=== PATIENT | male | born 1935 | race Caucasian/White ===

== ENCOUNTER 2016-10-31 08:34 | Inpatient (IN) ==
[2016-10-31 09:19] LABS: URINE CULTURE PL NEEDED? NO; URINE SOURCE CLEAN CATCH
[2016-10-31] MEDS ORDERED: SOLU-MEDROL IV ONE (09:29)
--- NOTE | 2016-10-31 09:36 | Diag Imaging Result Document ---
PROCEDURE NAME: CHEST-2 VIEWS - 10/31/2016 CHEST, 2 VIEWS: COMPARISON: 05/11/2013. FINDINGS: Heart size is normal. There are sternal wires from previous surgery. There is some tortuosity of the thoracic aorta which appears stable. The lungs appear essentially clear. There is no consolidation, pleural effusion, or pneumothorax identified. IMPRESSION: No evidence of acute disease.
[2016-10-31 09:38] LABS: AGAP 15; ALBUMIN 3.8 g/dL (3.5-5.0); ALKALINE PHOSPHATASE 74 U/L (32-122); BASO% 0.1 % (0.0-0.8); BUN 18 mg/dL (8-22); CHLORIDE 99 mmol/L (98-107); CK PROFILE 23 U/L (24-204); COSMO 276; GOT 16 U/L (10-34); GPT 9 U/L (10-44); HEMATOCRIT 39.9 % (42.0-52.0); IMM GRAN# 0.03 X1000 (0.0-0.04); IMM GRAN% 0.3 % (0.0-0.5); INR 0.92 (0.86-1.15); LYMPH# 0.53 X1000 (1.2-3.4); LYMPH% 5.3 % (20.5-51.1); MAGNESIUM 1.8 mg/dL (1.5-2.7); MANUAL DIFF NEEDED? NO; MCH 30.2 PG (27-31); MCHC 35.1 g/dL (33-37); MONO# 0.72 X1000 (0.11-0.59); MONO% 7.2 % (1.7-9.3); MPV 10.3 FL (7.4-10.4); NEUT% 87.1 % (42.2-75.2); PLT 201 X1000 (130-400); POTASSIUM 4.1 mmol/L (3.5-5.1); PROTIME 12.7 Seconds (12.1-15.5); RBC 4.64 XMIL (4.7-6.1); SODIUM 137 mmol/L (136-145); TCO2 23 mmol/L (25-35); TOTAL PROTEIN 6.5 g/dL (6.3-8.3)
[2016-10-31 09:40] LABS: BE 2.8 mmoll (-3.0-3.0); BLOOD TYPE ARTERIAL; DRAW SITE L RADIAL; METHB 1.6 % (0.0-1.5); O2(CT) 18.8 mL/dL (15.0-23.0); PCO2(98.6) 40 mmHg (35-45); PO2(98.6) 69 mmHg (60-100); SAMPLE BLOOD; SAO2 96.5 % (95.0-100.0); THB 14.4 g/dL (11.5-17.4); pH(98.6) 7.44 (7.35-7.45)
--- NOTE | 2016-10-31 09:41 | PROVIDER DOCUMENTATION ---
HPI-Respiratory General - General Chief Complaint: Shortness of Breath Stated Complaint: Cough/SOB Time Seen by Provider: 10/31/16 08:43 Source: patient, family, EMS Allergies/Adverse Reactions: Patient Allergies Allergy/AdvReac Type Severity Reaction Status Date / Time Sulfa (Sulfonamide Allergy HIVES Verified 10/31/16 08:42 Antibiotics) Home Medications: Home Medication List Medication Instructions Recorded Confirmed Last Taken Type ATORVAstatin [Lipitor] 10 mg PO DAILY 06/26/15 10/31/16 Unknown History Albuterol 2.5MG/Ipratrop 0.5MG 3 ml PO DAILY 06/26/15 10/31/16 Unknown History [Duoneb (A & A)] Clopidogrel Bisulfate [Plavix] 75 mg PO DAILY 06/26/15 10/31/16 Unknown History Ipratropium [place] 450 ml PO TID 06/26/15 10/31/16 Unknown History Metoprolol Succinate [Toprol Xl] 50 mg PO BID 06/26/15 10/31/16 Unknown History Omeprazole [Prilosec] 20 mg PO DAILY 06/26/15 10/31/16 Unknown History Tamsulosin [Flomax] 0.4 mg PO DAILY 06/26/15 10/31/16 Unknown History Telmisartan [Micardis] 80 mg PO DAILY 06/26/15 10/31/16 Unknown History Allopurinol 100 mg PO DAILY 10/31/16 10/31/16 Unknown History Azelastine 205.5 Mcg Nasal Spr 2 spray INH DAILY 10/31/16 10/31/16 Unknown History [Astepro Nasal [place]] Fluticasone/[place] 250/50 INH 1 puff INH BID 10/31/16 10/31/16 Unknown History [Advair 250/50 Diskus] Tiotropium [place] Inhaler 1 puff INH DAILY 10/31/16 10/31/16 Unknown History [Spiriva] - History of Present Illness-Resp Nature of Presenting Problem: Pt is a 81 yom that presents to er with cc cough,sob,generalized weakness and fever of 101.2 this am. Pt seen pcp on Friday was given Zpak and prednisone for possible pneumonia and family reports pt became febrile and too weak to walk today so they called EMS. Pt has a hx of tia,triple bypass,and abd aneurysm. Family reports pt had to use emergency inhaler this am. Also has Copd no home o2. Severity in ED: reports: moderate Onset/Duration: reports: 2 days ago Timing: reports: still present Cough Quality/Degree: reports: dry cough Current Respiratory Medication Therapy: Initiated see nurses note Review of Systems - Adult - REVIEW OF SYSTEMS - ADULT Constitutional: reports: fever, fatique. denies: chills, night sweats, weight gain, weight loss Eyes: reports: no symptoms reported Ears, Nose, Mouth & Throat: denies: ear pain, sinus problem, throat pain Cardiovascular: denies: chest pain (tightness), irregular heart rate, orthopnea , syncope Respiratory: reports: cough, shortness of breath. denies: pleurisy, wheezing Gastrointestinal: denies: abdominal pain, diarrhea, nausea, vomiting Genitourinary: reports: no symptoms reported Musculoskeletal: reports: muscle weakness. denies: bone pain, joint pain, joint swelling, neck pain Integumentary: reports: no symptoms reported Neurological: reports: no symptoms reported Psychiatric: reports: no symptoms reported Endocrine: reports: no symptoms reported Hematologic/Lymphatic: reports: no symptoms reported Allergic/Immunologic: reports: no symptoms reported All Other Systems: Reviewed and Negative Past History - Adult - PAST MEDICAL HISTORY-ADULT Review of Records: reports: Nursing Assessment Review Major Childhood Illnesses: reports: denies history Cardiovascular: reports: CHF, HTN, hyperlipidemia Respiratory: reports: COPD Neurological: reports: TIA - PRIOR SURGERIES/PROCEDURES Surgical/Procedure History: reports: reviewed, not pertinent, other (triple bypass;AAA) - IMMUNIZATION STATUS Childhood Immunizations: See Nurse Assessment Flu Vaccine: See Nurse Assessment - SOCIAL HISTORY Smoking: denies Substance Use: none/never Physical Exam-General - PHYSICAL EXAM-ADULT Initial Vital Signs Reviewed: Yes - CONSTITUTIONAL General Appearance: alert, mild distress. negative: appears well (ill appearing ) - EYES Eyes: PERRL/EOMI - HEAD, EARS, NOSE, MOUTH & THROAT HENMT: moist mucous membranes - NECK Neck: non-tender, full range of motion, supple, normal inspection - RESPIRATORY Respiratory: chest non-tender, decreased breath sounds, wheezing (bilaterally), increased rate - CARDIOVASCULAR Cardiovascular: regular rate, rhythm - GASTROINTESTINAL (ABDOMEN) Abdominal Exam: normal bowel sounds, non tender, soft - MUSCULOSKELETAL Extremity: normal range of motion, non-tender - SKIN Integumentary: normal color, normal turgor, diaphoresis - NEUROLOGIC Neurologic: grossly normal - PSYCHIATRIC Psych/Mental Status: normal mood/affect, normal thought content, normal thought process, oriented x 3 Progress - PLAN OF CARE/RESULTS Progress/Plan/Lab Results: Orders Category Date Time Status Cardiac Monitoring DIRECTED Care 10/31/16 08:46 Active Saline Loc NOW Care 10/31/16 08:46 Active CHEST-2 VIEWS [RAD] Stat Exams 10/31/16 08:46 Draft ABG [RESP] Routine Lab 10/31/16 09:29 Ordered BLOOD CULTURE [BLDCUL] Stat Lab 10/31/16 08:46 Ordered CBC WITH ELECTRONIC DIFF [HEME] Stat Lab 10/31/16 08:58 Completed CK PROFILE [SP CHEM] Stat Lab 10/31/16 08:58 Completed COMPREHENSIVE METABOLIC PANEL [CHEM] Stat Lab 10/31/16 08:58 Completed Flu [INFLUENZA SCREEN PL] Stat Lab 10/31/16 08:45 Completed LACTATE, PLASMA [CHEM] Stat Lab 10/31/16 09:29 Received MAGNESIUM [CHEM] Stat Lab 10/31/16 08:58 Completed PRO B-NATRIURETIC PEPTIDE Stat Lab 10/31/16 08:58 Completed [address]OTIME WITH INR PL [COAG] Stat Lab 10/31/16 08:[address] [COAG] Stat Lab 10/31/16 08:58 Completed TROPONIN T Stat Lab 10/31/16 08:58 Completed UA [URINALYSIS PL W/POSS RFLX CULT] [URINALYSIS] Stat Lab 10/31/16 09:06 Results Methylprednisolone Sod Succ [Solu-Medrol] Med 10/31/16 09:29 Discontinued 125 mg IV NOW ONE EKG [EKG] Stat Ther 10/31/16 08:46 Ordered Vital Signs - 24 hr 10/31/16 08:35 Temperature 101.2 F H Pulse Rate 96 H Respiratory 24 Rate O2 Sat by Pulse 94 L Oximetry Laboratory Tests 10/31/16 10/31/16 10/31/16 08:45 08:58 08:58 WBC 9.95 RBC 4.64 L Hgb 14.0 Hct 39.9 L MCV 86.0 MCH 30.2 MCHC 35.1 RDW Std Deviation 12.6 Plt Count 201 MPV 10.3 Immature Gran % (Auto) 0.3 Neut % (Auto) 87.1 H Lymph % (Auto) 5.3 L Wirt % (Auto) 7.2 Eos % (Auto) 0.0 Baso % (Auto) 0.1 Immature Gran # (Auto) 0.03 Neut # (Auto) 8.66 H Lymph # (Auto) 0.53 L Wirt # (Auto) 0.72 H Eos # (Auto) 0.00 Baso # (Auto) 0.01 PT INR APTT (Factor Assay) Sodium 137 Potassium 4.1 Chloride 99 Carbon Dioxide 23 L Anion Gap 15 BUN 18 Creatinine 1.4 H BUN/Creatinine Ratio 13 Glucose 108 H Calculated Osmolality 276 Calcium 9.0 Magnesium 1.8 Total Bilirubin 0.40 AST 16 ALT 9 L Alkaline Phosphatase 74 Creatine Kinase 23 L Troponin T Llt-A-Ndqltaxoweh Pept Total Protein 6.5 Albumin 3.8 Globulin 3.0 Albumin/Globulin Ratio 1.0 Urine Source Influenza A (Rapid) NEGATIVE Influenza B (Rapid) NEGATIVE 10/31/16 10/31/16 10/31/16 08:58 08:58 08:58 WBC RBC Hgb Hct MCV MCH MCHC RDW Std Deviation Plt Count MPV Immature Gran % (Auto) Neut % (Auto) Lymph % (Auto) Wirt % (Auto) Eos % (Auto) Baso % (Auto) Immature Gran # (Auto) Neut # (Auto) Lymph # (Auto) Wirt # (Auto) Eos # (Auto) Baso # (Auto) PT 12.7 INR 0.92 APTT (Factor Assay) 28.0 Sodium Potassium Chloride Carbon Dioxide Anion Gap BUN Creatinine BUN/Creatinine Ratio Glucose Calculated Osmolality Calcium Magnesium Total Bilirubin AST ALT Alkaline Phosphatase Creatine Kinase Troponin T < 0.010 Wck-J-Zsqyciczelg Pept 905 H Total Protein Albumin Globulin Albumin/Globulin Ratio Urine Source Influenza A (Rapid) Influenza B (Rapid) 10/31/16 09:06 WBC RBC Hgb Hct MCV MCH MCHC RDW Std Deviation Plt Count MPV Immature Gran % (Auto) Neut % (Auto) Lymph % (Auto) Wirt % (Auto) Eos % (Auto) Baso % (Auto) Immature Gran # (Auto) Neut # (Auto) Lymph # (Auto) Wirt # (Auto) Eos # (Auto) Baso # (Auto) PT INR APTT (Factor Assay) Sodium Potassium Chloride Carbon Dioxide Anion Gap BUN Creatinine BUN/Creatinine Ratio Glucose Calculated Osmolality Calcium Magnesium Total Bilirubin AST ALT Alkaline Phosphatase Creatine Kinase Troponin T Owa-Z-Mwpisumoywf Pept Total Protein Albumin Globulin Albumin/Globulin Ratio Urine Source CLEAN CATCH Influenza A (Rapid) Influenza B (Rapid) Laboratory Tests 10/31/16 10/31/16 10/31/16 08:45 08:58 08:58 WBC 9.95 RBC 4.64 L Hgb 14.0 Hct 39.9 L MCV 86.0 MCH 30.2 MCHC 35.1 RDW Std Deviation 12.6 Plt Count 201 MPV 10.3 Immature Gran % (Auto) 0.3 Neut % (Auto) 87.1 H Lymph % (Auto) 5.3 L Wirt % (Auto) 7.2 Eos % (Auto) 0.0 Baso % (Auto) 0.1 Immature Gran # (Auto) 0.03 Neut # (Auto) 8.66 H Lymph # (Auto) 0.53 L Wirt # (Auto) 0.72 H Eos # (Auto) 0.00 Baso # (Auto) 0.01 PT INR APTT (Factor Assay) D-Dimer Specimen Type Sample Site pH pCO2 pO2 HCO3 Base Excess Oxyhemoglobin ABG O2 Sat (Calculated) ABG O2 Saturation ABG Carboxyhemoglobin ABG Methemoglobin Raul Test A-a O2 Difference Total Hemoglobin Lactate Liter Flow Blood Gas Modality FiO2 % Sodium 137 Potassium 4.1 Chloride 99 Carbon Dioxide 23 L Anion Gap 15 BUN 18 Creatinine 1.4 H BUN/Creatinine Ratio 13 Glucose 108 H Calculated Osmolality 276 Calcium 9.0 Magnesium 1.8 Total Bilirubin 0.40 AST 16 ALT 9 L Alkaline Phosphatase 74 Creatine Kinase 23 L Troponin T Fkt-N-Krmpmkbqabn Pept Total Protein 6.5 Albumin 3.8 Globulin 3.0 Albumin/Globulin Ratio 1.0 Plasma Lactate Urine Source Urine Color Urine Clarity Urine pH Ur Specific [place] Urine Protein Urine Ketones Urine Blood Urine Nitrite Urine Bilirubin Urine Urobilinogen Urine Microscopic RBC Urine WBC Ur Epithelial Cells Urine Glucose Influenza A (Rapid) NEGATIVE Influenza B (Rapid) NEGATIVE 10/31/16 10/31/16 10/31/16 08:58 08:58 08:58 WBC RBC Hgb Hct MCV MCH MCHC RDW Std Deviation Plt Count MPV Immature Gran % (Auto) Neut % (Auto) Lymph % (Auto) Wirt % (Auto) Eos % (Auto) Baso % (Auto) Immature Gran # (Auto) Neut # (Auto) Lymph # (Auto) Wirt # (Auto) Eos # (Auto) Baso # (Auto) PT 12.7 INR 0.92 APTT (Factor Assay) 28.0 D-Dimer Specimen Type Sample Site pH pCO2 pO2 HCO3 Base Excess Oxyhemoglobin ABG O2 Sat (Calculated) ABG O2 Saturation ABG Carboxyhemoglobin ABG Methemoglobin Raul Test A-a O2 Difference Total Hemoglobin Lactate Liter Flow Blood Gas Modality FiO2 % Sodium Potassium Chloride Carbon Dioxide Anion Gap BUN Creatinine BUN/Creatinine Ratio Glucose Calculated Osmolality Calcium Magnesium Total Bilirubin AST ALT Alkaline Phosphatase Creatine Kinase Troponin T < 0.010 Upv-F-Zulpccgrecd Pept 905 H Total Protein Albumin Globulin Albumin/Globulin Ratio Plasma Lactate Urine Source Urine Color Urine Clarity Urine pH Ur Specific [place] Urine Protein Urine Ketones Urine Blood Urine Nitrite Urine Bilirubin Urine Urobilinogen Urine Microscopic RBC Urine WBC Ur Epithelial Cells Urine Glucose Influenza A (Rapid) Influenza B (Rapid) 10/31/16 10/31/16 10/31/16 08:58 09:06 09:15 WBC RBC Hgb Hct MCV MCH MCHC RDW Std Deviation Plt Count MPV Immature Gran % (Auto) Neut % (Auto) Lymph % (Auto) Wirt % (Auto) Eos % (Auto) Baso % (Auto) Immature Gran # (Auto) Neut # (Auto) Lymph # (Auto) Wirt # (Auto) Eos # (Auto) Baso # (Auto) PT INR APTT (Factor Assay) D-Dimer 2.12 H Specimen Type ARTERIAL Sample Site L RADIAL pH 7.44 pCO2 40 pO2 69 HCO3 27.0 H Base Excess 2.8 Oxyhemoglobin 93.0 L ABG O2 Sat (Calculated) 18.8 ABG O2 Saturation 96.5 ABG Carboxyhemoglobin 2.10 ABG Methemoglobin 1.6 H Raul Test NO A-a O2 Difference 81.0 Total Hemoglobin 14.4 Lactate 0.90 Liter Flow 2.0 Blood Gas Modality CANNULA FiO2 % 28.0 Sodium Potassium Chloride Carbon Dioxide Anion Gap BUN Creatinine BUN/Creatinine Ratio Glucose Calculated Osmolality Calcium Magnesium Total Bilirubin AST ALT Alkaline Phosphatase Creatine Kinase Troponin T Ukq-R-Prfdhlejrcd Pept Total Protein Albumin Globulin Albumin/Globulin Ratio Plasma Lactate Urine Source CLEAN CATCH Urine Color YELLOW Urine Clarity CLEAR Urine pH 6.5 Ur Specific [place] 1.010 Urine Protein TRACE A Urine Ketones NEGATIVE Urine Blood 4+ Urine Nitrite NEGATIVE Urine Bilirubin NEGATIVE Urine Urobilinogen NORMAL Urine Microscopic RBC 20-40 A Urine WBC NEGATIVE Ur Epithelial Cells <10 Urine Glucose NEGATIVE Influenza A (Rapid) Influenza B (Rapid) 10/31/16 09:29 WBC RBC Hgb Hct MCV MCH MCHC RDW Std Deviation Plt Count MPV Immature Gran % (Auto) Neut % (Auto) Lymph % (Auto) Wirt % (Auto) Eos % (Auto) Baso % (Auto) Immature Gran # (Auto) Neut # (Auto) Lymph # (Auto) Wirt # (Auto) Eos # (Auto) Baso # (Auto) PT INR APTT (Factor Assay) D-Dimer Specimen Type Sample Site pH pCO2 pO2 HCO3 Base Excess Oxyhemoglobin ABG O2 Sat (Calculated) ABG O2 Saturation ABG Carboxyhemoglobin ABG Methemoglobin Raul Test A-a O2 Difference Total Hemoglobin Lactate Liter Flow Blood Gas Modality FiO2 % Sodium Potassium Chloride Carbon Dioxide Anion Gap BUN Creatinine BUN/Creatinine Ratio Glucose Calculated Osmolality Calcium Magnesium Total Bilirubin AST ALT Alkaline Phosphatase Creatine Kinase Troponin T Rji-L-Nxjavrzooqv Pept Total Protein Albumin Globulin Albumin/Globulin Ratio Plasma Lactate 1.3 Urine Source Urine Color Urine Clarity Urine pH Ur Specific [place] Urine Protein Urine Ketones Urine Blood Urine Nitrite Urine Bilirubin Urine Urobilinogen Urine Microscopic RBC Urine WBC Ur Epithelial Cells Urine Glucose Influenza A (Rapid) Influenza B (Rapid) Laboratory Tests 10/31/16 10/31/16 10/31/16 08:45 08:58 08:58 WBC 9.95 RBC 4.64 L Hgb 14.0 Hct 39.9 L MCV 86.0 MCH 30.2 MCHC 35.1 RDW Std Deviation 12.6 Plt Count 201 MPV 10.3 Immature Gran % (Auto) 0.3 Neut % (Auto) 87.1 H Lymph % (Auto) 5.3 L Wirt % (Auto) 7.2 Eos % (Auto) 0.0 Baso % (Auto) 0.1 Immature Gran # (Auto) 0.03 Neut # (Auto) 8.66 H Lymph # (Auto) 0.53 L Wirt # (Auto) 0.72 H Eos # (Auto) 0.00 Baso # (Auto) 0.01 PT INR APTT (Factor Assay) D-Dimer Specimen Type Sample Site pH pCO2 pO2 HCO3 Base Excess Oxyhemoglobin ABG O2 Sat (Calculated) ABG O2 Saturation ABG Carboxyhemoglobin ABG Methemoglobin Raul Test A-a O2 Difference Total Hemoglobin Lactate Liter Flow Blood Gas Modality FiO2 % Sodium 137 Potassium 4.1 Chloride 99 Carbon Dioxide 23 L Anion Gap 15 BUN 18 Creatinine 1.4 H BUN/Creatinine Ratio 13 Glucose 108 H Calculated Osmolality 276 Calcium 9.0 Magnesium 1.8 Total Bilirubin 0.40 AST 16 ALT 9 L Alkaline Phosphatase 74 Creatine Kinase 23 L Troponin T Pkh-E-Yxzelbekrua Pept Total Protein 6.5 Albumin 3.8 Globulin 3.0 Albumin/Globulin Ratio 1.0 Plasma Lactate Urine Source Urine Color Urine Clarity Urine pH Ur Specific [place] Urine Protein Urine Ketones Urine Blood Urine Nitrite Urine Bilirubin Urine Urobilinogen Urine Microscopic RBC Urine WBC Ur Epithelial Cells Urine Glucose Influenza A (Rapid) NEGATIVE Influenza B (Rapid) NEGATIVE 10/31/16 10/31/16 10/31/16 08:58 08:58 08:58 WBC RBC Hgb Hct MCV MCH MCHC RDW Std Deviation Plt Count MPV Immature Gran % (Auto) Neut % (Auto) Lymph % (Auto) Wirt % (Auto) Eos % (Auto) Baso % (Auto) Immature Gran # (Auto) Neut # (Auto) Lymph # (Auto) Wirt # (Auto) Eos # (Auto) Baso # (Auto) PT 12.7 INR 0.92 APTT (Factor Assay) 28.0 D-Dimer Specimen Type Sample Site pH pCO2 pO2 HCO3 Base Excess Oxyhemoglobin ABG O2 Sat (Calculated) ABG O2 Saturation ABG Carboxyhemoglobin ABG Methemoglobin Raul Test A-a O2 Difference Total Hemoglobin Lactate Liter Flow Blood Gas Modality FiO2 % Sodium Potassium Chloride Carbon Dioxide Anion Gap BUN Creatinine BUN/Creatinine Ratio Glucose Calculated Osmolality Calcium Magnesium Total Bilirubin AST ALT Alkaline Phosphatase Creatine Kinase Troponin T < 0.010 Pei-P-Wsouqvrgand Pept 905 H Total Protein Albumin Globulin Albumin/Globulin Ratio Plasma Lactate Urine Source Urine Color Urine Clarity Urine pH Ur Specific [place] Urine Protein Urine Ketones Urine Blood Urine Nitrite Urine Bilirubin Urine Urobilinogen Urine Microscopic RBC Urine WBC Ur Epithelial Cells Urine Glucose Influenza A (Rapid) Influenza B (Rapid) 10/31/16 10/31/16 10/31/16 08:58 09:06 09:15 WBC RBC Hgb Hct MCV MCH MCHC RDW Std Deviation Plt Count MPV Immature Gran % (Auto) Neut % (Auto) Lymph % (Auto) Wirt % (Auto) Eos % (Auto) Baso % (Auto) Immature Gran # (Auto) Neut # (Auto) Lymph # (Auto) Wirt # (Auto) Eos # (Auto) Baso # (Auto) PT INR APTT (Factor Assay) D-Dimer 2.12 H Specimen Type ARTERIAL Sample Site L RADIAL pH 7.44 pCO2 40 pO2 69 HCO3 27.0 H Base Excess 2.8 Oxyhemoglobin 93.0 L ABG O2 Sat (Calculated) 18.8 ABG O2 Saturation 96.5 ABG Carboxyhemoglobin 2.10 ABG Methemoglobin 1.6 H Raul Test NO A-a O2 Difference 81.0 Total Hemoglobin 14.4 Lactate 0.90 Liter Flow 2.0 Blood Gas Modality CANNULA FiO2 % 28.0 Sodium Potassium Chloride Carbon Dioxide Anion Gap BUN Creatinine BUN/Creatinine Ratio Glucose Calculated Osmolality Calcium Magnesium Total Bilirubin AST ALT Alkaline Phosphatase Creatine Kinase Troponin T Vdq-R-Eaoynqapnvw Pept Total Protein Albumin Globulin Albumin/Globulin Ratio Plasma Lactate Urine Source CLEAN CATCH Urine Color YELLOW Urine Clarity CLEAR Urine pH 6.5 Ur Specific [place] 1.010 Urine Protein TRACE A Urine Ketones NEGATIVE Urine Blood 4+ Urine Nitrite NEGATIVE Urine Bilirubin NEGATIVE Urine Urobilinogen NORMAL Urine Microscopic RBC 20-40 A Urine WBC NEGATIVE Ur Epithelial Cells <10 Urine Glucose NEGATIVE Influenza A (Rapid) Influenza B (Rapid) 10/31/16 09:29 WBC RBC Hgb Hct MCV MCH MCHC RDW Std Deviation Plt Count MPV Immature Gran % (Auto) Neut % (Auto) Lymph % (Auto) Wirt % (Auto) Eos % (Auto) Baso % (Auto) Immature Gran # (Auto) Neut # (Auto) Lymph # (Auto) Wirt # (Auto) Eos # (Auto) Baso # (Auto) PT INR APTT (Factor Assay) D-Dimer Specimen Type Sample Site pH pCO2 pO2 HCO3 Base Excess Oxyhemoglobin ABG O2 Sat (Calculated) ABG O2 Saturation ABG Carboxyhemoglobin ABG Methemoglobin Raul Test A-a O2 Difference Total Hemoglobin Lactate Liter Flow Blood Gas Modality FiO2 % Sodium Potassium Chloride Carbon Dioxide Anion Gap BUN Creatinine BUN/Creatinine Ratio Glucose Calculated Osmolality Calcium Magnesium Total Bilirubin AST ALT Alkaline Phosphatase Creatine Kinase Troponin T Puh-L-Lomupedezlk Pept Total Protein Albumin Globulin Albumin/Globulin Ratio Plasma Lactate 1.3 Urine Source Urine Color Urine Clarity Urine pH Ur Specific [place] Urine Protein Urine Ketones Urine Blood Urine Nitrite Urine Bilirubin Urine Urobilinogen Urine Microscopic RBC Urine WBC Ur Epithelial Cells Urine Glucose Influenza A (Rapid) Influenza B (Rapid) 1459 Dr. Kathleen woods - REASSESSMENT Reassessment #1 Time Reassessed: 09:50 (Pt vomiting was given Zofran) - XRAY 1 XRAY: Bilateral XRAY Study: Chest Impression: Normal (Impression: No evidence of acute disease ([place])) - CT/MRI 1 CT Study: other (Lung VQ scan) Impression: Abnormal (intermediate probability for pulmonary embolism) Departure - Departure Time of Disposition Order: 14:59 DIAGNOSIS: COPD exacerbation, Respiratory distress, Elevated d-dimer Disposition: ADMITTED INPATIENT 09 Certified Medical Emergency: Emergent Condition: Stable Referrals: Pedrito Michelle MD [Primary Care Provider] - Attestation - Scribe Verification/Attestation Scribe:: Doug Barba Acting as Scribe for:: Syead Yañez Scribe documention review:: This chart was documented by a scribe and accurately reflects the service the provider performed and the decisions made by the provider.
[2016-10-31 09:42] LABS: MODALITY CANNULA
[2016-10-31] MEDS ORDERED: ZOFRAN ONE (09:47)
[2016-10-31] MEDS ORDERED: ALBUTEROL NEB INH ONE (09:52)
[2016-10-31] MEDS ORDERED: ATROVENT NEB INH ONE (09:52)
[2016-10-31 09:59] LABS: BILIRUBIN URINE NEGATIVE (NEGATIVE); CLARITY CLEAR (CLEAR); COLOR YELLOW; GLUCOSE URINE NEGATIVE (NEGATIVE); URINE EPITHELIAL CELLS <10 /HPF (<10); URINE RBC 20-40 /HPF (<10)
[2016-10-31] MEDS ORDERED: ZOFRAN IV ONE (10:00)
[2016-10-31 10:09] LABS: BLOOD URINE 4+ (NEGATIVE); LEUKOCYTES URINE NEGATIVE (NEGATIVE); NITRITE URINE NEGATIVE (NEGATIVE); PH URINE 6.5; PROTEIN URINE TRACE mg/dL (NEGATIVE); UROBILINOGEN URINE NORMAL
[2016-10-31] MEDS ORDERED: ALBUTEROL NEB ONE (10:12)
[2016-10-31] MEDS ORDERED: LEVAQUIN 750 MG/D5W 150 ML IV ONE (12:27)
--- NOTE | 2016-10-31 15:06 | Diag Imaging Result Document ---
PROCEDURE NAME: LUNG SCAN / VQ - 10/31/2016 PULMONARY VENTILATION/PERFUSION SCAN: COMPARISON: Chest x-ray earlier 10/31/2016. FINDINGS: 37.2 mCi of DTPA was used for inhalation. 6.1 mCi of MAA was used for perfusion. There is a significant matching ventilation and perfusion defects at both lung apices, right greater than left. No other perfusion defects. There is heterogeneous distribution of the inhaled radiotracer indicating severe COPD. IMPRESSION: Intermediate probability for pulmonary embolism.
[2016-10-31] MEDS ORDERED: ZOFRAN IV PRN (17:50)
[2016-10-31] MEDS ORDERED: DUONEB (A & A) INH PRN (18:14)
--- NOTE | 2016-10-31 18:42 | HISTORY AND PHYSICAL ---
CHIEF COMPLAINT: "I couldn't stand up, I was too weak." HISTORY OF PRESENT ILLNESS: This is an 81-year-old, male with a history of CAD status post bypass, CHF, COPD and hypertension. He presented to the emergency room after being unable to stand up from a sitting position. He states that he was in his normal state of health until last Friday. He developed an upper respiratory illness with a pretty significant cough and his temperature at that time maxed at 99.8. He started feeling better Friday and then Friday he got really ill, having fevers. He stated he would cough so hard that he would gag. He was seen by his primary care physician on Friday and given Zithromax, steroids and cough syrup. He has continued with increasing symptoms to the point of weakness and inability to stand this morning. In the emergency room he was found to have a D-dimer of 2.12. Because of his kidney function a V/Q scan was performed which revealed an intermediate probability for pulmonary embolism and severe COPD. Of note he did have a temperature of 101.2 degrees on arrival. Blood cultures were obtained. He was given Solu-Medrol, DuoNebs and Levaquin, and admitted for further evaluation and treatment. PAST MEDICAL HISTORY: CAD status post coronary artery bypass graft, CHF, COPD, hyperlipidemia, hypertension. PAST SURGICAL HISTORY: Coronary artery bypass graft, AAA repair, stents in both legs. SOCIAL HISTORY: He denies alcohol, tobacco, or illicit drug use. He does live with his daughter who is active in his care. ALLERGIES: Sulfa which causes hives. HOME MEDICATIONS: Micardis 80 mg daily, Flomax 0.4 daily, Prilosec 20 daily, Toprol-XL 50 b.i.d., Advair 250/50, 1 puff b.i.d., Plavix 75 daily, allopurinol 100 daily, DuoNebs p.o. daily, Lipitor 10 daily, Spiriva 1 puff daily. REVIEW OF SYSTEMS: A 14 point review of systems was discussed with patient with pertinent positives as stated in HPI. He denied chest pain, palpitations, dizziness, syncope, productive cough, PND, orthopnea, nausea, vomiting, diarrhea, constipation, black or bloody vomitus, black or bloody stools. PHYSICAL EXAMINATION: GENERAL: This is an 81-year-old, male, who is sitting up in the bed, in no distress. VITAL SIGNS: Blood pressure is 136/71 with a heart rate of 98, respirations are 18, temperature is 97.8 degrees oral with a T-max of 101.2 degrees on arrival, and oxygen saturation of 91-94% on 2 L nasal cannula. HEENT: Head is normocephalic, atraumatic. Pupils equal, round, reactive to light. EOMs are intact. Sclerae nonicteric. Mucous membranes are dry. NECK: Supple. Trachea midline. CARDIOVASCULAR: Regular rate and rhythm. S1, S2 appreciated. PULMONARY: He has scattered wheezing throughout with prolonged expiration. Chest does rise and fall symmetrically. GASTROINTESTINAL: Soft, nontender, nondistended with bowel sounds in all 4 quadrants. MUSCULOSKELETAL: Good range of motion of joints. NEUROLOGIC: He is alert and oriented x3. EXTREMITIES: No clubbing, cyanosis, or edema. Pulses are palpable x4. Calves are nontender. DIAGNOSTICS: WBC is 9.9 with hemoglobin 14, hematocrit 39.9 and platelets of 201,000. D-dimer is 2.12. Sodium is 137, potassium 4.1, BUN 18, creatinine 1.4 with a glucose of 108. Troponin is negative. Urinalysis revealed 4+ blood with 20-40 microscopic red blood cells. Flu A and B are negative. V/Q lung scan revealed indeterminate probability of PE with severe COPD. ASSESSMENT: 1. Chronic obstructive pulmonary disease exacerbation acute on chronic. 2. Fever. 3. Elevated D-dimer with indeterminate probability for pulmonary embolism. 4. Hematuria new onset. 5. Congestive heart failure. 6. Hypertension. 7. Coronary artery disease. 8. DVT prophylaxis and GI prophylaxis. PLAN: He will be admitted to the hospital. He will be placed on telemetry. We will continue with supplemental oxygen. We will give DuoNebs q.4 hours and q.2 hours p.r.n. Steroids to taper. We will continue his home medications as appropriate. He states he does have a history of BPH and he had a lot of difficulty emptying his bladder in the emergency room. The daughter states that he voided twice there and both times she saw red blood in with the urine. We will scan his bladder. We will increase his Flomax to b.i.d. If he is in retention, we will place a Ball. Blood cultures were obtained. We will send his urine for culture as well. We will start Levaquin for antibiotic coverage. We are unsure of heart failure, unsure of status. There is no echocardiogram in the computer. We will give him gentle hydration. Obtain echocardiogram in the morning. He does have an elevated D-dimer but in the setting of hematuria with his daughter stating she saw red blood in his urine twice in the emergency room. We will hold off on anticoagulation. We will evaluate his urine. Get a lower extremity Doppler. For GI prophylaxis we will give Prilosec. Further treatments pending hospital course. Dictated by SHANIA Woodard for Tutu Wang MD cc: SHANIA Woodard MD pt examined, agree with above, will pursue dvt/pe work-up [facility]
[2016-10-31] MEDS: SOLU-MEDROL IV SCH (18:47)
[2016-10-31] MEDS: LEVAQUIN 500 MG/D5W 100 ML IV SCH (18:47)
[2016-10-31] MEDS: ROBITUSSIN-AC PO PRN ×2 (18:47→23:47)
[2016-10-31] MEDS: ADVAIR 250/50 DISKUS INH SCH (19:33)
[2016-10-31] MEDS: DUONEB (A & A) INH SCH ×2 (19:33→23:23)
[2016-10-31] MEDS: FLOMAX PO SCH (20:17)
[2016-10-31] MEDS: TOPROL XL PO SCH (20:17)
[2016-10-31 23:53] LABS: URINE SOURCE CLEAN CATCH
[2016-11-01 00:17] LABS: BILIRUBIN URINE NEGATIVE (NEGATIVE); BLOOD URINE 4+ (NEGATIVE); CLARITY CLEAR (CLEAR); COLOR YELLOW; GLUCOSE URINE NEGATIVE (NEGATIVE); LEUKOCYTES URINE 1+ (NEGATIVE); NITRITE URINE NEGATIVE (NEGATIVE); PROTEIN URINE NEGATIVE (NEGATIVE); UROBILINOGEN URINE NORMAL
[2016-11-01 00:18] LABS: URINE CULTURE PL NEEDED? YES; URINE EPITHELIAL CELLS <10 /HPF (<10); URINE RBC 20-40 /HPF (<10)
[2016-11-01] MEDS: SOLU-MEDROL IV SCH ×3 (01:15→14:07)
[2016-11-01] MEDS: DUONEB (A & A) INH SCH ×6 (03:39→22:43)
[2016-11-01] MEDS: ROBITUSSIN-AC PO PRN ×3 (03:50→19:45)
[2016-11-01 07:03] LABS: HEMATOCRIT 38.7 % (42.0-52.0); HEMOGLOBIN 13.4 g/dL (14.0-18.0); MCH 29.5 PG (27-31); MCHC 34.6 g/dL (33-37); MCV 85.1 FL (81-99); MPV 10.4 FL (7.4-10.4); RBC 4.55 XMIL (4.7-6.1)
[2016-11-01 07:24] LABS: POTASSIUM 4.3 mmol/L (3.5-5.1)
[2016-11-01] MEDS ORDERED: SPIRIVA INH SCH (07:30)
[2016-11-01] MEDS: ADVAIR 250/50 DISKUS INH SCH (08:28)
[2016-11-01] MEDS: TOPROL XL PO SCH ×2 (09:00→20:39)
[2016-11-01] MEDS: FLOMAX PO SCH ×2 (09:00→20:39)
[2016-11-01] MEDS: PRILOSEC PO SCH ×2 (09:00→09:04)
[2016-11-01] MEDS: LIPITOR PO SCH ×2 (09:00→09:03)
[2016-11-01] MEDS ORDERED: FLOMAX PO SCH (09:00)
[2016-11-01] MEDS: PLAVIX PO SCH (09:00)
[2016-11-01] MEDS: ZYLOPRIM PO SCH ×2 (09:00→09:05)
[2016-11-01] MEDS: MICARDIS PO SCH (09:01)
[2016-11-01] MEDS: ASTEPRO NASAL SPRAY NAS SCH (09:01)
--- NOTE | 2016-11-01 09:31 | PROGRESS NOTE ---
DATE: 11/01/2016 SUBJECTIVE: The patient states he feels good today. He denies any weakness. He denies any shortness of breath. He states his cough is controlled with cough medication. OBJECTIVE: Vital Signs: Blood pressure is 182/75 with a heart rate of 81. Temperature is 98.1 oral with oxygen saturations of 94-100% on 2 L nasal cannula. Cardiovascular: Regular rate and rhythm. S1 and S2 appreciated. Pulmonary: Breath sounds are diminished but clear, with no increased work of breathing noted. Gastrointestinal: Abdomen is soft, nontender, nondistended with bowel sounds in all 4 quadrants. : Ball is patent with bedside bag with clear yellow urine draining. Extremities: No clubbing, cyanosis, or edema. Pulses are palpable x4. Calves are nontender. LABS: WBC is 13.5 with hemoglobin 13.4, hematocrit 38.7, and platelets of 210. Sodium is 136, potassium 4.3, BUN is 22, creatinine 1.5 with a glucose of 135. Urine culture revealed no growth. Echocardiogram and lower extremity Doppler pending. PROBLEM LIST: 1. Chronic obstructive pulmonary disease, acute on chronic exacerbation. 2. Fever-resolved. 3. Elevated D-dimer with indeterminate probability for pulmonary embolism with lower extremity Doppler pending. 4. Hematuria, new onset. 5. Congestive heart failure, history of. 6. Hypertension. 7. Coronary artery disease. We will continue with his current regimen. We will check room air saturations. Continue to taper steroids, as he did have gross hematuria per the family member and the patient's account report yesterday. We will continue to hold off on any anticoagulation. Once results of lower extremity Doppler and echo are in, then this can be re-evaluated by Dr. Garcia. We will continue Prilosec for GI prophylaxis. Dictated by SHANIA Woodard for Zoran Garcia MD
[2016-11-01] MEDS: NS 1,000 ML IV SCH (14:07)
--- NOTE | 2016-11-01 17:48 | ECHO REPORT ---
ORDER DATE: 11/01/2016 MEASUREMENTS: Left ventricular end-diastolic diameter 3.4, end-systolic diameter 2.7, septal thickness 1.5, posterior wall thickness 1.5, left atrium 3.9, aortic root 3.8 SUMMARY: 1. Technically difficult study due to limited acoustic window quality. 2. Aortic valve is without structural abnormality (question with mild aortic regurgitation). Mitral and tricuspid valves are without structural abnormality with mild mitral regurgitation and mild tricuspid regurgitation. Pulmonic valve is not well demonstrated. Estimated systolic PA pressure by Doppler is 45 mmHg. Aortic root is borderline enlarged. 3. Normal left ventricular chamber size with moderate concentric left hypertrophy is demonstrated. Estimated left ejection fraction is approximately 60%. No obvious regional wall motion abnormality is evident. Doppler suggests grade 1 left ventricular diastolic dysfunction. Left atrium is upper normal in size. Right atrium and right ventricle are of normal size with grossly preserved right ventricular systolic performance. 4. No pericardial effusion. 5. Appearance of inferior vena cava suggests normal central venous pressure. CONCLUSIONS: 1. Technically difficult study. 2. Mild aortic regurgitation. 3. Mild mitral regurgitation. 4. Mild tricuspid regurgitation with estimated systolic PA pressure by Doppler 45 mmHg. 5. Moderate concentric left hypertrophy with estimated left ejection fraction 60%. 6. Grade 1 left ventricular diastolic dysfunction. cc: MD Twyla Romeo CRNP
[2016-11-01] MEDS: LEVAQUIN 500 MG/D5W 100 ML IV SCH (17:54)
[2016-11-01 20:31] VITALS: BP 152/69
--- NOTE | 2016-11-01 22:34 | Extremity Venous Study ---
PROCEDURE NAME: Venous U/S Bilateral Legs - 11/01/2016 BILATERAL VENOUS FLOW EVALUATION: INDICATION: Elevated D-dimer. Evaluate for DVT. FINDINGS: The deep veins in the lower extremities demonstrate appropriate compressibility and augmentation. No intraluminal thrombus is visualized. There is no evidence for DVT. No superficial thrombus is identified. IMPRESSION: No evidence for deep venous thrombosis bilateral lower extremities.
[2016-11-02] MEDS: ROBITUSSIN-AC PO PRN (01:54)
[2016-11-02] MEDS: SOLU-MEDROL IV SCH ×2 (02:00→17:04)
[2016-11-02] MEDS: FLOMAX PO SCH (08:45)
[2016-11-02] MEDS: LIPITOR PO SCH (08:45)
[2016-11-02] MEDS: TOPROL XL PO SCH (08:45)
[2016-11-02] MEDS: ASTEPRO NASAL SPRAY NAS SCH (08:45)
[2016-11-02] MEDS: PLAVIX PO SCH (08:45)
[2016-11-02] MEDS: NS 1,000 ML IV SCH (17:04)
[2016-11-02] MEDS: PRILOSEC PO SCH (17:05)
[2016-11-02] MEDS: ZYLOPRIM PO SCH (17:06)
[2016-11-02] MEDS: MICARDIS PO SCH (17:08)
[2016-11-02] MEDS ORDERED: LEVAQUIN PO SCH (18:00)
--- NOTE | 2016-11-03 10:32 | DISCHARGE SUMMARY ---
ADMISSION DATE: 10/31/2016 DISCHARGE DATE: 11/02/2016 DISCHARGE DIAGNOSES: 1. Chronic obstructive pulmonary disease with exacerbation improved. 2. Fever resolved. 3. Sepsis resolved. 4. Elevated D-dimer with a negative V/Q scan. 5. Hematuria appears to be resolved. 6. Congestive heart failure. 7. Known coronary artery disease. CONSULTATIONS: None. PROCEDURES: None. BRIEF HOSPITAL COURSE: Patient is an 81-year-old male who presented to the emergency department and was subsequently diagnosed with COPD exacerbation. He was noted to have new onset hematuria that appears to be resolved. This will need to be followed up outpatient. He continues to improve. On discharge, he is awake, alert. He has no complaints other than the fact that steroids made him jittery and nervous and he was unable to sleep last night. Otherwise he feels back to his usual state of health. DISPOSITION: The patient will be discharged home DISCHARGE INSTRUCTIONS: He will need to follow up outpatient with Dr. Michelle regarding his hematuria. He likely will need to have further workup of this. No changes anticoagulation was started. Although his V/Q scan was intermittent probability, due to his hematuria we did not start him on any type of anticoagulation as his symptoms have completely resolved and he is feeling completely back to his normal status. He will be discharged home on Medrol Dosepak and Levaquin. He will follow up with Dr. Michelle in 1-2 weeks. TIME SPENT: Greater than 35 minutes was spent in discharge planning and instructions. cc: Zoran Garcia MD
[2016-11-04 08:00] LABS: ALLEN TEST YES
== END 2016-11-02 13:10 | disposition home or self-care (01) ==
LOC: P.ED 08:34 → P.MEDSURG 08:35
PROVIDERS: ATTEND Internal Medicine

== ENCOUNTER 2017-01-27 19:20 | Inpatient (IN) ==
--- NOTE | 2017-01-27 20:06 | Diag Imaging Result Doc PS360 ---
EXAM: XRAY PELVIS W/HIP 2-3VW LT INDICATION: fall TECHNIQUE: 3 views COMPARISON: None. FINDINGS: There is an acute subcapital fracture involving the left femoral neck with impaction and a small displaced fracture fragment at the inferior aspect of the femoral neck. No other definite acute fractures are appreciated. An aortoiliac stent graft is in place. Surrounding soft tissues are essentially unremarkable, otherwise. IMPRESSION: Fracture of the left femoral neck as described. Electronically signed by Pedrito Danielson 01/27/2017 8:03 PM
[2017-01-27 20:29] LABS: MANUAL DIFF NEEDED? NO
[2017-01-27 20:37] LABS: BASO% 0.5 % (0.0-0.8); EOS# 0.27 X1000 (0.0-0.7); EOS% 3.4 % (0.0-10.0); HEMATOCRIT 39.3 % (42.0-52.0); HEMOGLOBIN 13.4 g/dL (14.0-18.0); IMM GRAN# 0.03 X1000 (0.0-0.04); IMM GRAN% 0.4 % (0.0-0.5); LYMPH# 1.14 X1000 (1.2-3.4); LYMPH% 14.5 % (20.5-51.1); MCHC 34.1 g/dL (33-37); MCV 87.9 FL (81-99); MONO# 0.64 X1000 (0.11-0.59); MONO% 8.1 % (1.7-9.3); MPV 10.5 FL (7.4-10.4); NEUT% 73.1 % (42.2-75.2); PLT 215 X1000 (130-400); RBC 4.47 XMIL (4.7-6.1)
[2017-01-27 20:49] LABS: INR 0.93 (0.86-1.15); PROTIME 12.8 Seconds (12.1-15.5); PTT PL 31.5 Seconds (22.6-43.9)
[2017-01-27 20:53] LABS: ALBUMIN 3.8 g/dL (3.5-5.0); CALCIUM 8.9 mg/dL (8.8-10.2); POTASSIUM 3.8 mmol/L (3.5-5.1); TOTAL BILIRUBIN 0.4 mg/dL (0.20-1.00); TOTAL PROTEIN 6.3 g/dL (6.3-8.3)
[2017-01-27] MEDS ORDERED: SODIUM CHLORIDE 0.9% INJ ONE ×3 (20:53→21:15)
[2017-01-27] MEDS ORDERED: PHENERGAN IV ONE ×2 (20:53→21:04)
[2017-01-27] MEDS ORDERED: DEMEROL IV ONE ×2 (20:53→21:04)
--- NOTE | 2017-01-27 20:53 | EKG Report ---
Test Performed on : 01/27/2017 8:49:32 PM Test Reason : emboli Blood Pressure : / mmHG Vent. Rate : 075 BPM Atrial Rate : 075 BPM P-R Int : 198 ms QRS Dur : 112 ms QT Int : 412 ms P-R-T Axes : 084 -63 094 degrees QTc Int : 460 ms Normal sinus rhythm. Left axis deviation Pulmonary disease pattern Incomplete left bundle branch block Nonspecific ST and T wave abnormality Prolonged QT Abnormal ECG No previous ECGs available Unconfirmed Result
[2017-01-27] MEDS ORDERED: NS 1,000 ML IV ONE (20:56)
[2017-01-27] MEDS ORDERED: TYLENOL PO PRN (23:57)
[2017-01-27] MEDS ORDERED: ZOFRAN IV PRN (23:57)
[2017-01-27] MEDS ORDERED: NS 1,000 ML IV SCH (23:57)
[2017-01-28] MEDS ORDERED: MORPHINE IV ONE (00:04)
[2017-01-28] MEDS ORDERED: LOPRESSOR PO ONE (00:09)
[2017-01-28] MEDS ORDERED: ALBUTEROL NEB INH PRN (00:10)
--- NOTE | 2017-01-28 02:07 | HISTORY AND PHYSICAL ---
REASON FOR ADMISSION: Right hip pain. HISTORY OF PRESENT ILLNESS: Mr. Ching Salcido is an 82-year-old male with a past medical history of coronary artery disease status post CABG, peripheral arterial disease, status post AAA repair, COPD, diastolic heart failure, hypertension, hyperlipidemia. He also had a prior TIA in 1999. He comes in today after getting his sandal caught on some steps in his house, and falling and landing on his right hip. He tried to get up but noticed he was in excruciating pain. Called his , who got EMS to bring him in. X-rays have confirmed an impacted subcapital fracture involving the left femoral neck, and small displaced fracture fragments in the inferior aspect of the femoral neck. Case was discussed with Dr. Leon, who is going to see the patient tomorrow and decide on when to do surgery. Currently, the patient denies any contact of his head on falling, no antecedent cardiorespiratory complaints, or since the fall. His only complaint is that referable to only his left hip pain, which is nonradiating and aching and sharp in quality. REVIEW OF SYSTEMS: Notable for poor urinary stream and hesitancy. Other than that, he has no other acute complaints at this time. He does occasionally have occasional breathing difficulty on exertion related to COPD. ALLERGIES: Sulfa. SOCIAL HISTORY: Used to smoke several years ago, one pack a day. No illicit drug use or alcohol. Lives with his . PAST SURGICAL HISTORY: He has had a triple coronary bypass, AAA repair. He has stents in both legs for peripheral arterial disease. FAMILY HISTORY: Son had liver cancer. First-degree relatives with prostate cancer, MIs, leukemia, dementia, Parkinson's, and essential tremor. PAST MEDICAL HISTORY: See above, including hypertension and essential tremor. LABORATORY WORK: X-ray of the left hip per HPI. White count 7000, hemoglobin and hematocrit 13 and 39, platelets 215,000. Normal differential. BUN 17, creatinine 1.6. PT/PTT is normal. Chest film is essentially normal too, no acute process. This was reviewed by me. Other than having his chest film, also has findings consistent with COPD. PHYSICAL EXAMINATION: GENERAL: Elderly man who is in mild to moderate distress from his pain. VITAL SIGNS: Blood pressure is 168/81, heart rate 77, respirations 16, temperature 97.9. He is alert and oriented to person and time. Normal mood and affect. HEENT: Head is normocephalic, atraumatic. Eyes BRIDGET, EOMI. He is anicteric and not pale. ENT exam is grossly normal. NECK: Supple. No JVD or carotid bruit or thyromegaly. CHEST: Clear to auscultation. Good air entry in both lung whitney. CARDIOVASCULAR: First and second sounds heard. No gallops, murmurs, rubs. Rhythm is regular. ABDOMEN: Protuberant, soft, nontender. No mass or organomegaly. Bowel sounds hyperactive. RECTAL: Deferred at this time. EXTREMITIES: Patient's distal pulses in his lower extremities are barely palpable, but they are symmetrical. His feet are cool to touch bilaterally. Left lower extremity is slightly shorter than the right, and with external rotation. He has grade 1 clubbing in his fingers. No peripheral cyanosis noted. No edema. NEUROLOGICAL: Grossly normal. No focal deficits. The patient is able to wiggle both sets of toes. I was unable to do a thorough exam of his left lower extremity for obvious reasons. SKIN: Intact. No breakdown, lesions, or erythema. MUSCULOSKELETAL: Grossly normal, other than the findings noted above. ASSESSMENT: 1. Fall, with left hip fracture. 2. Peripheral arterial disease. 3. Coronary artery disease. 4. Hypertension. 5. Chronic obstructive pulmonary disease. 6. Congestive heart failure, query type. 7. Benign prostatic hypertrophy. PLAN: Patient will be seen by Dr. Leon in the morning. Patient's RCRI index is 6.6, moderate risk. We will consult Cardiology to see patient for preoperative management. Another issue is the patient is taking dual antiplatelet therapy, and this may increase the patient's perioperative risk for bleeding. We will wait at least 24 hours to let the effects of Plavix dwindle. However, we need to continue the aspirin throughout because of this patient's cardiovascular risk. We will treat patient symptomatically with opioids and antiemetics as needed. Caution needs to be employed in this patient to ensure he does not develop acute urinary retention, and stay away as much as possible from anticholinergics due to his underlying benign prostatic hypertrophy. Continue with statins. The patient's creatinine is 1.6. It is difficult to ascertain if this is acute or chronic. Will follow this closely. Hydrate patient cautiously. The patient does not strike me as having any evidence of congestive heart failure. He is not on any diuretics to begin with, which makes this diagnosis somewhat suspect. We will give him p.r.n. breathing treatments, preferably without any ipratropium, due to the fact he has underlying benign prostatic hypertrophy, and this may potentially worsening things. We are going to use albuterol for now. If the patient's surgery is going to be held for a day or 2, may consider giving the patient deep venous thrombosis coverage, but I will defer to Dr. Leon regarding this. cc: Quita Winter MD
[2017-01-28] MEDS: MORPHINE IV PRN ×2 (03:08→08:07)
[2017-01-28] MEDS: FLOMAX PO SCH ×2 (04:32→20:10)
[2017-01-28 06:11] LABS: MANUAL DIFF NEEDED? NO
[2017-01-28 06:15] LABS: BASO% 0.2 % (0.0-0.8); EOS# 0.09 X1000 (0.0-0.7); EOS% 0.8 % (0.0-10.0); HEMATOCRIT 37.1 % (42.0-52.0); IMM GRAN# 0.03 X1000 (0.0-0.04); IMM GRAN% 0.3 % (0.0-0.5); LYMPH# 0.91 X1000 (1.2-3.4); LYMPH% 8.6 % (20.5-51.1); MCV 88.5 FL (81-99); MONO# 0.94 X1000 (0.11-0.59); MONO% 8.8 % (1.7-9.3); MPV 10.5 FL (7.4-10.4); NEUT% 81.3 % (42.2-75.2); PLT 213 X1000 (130-400); RBC 4.19 XMIL (4.7-6.1)
[2017-01-28 06:35] LABS: CALCIUM 8.7 mg/dL (8.8-10.2); POTASSIUM 4.3 mmol/L (3.5-5.1)
--- NOTE | 2017-01-28 07:34 | Diag Imaging Result Doc PS360 ---
CHEST-PORTABLE - 01/27/2017 INDICATION: fx hip TECHNIQUE: COMPARISON: 10/31/2016 FINDINGS: Lungs are hyperexpanded compatible with COPD. Stable CABG changes. Heart size and pulmonary vascularity is grossly normal. No focal infiltrates, pneumothorax, or pleural effusion. IMPRESSION: COPD. No acute disease. Electronically signed by Keyshawn Lozoya 01/28/2017 7:31 AM
[2017-01-28] MEDS: TOPROL XL PO SCH (08:06)
[2017-01-28] MEDS: ASPIRIN PO SCH (08:31)
[2017-01-28] MEDS: MIRALAX PO SCH (08:32)
[2017-01-28] MEDS ORDERED: ASPIRIN PO SCH (09:00)
[2017-01-28] MEDS: SPIRIVA INH SCH (10:22)
[2017-01-28] MEDS: SYMBICORT 160/4.5 MICROGM INHALER INH SCH ×2 (10:37→19:15)
[2017-01-28] MEDS ORDERED: ROBINUL ONE (11:10)
[2017-01-28] MEDS ORDERED: NEO-SYNEPHRINE ONE (11:10)
[2017-01-28] MEDS ORDERED: SODIUM CHLORIDE 0.9% 20 ML ONE (11:10)
[2017-01-28] MEDS ORDERED: DIPRIVAN 1% ONE (11:39)
[2017-01-28] MEDS ORDERED: XYLOCAINE-MPF 2% ONE (11:42)
[2017-01-28] MEDS ORDERED: KEFZOL 2 GM/D5W 2 GM/50 ML IVPB ONE (11:52)
--- NOTE | 2017-01-28 12:53 | CONSULTATION ---
DATE OF CONSULTATION: 01/28/2017 ADMITTING PHYSICIAN: Quita Winter MD CONSULTING PHYSICIAN: Pedrito Leon MD CHIEF COMPLAINT: Left hip pain. HISTORY OF PRESENT ILLNESS: Mr. Salcido is an 82-year-old white male who has experienced left hip pain and inability to bear weight status post a mechanical fall at his home yesterday. He was brought to the emergency room via ambulance where radiographic evaluation of the left hip revealed findings consistent with a nondisplaced subcapital femur fracture. He denies any associated injuries, including head injury, loss of consciousness or changes in mental status. PRIMARY CARE PROVIDER: Pedrito Michelle MD ALLERGIES: Sulfa. PAST MEDICAL HISTORY: 1. Coronary artery disease. 2. Peripheral arterial disease. 3. Chronic obstructive pulmonary disorder. 4. Hypertension. 5. Hyperlipidemia. 6. Benign essential tremor. 7. History of transient ischemic attack. 8. Benign prostatic hypertrophy. PAST SURGICAL HISTORY: 1. Coronary artery bypass grafting. 2. Aortic abdominal aneurysm repair. 3. Bilateral stent placement in the lower extremities for peripheral arterial disease. SOCIAL HISTORY: The patient is a remote smoker. He is . He maintains a home with his . CURRENT MEDICATIONS: 1. Colace 200 mg by mouth daily. 2. Symbicort 160-4.5 mcg inhaler twice daily. 3. Aspirin 81 mg daily. 4. Famotidine 40 mg twice daily. 5. Plavix 75 mg daily. 6. Norvasc 2.5 mg by mouth twice daily. 7. Astepro nasal spray, 2 sprays inhaled daily. 8. Ipratropium bromide 450 mL by mouth 3 times a day. 9. DuoNeb 3 mL inhaler, take as directed. 10. Spiriva 1 puff daily. 11. Flomax 0.4 mg daily. 12. Lipitor 10 mg at bedtime. 13. Micardis 80 mg daily. 14. Metoprolol 50 mg by mouth twice daily. REVIEW OF SYSTEMS: General: Mr. Salcido has a history of a remote transient ischemic attack. He suffers no residual deficits from that event. Denies any recent dizzy spells or syncopal events. Cardiac: The patient has a history of longstanding coronary artery disease, having previously underwent a coronary artery bypass graft. He also has a history of hypertension. Pulmonary: The patient is a longstanding remote smoker and has a history of chronic obstructive pulmonary disease. Gastrointestinal: No recent nausea, vomiting, diarrhea, or constipation. Denies recent weight loss or weight gain. Genitourinary: He is treated for benign prostatic hypertrophy. Neurological: Denies any extremity radicular pain, weakness or paresthesia. Musculoskeletal: He is here today for a left hip fracture status post mechanical fall. Other: He is treated for peripheral arterial disease, hypertension and tremors. PHYSICAL EXAMINATION: General: The patient is resting comfortably in bed. He has family at bedside. He is articulate and able answer all questions fully. HEENT: Head is normocephalic, atraumatic. Pupils are equal, round, react to light. Nares are patent. Neck: Supple. Heart: Regular rate and rhythm. He has distant heart sounds, presumably secondary to his previous bypass surgery. Pulmonary: The patient's lungs are clear. Gastrointestinal: Abdominal sounds are present. His abdomen is round. His belly is nontender. Genitourinary: Not examined. Neurological: Gross motor function is intact. Musculoskeletal: Left hip: No gross deformity, edema or ecchymosis is noted. I was unable to palpate a distal pulse, but his feet are warm and dry and his capillary refill is 2 seconds bilaterally. Other: He has recently been treated for a right great toe infection. His right great toe is somewhat erythematous but has good capillary refill. IMPRESSION: Left subcapital femur fracture. PLAN: Left hip closed reduction, percutaneous pinning. The risks and benefits of surgery were explained to the patient, including the risk of anesthesia, , bleeding, infection, damage to tendons, ligaments, blood vessels, the possibility of blood clots and other imponderables were discussed, and he wishes to proceed with operative management at this time. Dictated by ILANA Segovia for Pedrito Leon MD cc: ILANA Segovia MD [facility]
--- NOTE | 2017-01-28 14:26 | OPERATIVE NOTE ---
PROCEDURE DATE: PREOP DIAGNOSIS: Impacted left femoral neck fracture. POSTOP DIAGNOSIS: Impacted left femoral neck fracture. PROCEDURE: Closed reduction, percutaneous pinning left femoral neck fracture. SURGEON: Catalino Leon MD. PRISON PSYCHIATRIST: Arden Mckinney. ANESTHESIA: General. COMPLICATION: None. PROCEDURE IN DETAIL: This 82-year-old male presents for right surgical fixation left hip. Risks, benefits and no guarantees were discussed and he is willing to proceed. He was taken to the operating room and satisfactory anesthesia obtained. He was placed on the fracture table and left hip prepped and draped in usual sterile fashion. A time-out was taken to confirm operative site, procedure, and patient. The C-arm was used to verify the left femoral neck fracture. This was impacted and noted to have relatively good alignment however mild internal rotation of the hip near anatomically reduced the fracture. With the hip prepped and draped the C-arm was used to ary the lateral aspect of the thigh and incision made at the level of lesser trochanter. A 1- inch incision was made. Dissection carried down the lateral cortex of the proximal femur. Under multiplanar image guidance, three 7.3 cannulated screws guidewires were placed across the lateral aspect of the femur up the central aspect of the femoral neck and then the femoral head. Care was taken to avoid anterior-superior placement as well as articular penetration. Three 105 length cannulated screws were then placed with secure fixation in the femoral head. The guidewire was removed. Hip fracture was then taken through live fluoro range of motion without any instability. No prominence of the hardware was noted. The wound was irrigated and closed in layers with 2-0 Vicryl and skin sarthak. Sterile dressings completed the closure and the patient was recovered from anesthesia and transferred to the recovery room in stable condition. No intraoperative complications were noted. Instrument count and sponge count was correct at the time of closure. cc: Pedrito Leon MD
[2017-01-28] MEDS ORDERED: NS 1,000 ML IV SCH (14:58)
[2017-01-28] MEDS ORDERED: ZOFRAN IV PRN (14:58)
[2017-01-28] MEDS ORDERED: MORPHINE IV PRN (14:58)
[2017-01-28] MEDS ORDERED: HALDOL IV PRN (14:58)
[2017-01-28] MEDS ORDERED: MILK OF MAGNESIA PO PRN (14:58)
--- NOTE | 2017-01-28 15:41 | PROGRESS NOTE ---
DATE: 01/28/2017 SUBJECTIVE: This patient just came back from left hip surgery. He is answering all my questions. As per the , this patient is a little bit confused. He is alert and oriented x3 for me. He moves all 4 extremities OBJECTIVE: Vital Signs: Temperature 97.8 degrees, pulse 79, respiratory rate 19, blood pressure 153/79, oxygen saturation 96 on room air. HEENT: Head normocephalic. No trauma. PERRLA. Neck: Supple. No JVD. No masses. Central trachea. Chest: Clear to auscultation. No wheezing. No rales. Abdomen: Soft, nontender, nondistended. No hepatosplenomegaly. Extremities: The left hip with a new dressing, no signs of bleed or infection. Left extremity without any signs of ischemia. He is moving his toes and the rest of the lower extremity. Neurological: The patient is alert and oriented x3. Mild, somnolent. He moves all 4 extremities. No focal neurological deficits. LABORATORY: WBC 10.6, hemoglobin 13, hematocrit 37.1, platelets 213. Sodium 141, potassium 4.3, chloride 103, bicarbonate 27, BUN 14, creatinine 1.5, glucose 116, calcium 8.7. ASSESSMENT AND PLAN: 1. Left femoral neck fracture, status post closed reduction, percutaneous pinning, left femoral neck fracture. Orthopedic surgery on board. We will continue following their recommendations. 2. Peripheral artery disease. Aware. He has been chronically on aspirin and also he has been on Plavix. I will continue those medications. 3. History of coronary artery disease. I restarted already his Plavix. He is on aspirin as well. He is not complaining at this moment. No chest pain or shortness of breath. 4. Hypertension. I restarted also his home medication. Will monitor. 5. Chronic obstructive pulmonary disease. He has been on nebulizers at home. I restarted this treatment already. 6. History of congestive heart failure. He has no complaint of shortness of breath. Lungs are clear. Will continue to monitor. 7. Benign prostatic hyperplasia, aware. cc: Phani Zimmerman MD
[2017-01-28] MEDS: TYLENOL PO SCH ×2 (16:24→20:10)
[2017-01-28] MEDS: OXY IR PO PRN ×2 (18:40→22:12)
[2017-01-28] MEDS ORDERED: KEFZOL 1 GM/D5W 1 GM/50 ML IVPB IV SCH (20:00)
[2017-01-28] MEDS: KEFZOL 2 GM/D5W 2 GM/50 ML IVPB IV SCH (20:08)
[2017-01-28] MEDS: PERIDEX MT SCH (20:09)
[2017-01-28] MEDS: LIPITOR PO SCH (20:09)
[2017-01-28] MEDS: COLACE PO SCH (20:09)
[2017-01-28] MEDS: HEPARIN SUBQ SCH (20:09)
[2017-01-28] MEDS: NORVASC PO SCH (20:10)
[2017-01-28] MEDS ORDERED: TOPROL XL PO SCH (21:00)
[2017-01-29] MEDS: TYLENOL PO SCH ×3 (03:53→18:39)
[2017-01-29] MEDS: OXY IR PO PRN ×5 (03:53→21:18)
[2017-01-29] MEDS: KEFZOL 2 GM/D5W 2 GM/50 ML IVPB IV SCH (03:53)
[2017-01-29 05:45] LABS: MANUAL DIFF NEEDED? NO
[2017-01-29 06:19] LABS: BASO% 0.4 % (0.0-0.8); EOS# 0.33 X1000 (0.0-0.7); HEMATOCRIT 33.7 % (42.0-52.0); HEMOGLOBIN 11.3 g/dL (14.0-18.0); LYMPH# 1.16 X1000 (1.2-3.4); MCHC 33.5 g/dL (33-37); MCV 92.3 FL (81-99); MONO# 0.92 X1000 (0.11-0.59); MONO% 11.1 % (1.7-9.3); MPV 10.8 FL (7.4-10.4); NEUT% 70.5 % (42.2-75.2); PLT 176 X1000 (130-400); RBC 3.65 XMIL (4.7-6.1)
[2017-01-29 06:50] LABS: CALCIUM 7.9 mg/dL (8.8-10.2); POTASSIUM 4.4 mmol/L (3.5-5.1)
[2017-01-29] MEDS: FERROUS SULFATE PO SCH (07:45)
[2017-01-29] MEDS: NORVASC PO SCH ×2 (07:45→21:18)
[2017-01-29] MEDS: ASPIRIN PO SCH ×2 (07:46→12:41)
[2017-01-29] MEDS: PERIDEX MT SCH ×3 (07:46→21:18)
[2017-01-29] MEDS: MICARDIS PO SCH ×2 (07:46→12:40)
[2017-01-29] MEDS: PLAVIX PO SCH ×2 (07:46→12:40)
[2017-01-29] MEDS: MIRALAX PO SCH ×2 (07:46→12:40)
[2017-01-29] MEDS: TOPROL XL PO SCH ×2 (07:46→12:39)
[2017-01-29] MEDS: HEPARIN SUBQ SCH ×3 (07:47→21:17)
[2017-01-29] MEDS: SYMBICORT 160/4.5 MICROGM INHALER INH SCH ×2 (07:54→23:52)
[2017-01-29] MEDS: SPIRIVA INH SCH (07:54)
--- NOTE | 2017-01-29 08:46 | PROGRESS NOTE ---
DATE: 01/29/2017 SUBJECTIVE DATA: Mr. Salcido is laying in the bed in no acute distress. He complains of some pain to his left hip when he attempts to move it, otherwise he is doing well. He has no other complaints at the present. OBJECTIVE DATA: Left lower extremity is warm with good color. The incision has no erythema or drainage surrounding it. It is well approximated. He has a good pedal and tibial pulse. He has good sensation to his lower extremities. He has good cap refill. He is slightly externally rotated. He can raise his leg up without resistance. ASSESSMENT: Status post impacted left femoral neck fracture, status post closed reduction percutaneous pinning of the left femoral neck. PLAN: I think Mr. Salcido is doing really well. He is in good spirits and his incision looks great. PLAN: Will be for him to start physical therapy. We will let the hospitalist address his anticoagulation and we will see him tomorrow. Dictated by SHANIA Sam for Pedrito Leon MD cc: SHANIA Sam MD
[2017-01-29] MEDS ORDERED: FLOMAX PO SCH (09:00)
[2017-01-29] MEDS ORDERED: COLACE PO SCH (09:00)
--- NOTE | 2017-01-29 11:15 | PROGRESS NOTE ---
DATE: 01/29/2017 SUBJECTIVE: This patient looks much better today. He is completely alert and oriented x3. He is not confused. Family members are at the bedside, his . He is able to move all 4 extremities. Mild pain at the level of the left hip. OBJECTIVE: Vital Signs: Temperature 97.7 degrees, pulse 72, respiratory rate 18, blood pressure 151/57, oxygen saturation 98 on 2L nasal cannula. HEENT: Head normocephalic. No trauma. PERRLA. Neck: Supple. No JVD. No masses. Central trachea. Chest: Clear to auscultation. No wheezing. No rales. Abdomen: Soft, nontender, nondistended. No hepatosplenomegaly. Extremities: Left hip with a new dressing. No sign of bleed or infection. Left lower extremity without any sign of ischemia. He is moving his toes and the rest of the lower extremity. Neurologic: The patient is alert and oriented x3. He moves all 4 extremities. No focal neurological deficits. LABORATORY: WBC 8.3, hemoglobin 11.3, hematocrit 33.7, platelets 176,000. Sodium 140, potassium 4.4, chloride 104, bicarbonate 25, BUN 13, creatinine 1.5, glucose 97, calcium 7.9. ASSESSMENT AND PLAN: 1. Left femoral neck fracture, status post closed reduction, percutaneous pinning, left femoral neck fracture. Orthopedic Surgery is on board. For now, we will go ahead and start physical therapy on this patient. 2. Peripheral artery disease. Aware. He has been chronically on aspirin and also he has been on Plavix. I already continued those medications. 3. History of coronary artery disease. Continue with aspirin and Plavix. No chest pain or shortness of breath at this moment. 4. Hypertension. Yesterday, I restarted all his home medication. I will increase the amlodipine from 2.5 mg twice a day to 5 mg twice a day. 5. Chronic obstructive pulmonary disease. He has been on nebulizers at home and I restarted this treatment already. 6. History of congestive heart failure. He is not complaining of shortness of breath. Lungs are clear. Continue to monitor. 7. Benign prostatic hypertrophy. Aware. cc: Phani Zimmerman MD
[2017-01-29] MEDS: COLACE PO SCH (21:18)
[2017-01-29] MEDS: LIPITOR PO SCH (21:18)
[2017-01-29] MEDS: FLOMAX PO SCH (21:19)
[2017-01-30] MEDS: TYLENOL PO SCH ×2 (03:18→11:37)
[2017-01-30 07:39] VITALS: BP 178/66
[2017-01-30] MEDS: SYMBICORT 160/4.5 MICROGM INHALER INH SCH ×2 (08:25→08:28)
[2017-01-30] MEDS: SPIRIVA INH SCH ×2 (08:25→08:27)
[2017-01-30] MEDS ORDERED: APRESOLINE PO SCH (09:00)
[2017-01-30] MEDS: FERROUS SULFATE PO SCH (10:35)
[2017-01-30] MEDS: OXY IR PO PRN (10:35)
[2017-01-30] MEDS: PERIDEX MT SCH (10:36)
[2017-01-30] MEDS: NORVASC PO SCH (10:36)
[2017-01-30] MEDS: MICARDIS PO SCH (10:36)
[2017-01-30] MEDS: MIRALAX PO SCH (10:36)
[2017-01-30] MEDS: PLAVIX PO SCH (10:36)
[2017-01-30] MEDS: TOPROL XL PO SCH (10:36)
[2017-01-30] MEDS: ASPIRIN PO SCH (10:38)
[2017-01-30] MEDS ORDERED: ELIQUIS PO SCH ×2 (10:49→21:00)
--- NOTE | 2017-01-30 17:56 | DISCHARGE SUMMARY ---
ADMISSION DATE: 01/27/2017 DISCHARGE DATE: 01/30/2017 ADMISSION DIAGNOSES: 1. Fall with left hip fracture. 2. Peripheral artery disease. 3. Coronary artery disease. 4. Hypertension. 5. Chronic obstructive pulmonary disease no exacerbation. 6. Chronic Diastolic Congestive heart failure. 7. Benign prostatic hypertrophy. DISCHARGE DIAGNOSES: 1. Left femoral neck fracture status post closed reduction with percutaneous pinning. 2. Peripheral artery disease. 3. Coronary artery disease. 4. Chronic obstructive pulmonary disease. 5. Chronic Diastolic Dysfunction. 6. Benign prostatic hypertrophy. PROCEDURES: On 01/28/2017, Dr. Leon performed a closed reduction with percutaneous pinning to the left femoral neck fracture. CONSULTATIONS: 1. Dr. Leon for surgery. 2. Dr. Downing for preoperative evaluation. HOSPITAL COURSE: Mr. Salcido is an 82-year-old male with a past medical history of CAD post CABG, PAD, status post AAA repair, COPD, diastolic heart failure, hypertension, hyperlipidemia, TIA. He presented to the ED on 01/23/2017 with complaints of left hip pain post fall. He said he caught his sandal on some steps and tripped and fell. X-rays confirmed an impacted subcapital fracture involving the left femoral neck and small displaced fracture fragments in the inferior aspect of the femoral neck. He went for surgery on and had a closed reduction with percutaneous pinning of his left femoral neck fracture which was performed by Dr. Leon. He tolerated the procedure well with no complications. No major events during hospital stay. Vital signs and labs remained stable. DISCHARGE VITAL SIGNS: Vital signs on 01/30 were 98.5 temperature, 92 heart rate, respiratory rate is 18, blood pressure 178/66, O2 saturation 97% on room air. DISCHARGE LABS: wbc 8,000; hgb 11; hct 33; plt 176; sodium 140; potassium 4.4; bun 13; creatinine 1.5; glucose 97; calcium 7.9 IMAGING STUDIES: On 01/27/2017, he had x-ray of hip and pelvis which revealed acute subcapital fracture involving the left femoral neck with impaction and small displaced fracture fragments at the inferior aspect of the femoral neck. Also on 01/27/2017, he had a chest x- ray which revealed high-expanded lungs compatible with COPD. Heart size and pulmonary valve vascularity is normal, no acute disease. DISCHARGE MEDICATIONS: Albuterol 3 mL p.o. daily inhaled, Lipitor 10 p.o. at night. Flomax 0.4 mg p.o., Micardis 80 mg p.o. Metoprolol 50 mg p.o. b.i.d. and ipratropium bromide inhaler 3 times a day. Astepro nasal spray 2 inhalations daily, Spiriva 1 puff inhaler daily. Norvasc 2.5 mg p.o. b.i.d., Pepcid 40 mg p.o. b.i.d., aspirin 81 mg p.o. daily. Symbicort inhaler b.i.d. Plavix 75 mg p.o. daily. Colace 200 mg p.o. daily. Ferrous sulfate 325 mg p.o. daily, hydralazine 25 p.o. t.i.d., oxycodone 5 mg p.o. q.3 hours p.r.n., Eliquis 2.5 mg p.o. b.i.d. DISCHARGE DIET: Heart healthy. DISCHARGE WOUND CARE: The patient is allowed to shower on FridayFebruary 01 and use antibacterial soap of his choice, suggested Dial soap. DISCHARGE ACTIVITY: Physical therapy as tolerated. No driving until directed by MD. DISPOSITION: Discharge home with [facility]. DISCHARGE INSTRUCTIONS: Wound care as directed and follow up with Dr. Leon in 2-3 weeks. Dictated by SHANIA Harmon for Phani Zimmerman MD cc: SHANIA Harmon MD [facility]
--- NOTE | 2017-02-17 19:57 | PROVIDER DOCUMENTATION ---
This chart was entered by Olivia Marie Scribe, acting as scribe for Jimmy Moses MD. HPI-Musculoskeletal Pain/Inj - GENERAL Chief Complaint: Hip Pain Stated Complaint: hip Time Seen by Provider: 01/27/17 19:26 Source: patient - HX OF PRESENT ILLNESS-MUSKULOSKELTAL Nature of Presenting Problem: 82 Y/O M presents to ED with Extremity Pain. Pt states that he was walking up the stairs stumbled and fell on his left side. States fell sideways and landed on his left hip. Pt states that he doesn't have pain when laying still, but when you push on his left side pelvis he has pain. Quality of Pain: reports: aching Severity in ED: moderate Onset/Duration: this evening Timing: still present Any recent injury?: No Locality of Occurance: Home Similar Symptoms Previously?: No Recently seen or treated by another doctor?: No - FALL INJURY Location of Pain/Injury: reports: pelvis (hip) Pain Radiation: reports: no radiation Reason for Fall: reports: other (stumbled) Symptoms prior to fall:: reports: none Loss of Consciousness: no loss of consciousness Injury Associated Symptoms: reports: joint pain, trouble walking. denies: dizziness, headaches, puncture wound, shortness of breath - HIP/PELVIS PAIN/INJURY Hip Pain Location: reports: hip (L), pelvis Pain Radiation: reports: no radiation Context / Method of Injury: reports: fall Associated Symptoms: reports: denies symptoms - LOWER EXTREMITY PAIN/INJURY Lower Extremities Pain: hip: left Context / Method of Injury: reports: fell Associated Symptoms: reports: denies symptoms Review of Systems - Adult - REVIEW OF SYSTEMS - ADULT Constitutional: denies: chills, fever Eyes: reports: no symptoms reported Ears, Nose, Mouth & Throat: reports: no symptoms reported Cardiovascular: reports: no symptoms reported Respiratory: reports: no symptoms reported Gastrointestinal: reports: no symptoms reported Genitourinary: reports: no symptoms reported Musculoskeletal: reports: joint pain. denies: bone pain Integumentary: reports: no symptoms reported Neurological: reports: no symptoms reported Psychiatric: reports: no symptoms reported Endocrine: reports: no symptoms reported Hematologic/Lymphatic: reports: no symptoms reported Allergic/Immunologic: reports: no symptoms reported All Other Systems: Reviewed and Negative Past History - Adult - PAST MEDICAL HISTORY-ADULT Review of Records: reports: Old Records Reviewed, Nursing Assessment Review, Medications Reviewed, Social history reviewed & non-contributory. Major Childhood Illnesses: reports: denies history Cardiovascular: reports: CHF, HTN, hyperlipidemia Respiratory: reports: COPD Neurological: reports: TIA - PRIOR SURGERIES/PROCEDURES Surgical/Procedure History: reports: reviewed, not pertinent, other (triple bypass;AAA) - IMMUNIZATION STATUS Childhood Immunizations: See Nurse Assessment Flu Vaccine: See Nurse Assessment Physical Exam-Injury Related - Physical Exam-Injury Related General Appearance: alert, no apparent distress Eyes: PERRL/EOMI, pink conjunctivae Head, Ears, Nose, Mouth & Throat: normocephalic/atraumatic, moist mucous membranes, normal ENT inspection, TMs normal, pharynx normal Neck: full range of motion, supple, normal inspection Respiratory: lungs clear, normal breath sounds Cardiovascular: regular rate, rhythm Abdominal Exam: non tender, soft Extremity: tenderness, other (shortened left leg noted). negative: normal gait Integumentary: normal color, warm/dry Psych/Mental Status: normal mood/affect, normal thought content, normal thought process, oriented x 3 - Glascow Coma Score Best Eye Response (Osvaldo): (4) open spontaneously Best Verbal Response (Osvaldo): (5) oriented Best Motor Response (Osvaldo): (6) obeys commands Osvaldo Total: 15 Progress - PLAN OF CARE/RESULTS Progress/Plan/Lab Results: Orders Category Date Time Status Activity - Strict Bedrest ORDERED Care 01/27/17 21:02 Inactive Vital Signs Order Q 4-HR ASSESS Care 01/27/17 20:56 Inactive Z-Document. for Tele Applied ORDERED Care 01/27/17 21:01 Inactive CHEST-PORTABLE [RAD] Stat Exams 01/27/17 20:30 Completed XRAY PELVIS W/HIP 2-3VW LT [RAD] Stat Exams 01/27/17 19:27 Completed CBC WITH DIFF [HEME] Stat Lab 01/27/17 20:15 Completed COMPREHENSIVE METABOLIC PANEL [CHEM] Stat Lab 01/27/17 20:15 Completed PT [PROTIME WITH INR PL] [COAG] Stat Lab 01/27/17 20:[address] [COAG] Stat Lab 01/27/17 20:15 Completed 0.9% Sodium Chloride Inj [Ns] 1,000 ml Med 01/27/17 20:56 Discontinued IV 100 mls/hr Meperidine [Demerol] Med 01/27/17 20:53 Discontinued 25 mg IV NOW ONE Meperidine [Demerol] Med 01/27/17 21:04 Discontinued 25 mg IV NOW ONE Promethazine [Phenergan] Med 01/27/17 20:53 Discontinued 12.5 mg IV NOW ONE Promethazine [Phenergan] Med 01/27/17 21:04 Discontinued 12.5 mg IV NOW ONE Sodium Chloride 0.9% Med 01/27/17 20:53 Discontinued 10 ml INJ NOW ONE Sodium Chloride 0.9% Med 01/27/17 21:04 Discontinued 10 ml INJ NOW ONE Sodium Chloride 0.9% Med 01/27/17 21:15 Discontinued 10 ml INJ ONCE ONE EKG [EKG] Routine Ther 01/27/17 20:30 Draft Result Diagrams: 01/29/17 05:25 01/29/17 05:25 - XRAY 1 XRAY Study: Pelvis, Hip Impression: Abnormal XRAY Interpretation: fx of the left femoral neck - CONSULTS/PCP/HOSPITALIST Notification #1 *Consult/PCP/Hospitalist*: Time Discussed: 20:45 Reason/Comments: Plan of Care Consult Disposition: Will see in ED ([facility]) #2 Consult: Dr.Penot Saul Discussed: 21:17 Reason/Comments: Admit Consult Disposition: Admit (Admit Accepted, Transfer in the morning) Departure - Departure Date of Disposition Decision: 01/27/17 Time of Disposition Decision: 19:45 DIAGNOSIS: Broken hip Qualifiers: Encounter type: initial encounter Fracture type: closed Laterality: left Qualified Code(s): S72.002A - Fracture of unspecified part of neck of left femur , initial encounter for closed fracture Disposition: ADMITTED INPATIENT 09 Certified Medical Emergency: Emergent Condition: Stable - Critical Care Note This patient required my direct & personal management of CC.: No This chart was documented by the indicated scribe, (Olivia Marie Scribe) and accurately reflects the services I performed and decisions made by me, Jimmy Moses MD, as attested by the provider's signature.
== END 2017-01-30 12:46 | disposition home health service (06) ==
LOC: P.ED 19:20 → 4N 21:46 → SUATTDRO 21:46 → 4N 22:18
PROVIDERS: ATTEND Internal Medicine

== ENCOUNTER 2017-02-05 11:03 | Inpatient (IN) ==
[2017-02-05 12:04] LABS: BASO% 0.5 % (0.0-0.8); EOS# 0.17 X1000 (0.0-0.7); EOS% 0.8 % (0.0-10.0); HEMATOCRIT 18.7 % (42.0-52.0); IMM GRAN# 0.31 X1000 (0.0-0.04); IMM GRAN% 1.5 % (0.0-0.5); LYMPH# 3.07 X1000 (1.2-3.4); LYMPH% 15.1 % (20.5-51.1); MANUAL DIFF NEEDED? NO; MCH 30.2 PG (27-31); MCHC 32.1 g/dL (33-37); MONO# 1.94 X1000 (0.11-0.59); MONO% 9.5 % (1.7-9.3); MPV 10.5 FL (7.4-10.4); NEUT% 72.6 % (42.2-75.2); PLT 563 X1000 (130-400); RBC 1.99 XMIL (4.7-6.1)
[2017-02-05 12:08] LABS: INR 1.04; PROTIME 10.9 Seconds (9.2-11.7); PTT 21.7 Seconds (22.0-36.0)
[2017-02-05 12:18] LABS: ALBUMIN 3.3 g/dL (3.5-5.0); CALCIUM 10.1 mg/dL (8.8-10.2); MAGNESIUM 2.1 mg/dL (1.5-2.7); POTASSIUM 4.8 mmol/L (3.5-5.1); TOTAL BILIRUBIN 0.61 mg/dL (0.20-1.00); TOTAL PROTEIN 5.6 g/dL (6.3-8.3)
--- NOTE | 2017-02-05 12:28 | Diag Imaging Result Doc PS360 ---
EXAM: CHEST-2 VIEWS INDICATION: CP TECHNIQUE: 2 views COMPARISON: 01/27/2017 FINDINGS: The lungs are hyperinflated, stable. The lungs are grossly clear. There is no discrete pleural fluid collection or pneumothorax. There are stable CABG changes. Cardiomediastinal silhouette and central vasculature are grossly unremarkable, otherwise. IMPRESSION: Stable COPD changes. No definite acute pathology. Electronically signed by Pedrito Danielson 02/05/2017 12:26 PM
--- NOTE | 2017-02-05 15:30 | Diag Imaging Result Doc PS360 ---
LUNG SCAN / VQ - 02/05/2017 INDICATION: short of breath TECHNIQUE: 39 mCi of DTPA was used for inhalation. 6.1 mCi of MAA was used for injection. COMPARISON: Chest x-rays including 02/05/2017 FINDINGS: There is severely heterogeneous pattern of the inhaled radiotracer indicating severe COPD. This is also the case on the chest x-ray. On the perfusion portion, there are large triple matching defects at the lung apices bilaterally right greater than left. These are compatible with large emphysematous bullae. There is no mismatched perfusion defect. IMPRESSION: Advanced bullous COPD. Low probability for pulmonary embolism. Electronically signed by Keyshawn Lozoya 02/05/2017 3:27 PM
[2017-02-05 16:27] LABS: URINE CULTURE NEEDED? NO; URINE MICRO REVIEW NEEDED? NO; URINE SOURCE CLEAN CATCH
[2017-02-05 16:31] LABS: BILIRUBIN URINE NEGATIVE (NEGATIVE); BLOOD URINE NEGATIVE (NEGATIVE); COLOR YELLOW; GLUCOSE URINE NEGATIVE (NEGATIVE); LEUKOCYTES URINE NEGATIVE (NEGATIVE); NITRITE URINE NEGATIVE (NEGATIVE); PROTEIN URINE NEGATIVE (NEGATIVE); SP GRAVITY URINE 1.019; TURBIDITY URINE CLEAR (CLEAR); UROBILINOGEN URINE NORMAL (NORMAL)
[2017-02-05 16:32] LABS: UR EPITHELIAL CELLS <10 /HPF (<10); URINE BACTERIA NEGATIVE /HPF; URINE RBC <10 /HPF (<10); URINE WBC <10 /HPF (<10)
--- NOTE | 2017-02-05 16:39 | PROVIDER DOCUMENTATION ---
This chart was entered by Jared Devries Scribe, acting as scribe for Tahir Davalos MD. HPI-Respiratory General - General Chief Complaint: Shortness of Breath Stated Complaint: SOB Time Seen by Provider: 02/05/17 12:46 Source: patient Allergies/Adverse Reactions: Patient Allergies Allergy/AdvReac Type Severity Reaction Status Date / Time Sulfa (Sulfonamide Allergy HIVES Verified 02/05/17 15:23 Antibiotics) Home Medications: Home Medication List Medication Instructions Recorded Confirmed Last Taken Type ATORVAstatin [Lipitor] 10 mg PO HS 06/26/15 02/05/17 02/04/17 History Albuterol 2.5MG/Ipratrop 0.5MG 3 ml PO DAILY 06/26/15 02/05/17 02/04/17 History [Duoneb (A & A)] Ipratropium [place] 450 ml PO TID 06/26/15 02/05/17 02/04/17 History Metoprolol Succinate [Toprol Xl] 50 mg PO BID 06/26/15 02/05/17 02/04/17 History Tamsulosin [Flomax] 0.4 mg PO DAILY 06/26/15 02/05/17 02/04/17 History Telmisartan [Micardis] 80 mg PO DAILY 06/26/15 02/05/17 02/04/17 History Azelastine 205.5 Mcg Nasal Spr 2 spray INH DAILY 10/31/16 02/05/17 02/04/17 History [Astepro Nasal [place]] Tiotropium [place] Inhaler 1 puff INH DAILY 10/31/16 02/05/17 02/04/17 History [Spiriva] Amlodipine [Norvasc] 2.5 mg PO BID 01/28/17 02/05/17 02/04/17 History Aspirin [Aspir-Low] 81 mg PO DAILY 01/28/17 02/05/17 02/04/17 History Budesonide/Formoterol Fumarate 10.2 inhaler IH BID 01/28/17 02/05/17 02/04/17 History [Symbicort 160-4.5 Mcg Inhaler] Clopidogrel Bisulfate [Plavix] 75 mg PO DAILY 01/28/17 02/05/17 02/04/17 History Docusate Sodium [Colace] 200 mg PO DAILY 01/28/17 02/05/17 02/04/17 History Famotidine 40 mg PO BID 01/28/17 02/05/17 02/04/17 History Apixaban [Eliquis] 2.5 mg PO BID #14 tablet 01/30/17 02/05/17 02/04/17 Rx Aspirin 81 mg PO DAILY chewtab 01/30/17 02/05/17 02/04/17 Rx Docusate Sodium [Colace] 200 mg PO QHS capsule 01/30/17 02/05/17 02/04/17 Rx Ferrous Sulfate 325 mg PO WBREAKFAST #60 tablet 01/30/17 02/05/17 02/04/17 Rx Hydralazine [Apresoline] 25 mg PO TID #90 tablet 01/30/17 02/05/17 02/04/17 Rx Oxycodone I.r. [Oxy Ir] 5 mg PO Q3H PRN PRN #20 capsule 01/30/17 02/05/17 Rx Tamsulosin [Flomax] 0.4 mg PO QHS capsule 01/30/17 02/05/17 02/04/17 Rx - History of Present Illness-Resp Nature of Presenting Problem: Patient is a 82 y/o M that presents to the ER with 24 hours of shortness of breath and weakness. Reports attempting to try breathing treatments at home with no relief of symptoms. History of COPD, had recent hip surgery. Denies fever/chills, n/v/d, chest pain, or rectal bleeding Quality of Pain: reports: tightness Severity in ED: reports: moderate, severe Onset/Duration: reports: gradual, 24 hours ago Timing: reports: still present, getting worse Context: reports: other ([employer] surgery). denies: out of meds, sports/exercise Episode Frequency: frequent episodes Current Respiratory Medication Therapy: Initiated see nurses note Modifying Factors: worse with: exertion, coughing Associated Symptoms: reports: cough, shortness of breath, short of breath, other (weakness). denies: fever/chills, flu-like symptoms, headache, nasal congestion, nasal drainage, wheezing Similar Symptoms Previously?: No Recently seen or treated by another doctor?: Yes Review of Systems - Adult - REVIEW OF SYSTEMS - ADULT Constitutional: denies: chills, fever Eyes: reports: no symptoms reported Ears, Nose, Mouth & Throat: reports: no symptoms reported Cardiovascular: denies: chest pain, palpitations, syncope Respiratory: reports: shortness of breath. denies: cough Gastrointestinal: denies: abdominal pain, nausea, vomiting Genitourinary: reports: no symptoms reported Musculoskeletal: reports: muscle weakness. denies: joint pain, joint swelling Integumentary: reports: no symptoms reported Neurological: denies: dizziness/vertigo, headache/migraines, seizure Psychiatric: reports: no symptoms reported Endocrine: reports: no symptoms reported Hematologic/Lymphatic: reports: no symptoms reported Allergic/Immunologic: reports: no symptoms reported All Other Systems: Reviewed and Negative Past History - Adult - PAST MEDICAL HISTORY-ADULT Review of Records: reports: Old Records Reviewed, Nursing Assessment Review, Medications Reviewed Cardiovascular: reports: CAD, CHF, HTN, hyperlipidemia Respiratory: reports: COPD Neurological: reports: TIA - PRIOR SURGERIES/PROCEDURES Surgical/Procedure History: reports: recent surgery (hip surgery), cardiac stent , other (triple bypass;AAA) - IMMUNIZATION STATUS Childhood Immunizations: See Nurse Assessment Flu Vaccine: See Nurse Assessment - FAMILY HISTORY Family History: reviewed, not pertinent - SOCIAL HISTORY Smoking: quit greater than 1 year, cigarettes Living Situation: family Physical Exam-General - PHYSICAL EXAM-ADULT Initial Vital Signs Reviewed: Yes - CONSTITUTIONAL General Appearance: alert, moderate distress, other (ill appearing) - EYES Eyes: PERRL/EOMI, pink conjunctivae - HEAD, EARS, NOSE, MOUTH & THROAT HENMT: normocephalic/atraumatic, moist mucous membranes, normal ENT inspection - NECK Neck: full range of motion, normal inspection - RESPIRATORY Respiratory: lungs clear, normal breath sounds, no respiratory distress, no accessory muscle use - CARDIOVASCULAR Cardiovascular: no gallop, no murmur, tachycardia - GASTROINTESTINAL (ABDOMEN) Abdominal Exam: normal bowel sounds, non tender, soft - MUSCULOSKELETAL Extremity: no pedal edema, normal capillary refill - SKIN Integumentary: pallor. negative: cyanosis - NEUROLOGIC Neurologic: wrapping machine tender II-XII nml as tested, no motor/sensory deficits - PSYCHIATRIC Psych/Mental Status: normal mood/affect, normal thought content, normal thought process, oriented x 3 Progress - PLAN OF CARE/RESULTS Progress/Plan/Lab Results: Vital Signs - 8 hr 02/05/17 11:21 02/05/17 12:16 02/05/17 14:04 Temperature 97.6 F Pulse Rate 111 H 112 H 120 H Respiratory Rate 22 16 19 Blood Pressure 112/60 146/67 125/71 O2 Sat by Pulse Oximetry 98 98 97 Laboratory Results - last 24 hr 02/05/17 02/05/17 02/05/17 11:11 11:11 11:11 WBC 20.34 H RBC 1.99 L Hgb 6.0 L Hct 18.7 L MCV 94.0 MCH 30.2 MCHC 32.1 L RDW Std Deviation 14.2 Plt Count 563 H MPV 10.5 H Immature Gran % (Auto) 1.5 H Neut % (Auto) 72.6 Lymph % (Auto) 15.1 L Brooke % (Auto) 9.5 H Eos % (Auto) 0.8 Baso % (Auto) 0.5 Immature Gran # (Auto) 0.31 H Neut # (Auto) 14.74 H Lymph # (Auto) 3.07 Brooke # (Auto) 1.94 H Eos # (Auto) 0.17 Baso # (Auto) 0.11 PT INR PTT (Actin FS) D-Dimer 1.24 H Sodium 133 L Potassium 4.8 Chloride 96 L Carbon Dioxide 18 L Anion Gap 19 BUN 33 H Creatinine 1.8 H Estimated GFR/1.73 m2 36 BUN/Creatinine Ratio 18 Glucose 188 H Calculated Osmolality 279 Calcium 10.1 Magnesium 2.1 Total Bilirubin 0.61 AST 47 H ALT 44 Alkaline Phosphatase 59 Creatine Kinase 165 Troponin T Xwa-D-Rzyffwlycvj Pept Total Protein 5.6 L Albumin 3.3 L Globulin 2.3 Albumin/Globulin Ratio 1.4 Plasma Lactate Blood Type Antibody Screen Crossmatch 02/05/17 02/05/17 02/05/17 11:11 11:11 11:11 WBC RBC Hgb Hct MCV MCH MCHC RDW Std Deviation Plt Count MPV Immature Gran % (Auto) Neut % (Auto) Lymph % (Auto) Brooke % (Auto) Eos % (Auto) Baso % (Auto) Immature Gran # (Auto) Neut # (Auto) Lymph # (Auto) Brooke # (Auto) Eos # (Auto) Baso # (Auto) PT 10.9 INR 1.04 PTT (Actin FS) 21.7 L D-Dimer Sodium Potassium Chloride Carbon Dioxide Anion Gap BUN Creatinine Estimated GFR/1.73 m2 BUN/Creatinine Ratio Glucose Calculated Osmolality Calcium Magnesium Total Bilirubin AST ALT Alkaline Phosphatase Creatine Kinase Troponin T 0.182 H Duo-Y-Yfxoopdyemo Pept 6445 H Total Protein Albumin Globulin Albumin/Globulin Ratio Plasma Lactate Blood Type Antibody Screen Crossmatch 02/05/17 02/05/17 02/05/17 14:20 14:37 14:37 WBC RBC Hgb Hct MCV MCH MCHC RDW Std Deviation Plt Count MPV Immature Gran % (Auto) Neut % (Auto) Lymph % (Auto) Brooke % (Auto) Eos % (Auto) Baso % (Auto) Immature Gran # (Auto) Neut # (Auto) Lymph # (Auto) Brooke # (Auto) Eos # (Auto) Baso # (Auto) PT INR PTT (Actin FS) D-Dimer Sodium Potassium Chloride Carbon Dioxide Anion Gap BUN Creatinine Estimated GFR/1.73 m2 BUN/Creatinine Ratio Glucose Calculated Osmolality Calcium Magnesium Total Bilirubin AST ALT Alkaline Phosphatase Creatine Kinase 198 Troponin T 0.237 H Jlf-S-Sgbeqoxjhmj Pept Total Protein Albumin Globulin Albumin/Globulin Ratio Plasma Lactate Blood Type B POSITIVE Antibody Screen NEGATIVE Crossmatch See Detail 02/05/17 14:37 WBC RBC Hgb Hct MCV MCH MCHC RDW Std Deviation Plt Count MPV Immature Gran % (Auto) Neut % (Auto) Lymph % (Auto) Brooke % (Auto) Eos % (Auto) Baso % (Auto) Immature Gran # (Auto) Neut # (Auto) Lymph # (Auto) Brooke # (Auto) Eos # (Auto) Baso # (Auto) PT INR PTT (Actin FS) D-Dimer Sodium Potassium Chloride Carbon Dioxide Anion Gap BUN Creatinine Estimated GFR/1.73 m2 BUN/Creatinine Ratio Glucose Calculated Osmolality Calcium Magnesium Total Bilirubin AST ALT Alkaline Phosphatase Creatine Kinase Troponin T Wtj-N-Lbyrdjgblgw Pept Total Protein Albumin Globulin Albumin/Globulin Ratio Plasma Lactate 2.1 Blood Type Antibody Screen Crossmatch Orders Category Date Time Status Cardiac Monitoring DIRECTED Care 02/05/17 11:43 Active Oxygen Therapy- ED Nursing DIRECTED Care 02/05/17 11:43 Active Saline Loc NOW Care 02/05/17 11:43 Active CHEST-2 VIEWS [RAD] Stat Exams 02/05/17 11:43 Completed LUNG SCAN / VQ [NM] Stat Exams 02/05/17 12:59 Completed BLOOD CULTURE [BLDCUL] Stat Lab 02/05/17 14:37 Results CBC WITH ELECTRONIC DIFF [HEME] Stat Lab 02/05/17 11:11 Completed CK PROFILE [SP CHEM] Stat Lab 02/05/17 11:11 Completed COMPREHENSIVE METABOLIC PANEL [CHEM] Stat Lab 02/05/17 11:11 Completed Cardiac Profile [CK PROFILE] [SP CHEM] Stat Lab 02/05/17 14:37 Completed D-DIMER [CHEM] Stat Lab 02/05/17 11:11 Completed LACTATE, PLASMA [CHEM] Stat Lab 02/05/17 14:37 Completed MAGNESIUM [CHEM] Stat Lab 02/05/17 11:11 Completed OCCULT BLOOD SCREENING [STOOL] Stat Lab 02/05/17 16:22 Uncollected PRBC [LRPC (RED CELLS)] [BBK] Stat Lab 02/05/17 14:20 Results PRO B-NATRIURETIC PEPTIDE Stat Lab 02/05/17 11:11 Completed PROTIME WITH INR [COAG] Stat Lab 02/05/17 11:11 Completed PTT [COAG] Stat Lab 02/05/17 11:11 Completed TROPONIN T Stat Lab 02/05/17 11:11 Completed TROPONIN T Stat Lab 02/05/17 14:37 Completed TYPE & SCREEN [BBK] Stat Lab 02/05/17 14:20 Results UA Reflex [URINALYSIS W/POSS RFLX CULT] [URINALYSIS] Lab 02/05/17 16:22 Ordered Stat Piperacil/Tazobact 3.375 gm/Ns [Zosyn 3.375 gm/Ns] Med 02/05/17 15:30 Active 3.375 gm in 50 ml IV Q6H EKG [EKG] Stat Ther 02/05/17 11:43 Ordered EKG, Stress Test [EKG] Stat Ther 02/05/17 15:35 Ordered VQ scan report as follows: severe bullous COPD, low probability for PE Vital Signs Temp Pulse Resp BP Pulse Ox 02/05/17 14:04 120 H 19 125/71 97 02/05/17 12:16 112 H 16 146/67 98 02/05/17 11:21 97.6 F 111 H 22 112/60 98 Sulfa (Sulfonamide Antibiotics) Allergy (Verified 02/05/17 15:23) HIVES ATORVAstatin [Lipitor] 10 mg PO HS 06/26/15 Albuterol 2.5MG/Ipratrop 0.5MG [Duoneb (A & A)] 3 ml PO DAILY 06/26/15 Ipratropium [place] 450 ml PO TID 06/26/15 Metoprolol Succinate [Toprol Xl] 50 mg PO BID 06/26/15 Tamsulosin [Flomax] 0.4 mg PO DAILY 06/26/15 Telmisartan [Micardis] 80 mg PO DAILY 06/26/15 Azelastine 205.5 Mcg Nasal Spr [Astepro Nasal [place]] 2 spray INH DAILY 10/31/16 Tiotropium [place] Inhaler [Spiriva] 1 puff INH DAILY 10/31/16 Amlodipine [Norvasc] 2.5 mg PO BID 01/28/17 Aspirin [Aspir-Low] 81 mg PO DAILY 01/28/17 Budesonide/Formoterol Fumarate [Symbicort 160-4.5 Mcg Inhaler] 10.2 inhaler IH BID 01/28/17 Clopidogrel Bisulfate [Plavix] 75 mg PO DAILY 01/28/17 Docusate Sodium [Colace] 200 mg PO DAILY 01/28/17 Famotidine 40 mg PO BID 01/28/17 Apixaban [Eliquis] 2.5 mg PO BID #14 tablet 01/30/17 Aspirin 81 mg PO DAILY chewtab 01/30/17 Docusate Sodium [Colace] 200 mg PO QHS capsule 01/30/17 Ferrous Sulfate 325 mg PO WBREAKFAST #60 tablet 01/30/17 Hydralazine [Apresoline] 25 mg PO TID #90 tablet 01/30/17 Oxycodone I.r. [Oxy Ir] 5 mg PO Q3H PRN PRN #20 capsule 01/30/17 Tamsulosin [Flomax] 0.4 mg PO QHS capsule 01/30/17 Laboratory 02/05/17 02/05/17 02/05/17 14:37 14:37 14:37 WBC RBC Hgb Hct MCV MCH MCHC RDW Std Deviation Plt Count MPV Immature Gran % (Auto) Neut % (Auto) Lymph % (Auto) [place] % (Auto) Eos % (Auto) Baso % (Auto) Immature Gran # (Auto) Neut # (Auto) Lymph # (Auto) [place] # (Auto) Eos # (Auto) Baso # (Auto) PT INR PTT (Actin FS) D-Dimer Sodium Potassium Chloride Carbon Dioxide Anion Gap BUN Creatinine Estimated GFR/1.73 m2 BUN/Creatinine Ratio Glucose Calculated Osmolality Calcium Magnesium Total Bilirubin AST ALT Alkaline Phosphatase Creatine Kinase 198 Troponin T 0.237 H Yje-A-Uzwkmfaprav Pept Total Protein Albumin Globulin Albumin/Globulin Ratio Plasma Lactate 2.1 Blood Type Antibody Screen Crossmatch 02/05/17 02/05/17 02/05/17 14:20 11:11 11:11 WBC RBC Hgb Hct MCV MCH MCHC RDW Std Deviation Plt Count MPV Immature Gran % (Auto) Neut % (Auto) Lymph % (Auto) [place] % (Auto) Eos % (Auto) Baso % (Auto) Immature Gran # (Auto) Neut # (Auto) Lymph # (Auto) [place] # (Auto) Eos # (Auto) Baso # (Auto) PT 10.9 INR 1.04 PTT (Actin FS) 21.7 L D-Dimer Sodium Potassium Chloride Carbon Dioxide Anion Gap BUN Creatinine Estimated GFR/1.73 m2 BUN/Creatinine Ratio Glucose Calculated Osmolality Calcium Magnesium Total Bilirubin AST ALT Alkaline Phosphatase Creatine Kinase Troponin T 0.182 H Fbs-T-Tphlcuacfac Pept Total Protein Albumin Globulin Albumin/Globulin Ratio Plasma Lactate Blood Type B POSITIVE Antibody Screen NEGATIVE Crossmatch See Detail 02/05/17 02/05/17 02/05/17 11:11 11:11 11:11 WBC RBC Hgb Hct MCV MCH MCHC RDW Std Deviation Plt Count MPV Immature Gran % (Auto) Neut % (Auto) Lymph % (Auto) [place] % (Auto) Eos % (Auto) Baso % (Auto) Immature Gran # (Auto) Neut # (Auto) Lymph # (Auto) [place] # (Auto) Eos # (Auto) Baso # (Auto) PT INR PTT (Actin FS) D-Dimer 1.24 H Sodium 133 L Potassium 4.8 Chloride 96 L Carbon Dioxide 18 L Anion Gap 19 BUN 33 H Creatinine 1.8 H Estimated GFR/1.73 m2 36 BUN/Creatinine Ratio 18 Glucose 188 H Calculated Osmolality 279 Calcium 10.1 Magnesium 2.1 Total Bilirubin 0.61 AST 47 H ALT 44 Alkaline Phosphatase 59 Creatine Kinase 165 Troponin T Lbb-G-Pqfrgullhbi Pept 6445 H Total Protein 5.6 L Albumin 3.3 L Globulin 2.3 Albumin/Globulin Ratio 1.4 Plasma Lactate Blood Type Antibody Screen Crossmatch 02/05/17 11:11 WBC 20.34 H RBC 1.99 L Hgb 6.0 L Hct 18.7 L MCV 94.0 MCH 30.2 MCHC 32.1 L RDW Std Deviation 14.2 Plt Count 563 H MPV 10.5 H Immature Gran % (Auto) 1.5 H Neut % (Auto) 72.6 Lymph % (Auto) 15.1 L [place] % (Auto) 9.5 H Eos % (Auto) 0.8 Baso % (Auto) 0.5 Immature Gran # (Auto) 0.31 H Neut # (Auto) 14.74 H Lymph # (Auto) 3.07 [place] # (Auto) 1.94 H Eos # (Auto) 0.17 Baso # (Auto) 0.11 PT INR PTT (Actin FS) D-Dimer Sodium Potassium Chloride Carbon Dioxide Anion Gap BUN Creatinine Estimated GFR/1.73 m2 BUN/Creatinine Ratio Glucose Calculated Osmolality Calcium Magnesium Total Bilirubin AST ALT Alkaline Phosphatase Creatine Kinase Troponin T Wko-O-Ybetzfphrhf Pept Total Protein Albumin Globulin Albumin/Globulin Ratio Plasma Lactate Blood Type Antibody Screen Crossmatch Result Diagrams: 02/05/17 11:11 02/05/17 11:11 - EKG 1 Time of EKG reading by physician:: 11:25 EKG Read and Signed by:: Tahir Davalos EKG Interpretation (*Must complete 3 of following elements*): Abnormal Rate: 117 Rhythm: Sinsu Tach with PACS [place]: left QRS: other (PACS) ST Wave: non-specific ST changes - XRAY 1 XRAY Study: Chest Impression: Abnormal XRAY Interpretation: stable COPD changes - CONSULTS/PCP/HOSPITALIST Notification #1 *Consult/PCP/Hospitalist*: [facility] Time Discussed: 15:47 Reason/Comments: elevated troponin, order echo and serial cardiacs Consult Disposition: other (will consult, ok to admit to hospitalist service here) #2 Consult: Jazmín JAUREGUI Time Discussed: 16:20 Reason/Comments: elevated trop, anemia, Consult Disposition: Will see in ED, Admit Departure - Departure Date of Disposition Decision: 02/05/17 Time of Disposition Decision: 16:26 DIAGNOSIS: COPD exacerbation, Elevated troponin, Renal insufficiency Anemia Qualifiers: Anemia type: other cause Other causes of anemia: other cause, not classified Qualified Code(s): D64.89 - Other specified anemias Sepsis Qualifiers: Sepsis type: sepsis due to unspecified organism Qualified Code(s): A41.9 - Sepsis, unspecified organism Disposition: ADMITTED INPATIENT 09 Certified Medical Emergency: Emergent Condition: Stable Referrals and Follow-Ups: None,PCP [Primary Care Provider] - - Critical Care Note This patient required my direct & personal management of CC.: Yes Total Time (mins): 65 Critical Care Statement: This patient required my direct personal management to treat or rule out processes, the absence of which, could potentiallly result in sudden, clinically significant life or limb threatening deterioration. This chart was documented by the indicated scribe, (Jared Devries, Scribe) and accurately reflects the services I performed and decisions made by me, Tahir Davalos MD, as attested by the provider's signature.
[2017-02-05] MEDS: ZOSYN 3.375 GM/NS 3.375 GM/50 ML IVPB IV SCH (17:05)
[2017-02-05 17:08] LABS: IRON SATURATION 11 %; TIBC 372 ug/dL; TOTAL IRON 40 ug/dL (53-167); UNBOUND IRON 332 ug/dL (112-346)
[2017-02-05 17:33] LABS: FERRITIN 65 ng/mL (30-400)
[2017-02-05] MEDS ORDERED: ZOFRAN IV PRN (17:40)
--- NOTE | 2017-02-05 18:14 | Diag Imaging Result Doc PS360 ---
THORAX/ABDOMEN/PELVIS W/O CONT - 02/05/2017 INDICATION: sob; anemia; gib; recent left hip surgery; leukocy TECHNIQUE: A CT dose reduction protocol was used. COMPARISON: None FINDINGS: CHEST: There is severe pulmonary emphysema. There is some linear atelectasis or scarring in the lung bases. At the posterior surface of the left lower lobe, in the superior segment, there is an irregular nodular density measuring 1.6 cm. There is some widespread chronic bronchitis. No adenopathy. There are CABG changes. Heart size is grossly normal. There are moderate degenerative changes of the spine. No acute or suspicious bony lesion. . Abdomen pelvis: There is an aorto-biiliac stent in good position. Aorta measures less than 2.9 cm. No radiodense renal stones. No hydronephrosis or hydroureter. No bowel obstruction or inflammation. Urinary bladder, prostate, and rectum are normal. There are numerous diverticula of the sigmoid and descending colon. IMPRESSION: 1. Diverticulosis coli. 2. Severe COPD. Chronic bronchitis. 3. Left lower lobe pulmonary nodule. Follow-up recommended. Electronically signed by Keyshawn Lozoya 02/05/2017 6:12 PM
[2017-02-05 18:23] LABS: ALLEN TEST YES; BE -0.4 mmoll (-3.0-3.0); BLOOD TYPE ARTERIAL; DRAW SITE R RADIAL; METHB 0.9 % (0.0-1.5); O2(CT) 7.4 mL/dL (15.0-23.0); PCO2(98.6) 32 mmHg (35-45); PO2(98.6) 99 mmHg (60-100); SAMPLE BLOOD; SAO2 98.7 % (95.0-100.0); THB 5.3 g/dL (11.5-17.4); pH(98.6) 7.47 (7.35-7.45)
[2017-02-05 18:24] LABS: MODALITY CANNULA
--- NOTE | 2017-02-05 18:47 | HISTORY AND PHYSICAL ---
PRIMARY CARE PROVIDER: Pedrito Michelle MD ORTHOPEDIC SURGEON: Pedrito Leon MD CHIEF COMPLAINT: Shortness of breath with chest discomfort. HISTORY OF PRESENT ILLNESS: Mr. Ching Salcido is an 82-year-old, ill- appearing, male, with a medical history of recent left femoral neck closed reduction with pinning 01/28/[address] Leon. He also has a medical history of peripheral arterial disease, coronary artery disease, status post CABG, COPD without home oxygen. Brief history, on his recent admit, he was admitted from 01/27-01/30 secondary to a fall with a left femoral neck fracture. He had a closed reduction and percutaneous pinning to the left femoral neck on 01/28/[address] Leon. Upon discharge, he had stable vital signs, white blood cell count of 8000, hemoglobin of 11 and a creatinine of 1.5. He now returns with complaints of shortness of breath and chest discomfort. Upon further evaluation, it was found that he has an elevated white count of 20,000, a hemoglobin of 6, hematocrit of 18, creatinine of 1.8 and elevated cardiac enzymes, troponin being 0.182 on admit with a repeat of 0.237. The patient's case has been discussed with Cardiology by the ER physician that was caring for this patient. Other lab work that is pertinent, he had an elevated D-dimer 1.24 but was ruled out for any PE via V/Q scan showing low probability. Chest x-ray and V/Q scan both showed COPD. No obvious signs of pneumonia. Temperature was normal on admit. All vital signs were stable except for he is tachycardic. He did have a saturation according to his in the 80s prior to oxygen be on placed on admit. ABG has been ordered. Results have not been obtained yet. Patient states that he has been having black, tarry stools, 1-2 per day, but they assumed it was from his iron intake by medication. He feels like when he eats food it gets stuck mid chest. Apparently last night, he had worsening symptoms. He was short of breath. He felt a burning sensation in his epigastric chest area. It did not radiate. He did have 1 spell of vomiting and he had been having some diaphoresis. Upon evaluation of a hemoglobin of 6, two units of packed red blood cells were ordered in the ER. Anemia studies were ordered and he continues to have iron deficiency anemia. He also was on ASA, Plavix, and 7 days of Eliquis. Plans are to place patient on a Protonix drip, do serial hemoglobin, hematocrit, continue with 2 units packed red blood cells. As far as his elevated white blood cell count, he denies any fever or chills. He states that he has only had hot flashes with sweating. Urinalysis was negative. Chest x-ray does not show pneumonia. Blood cultures have been ordered. . Send him to the ICU for close observation and we will consult Cardiology, Gastroenterology and Orthopedic surgeon. PAST MEDICAL HISTORY: 1. Iron-deficiency anemia. 2. Chronic kidney disease stage 3. 3. Coronary artery disease status post CABG. 4. Peripheral arterial disease. 5. COPD, no home oxygen. 6. Grade 1 diastolic dysfunction. 7. Hypertension. 8. Hyperlipidemia. 9. TIA in 1999. 10. GERD. 11. BPH. SURGICAL HISTORY: 1. Abdominal aortic aneurysm repair. 2. CABG. 3. Recent left hip replacement with pins. 4. Closed reduction with percutaneous pinning to the left femoral neck. 5. Stents to bilateral legs due to peripheral arterial disease. SOCIAL HISTORY: Remote smoker, quit in September 2007. Prior to that, smoked 1 pack per day. Denies alcohol or illicit drug use. Lives at home with his . He currently has been using a walker and physical therapy through [facility]. FAMILY HISTORY: Two sons, both with cancer, liver cancer and prostate cancer. Mother with coronary artery disease and leukemia. Also had some 1st degree relatives with myocardial infarction, Parkinson's essential tremor and dementia. REVIEW OF SYSTEMS: Fourteen point review of systems were complete and all were negative except for those mentioned above HPI. ALLERGIES: Sulfa. HOME MEDICATIONS: 1. Albuterol/Atrovent nebulizers. 2. Norvasc 2.5 mg p.o. twice daily. 3. Eliquis 2.5 mg p.o. twice daily for 7 days. 4. Aspirin 81 mg p.o. daily. 5. Lipitor 10 mg p.o. nightly. 6. Astepro nasal spray, 2 sprays inhaled daily. 7. Symbicort 160-4.5 mcg inhaled twice daily. 8. Plavix 75 mg p.o. daily. 9. Colace 200 mg p.o. nightly. 10. Pepcid 40 mg p.o. twice daily. 11. Ferrous sulfate 325 mg p.o. with breakfast. 12. Apresoline 25 mg p.o. 3 times daily. 13. Ipratropium bromide 450 mL p.o. t.i.d. 14. Toprol-XL 50 mg p.o. twice daily. 15. Oxycodone 5 mg p.o. every 3 hours p.r.n. 16. Flomax 0.4 mg p.o. daily. 17. Micardis 80 mg p.o. daily. 18. Spiriva 1 puff inhaled daily. PHYSICAL EXAMINATION: VITAL SIGNS: Temperature 97.6 degrees, heart rate 109, respiratory 21, blood pressure 125/71, O2 saturation 100% on 4 L nasal cannula. He is 6 feet 2 inches tall, 193 pounds. BMI 24.8. GENERAL: Mr. Ching Salcido is an 82-year-old, ill-appearing, male. He is in no acute distress. Very pale in color. He is able answer questions appropriately. HEENT: Pale sclera. Extraocular movements are intact. Mucous membranes are very dry and pale. Normocephalic, atraumatic. NECK: No JVD or carotid bruits noted. CARDIOVASCULAR: S1, S2. Tachycardic rate and rhythm. No rubs, gallops, murmurs. PULMONARY: Very decreased breath sounds throughout with extremely prolonged expiration. Currently on 4 L nasal cannula. No accessory muscle use noted. GI: Soft, nontender, nondistended. Hypoactive bowel sounds x4. EXTREMITIES: No edema noted. Some bruising on the inner thigh of the left leg noted, no swelling. He has got +2 dorsalis and radial pulses. SKIN: Warm, dry, intact. Pale. NEUROLOGIC: Alert and oriented x4. Moves all extremities equally with 4/5 strength and decreased range of motion in the left leg. LABORATORY DATA: White blood cells 20,000, hemoglobin 6, hematocrit 18.7, platelet count 563,000. INR 1.04, PTT is 21.7, D-dimer 1.24, sodium 133, potassium 4.8, BUN 33, creatinine is 1.8, glucose 188. Magnesium 2.1. Iron 40, total iron binding capacity is 372. Iron saturation is 11, unsaturated iron is 322, ferritin 65, bilirubin 0.61. AST 47, ALT 44, CK 198. Troponin 0.237. ProBNP is 6445. Albumin 3.3, lactate 2.1. Vitamin B12 346, folate 12.1. Urinalysis negative. IMAGING: Chest x-ray: Stable COPD changes. No acute findings. Lung scan V/Q scan: Advanced bullous COPD. Low probability for pulmonary embolism. ASSESSMENT AND PLAN: 1. Acute blood loss anemia likely secondary to upper gastrointestinal bleed. Has been on Eliquis for 7 days only, Plavix and aspirin. Discharge hemoglobin on 01/29/2017 was 11.3, today is down to 6. We will do serial hemoglobin and hematocrit every 6 hours. We will transfuse with 2 units of packed red blood cells. 2. Upper gastrointestinal bleed. Black, tarry stools. Positive stool for blood. Gastroenterology has been consulted. Started Carafate q.6 hours, Protonix drip. We will have an abdominal and pelvic computed tomography. Goal hemoglobin will be 8. 3. Leukocytosis. He is afebrile. Did have some shortness of breath. The chest x-ray shows no pneumonia, we will follow up with a chest computed tomography. Urinalysis is negative for urinary tract infection. Blood cultures are pending. We will start Gram positive and Gram negative coverage with Zosyn and vancomycin. 4. Iron deficiency anemia. We will start iron supplementation once giving p.o. Iron level is 40 and that is while receiving iron supplementation orally. 5. Elevated D-dimer. Ventilation/perfusion scan was negative for pulmonary emboli or the probability was very low. He has had a recent surgery. We will do a bilateral lower extremity ultrasound to rule out any source of deep venous thrombosis. 6. Type 2 myocardial ischemia versus infarction with elevated troponin. CKs are normal. This is likely secondary to anemia and hypoxemia. With a history of coronary artery disease and coronary artery bypass graft, Cardiology has been consulted. We will do serial CKs and troponins. Repeat electrocardiogram in the morning. Patient did have complaints of shortness of breath and sweating last night with what he states was epigastric to chest discomfort. 7. Recent closed reduction with percutaneous pinning to the left femoral neck fracture performed by Dr. Leon on 01/28/2017. Incision appears clean and dry with a clean, dry dressing. The sarthak are intact, so we will reconsult Orthopedics and Physical Therapy. 8. Chronic obstructive pulmonary disease, likely with exacerbation as he had low O2 saturations on admit prior to oxygen being applied. We will obtain an arterial blood gas. Chest x-ray and ventilation/perfusion scan both show chronic obstructive pulmonary disease. We will do low-dose IV steroids, inhaled nebulizers and follow up on chest computed tomography. 9. Mild acute kidney insufficiency on chronic kidney disease stage 3. Likely secondary to dehydration as there is hyponatremia and hypochloremia. We will do normal saline at 75 an hour for at least 2 L. Normally his blood urea nitrogen is in normal range. It is slightly elevated at 33 and creatinine is 1.8. We will recheck in the morning. 10. Thrombocytosis, likely secondary to inflammatory response. We will trend daily. 11. Hyperglycemia. No history of diabetes. We will check a hemoglobin A1c in the morning. 12. History of peripheral arterial disease. Was on Plavix for this as he has had bilateral leg stents in the past. Currently, we will be holding all anticoagulants secondary to the upper gastrointestinal bleed. 13. Grade 1 diastolic dysfunction. Again, Cardiology will be following and proBNP is 6445. Back in October it was 905. 14. Hyperlipidemia. Holding on medications for right now until oral medications can be tolerated. 15. Benign prostatic hypertrophy. We will continue home medications soon. 16. Deep venous thrombosis prophylaxis will be Sequential Compression Devices. Dictated by SHANIA Harmon for Chiquita Green MD cc: SHANIA Harmon MD John V. Irle, MD John R. Riehl, MD The patient was seen and examined by me. I agree with the assessment and plan as dictated. [facility]
[2017-02-05] MEDS: PROTONIX 80 MG in NS 80 ML IV SCH (19:00)
[2017-02-05] MEDS: ATROVENT NEB INH SCH ×2 (19:41→22:42)
[2017-02-05] MEDS: XOPENEX NEB INH SCH ×2 (19:41→22:42)
[2017-02-05] MEDS: PULMICORT INH SCH (19:42)
[2017-02-05] MEDS ORDERED: VANCOMYCIN IV PER PHARMACY MISC SCH (19:51)
[2017-02-05] MEDS ORDERED: MORPHINE IV PRN (20:03)
[2017-02-05] MEDS ORDERED: NS 500 ML ONE (20:09)
[2017-02-05] MEDS ORDERED: LASIX IV ONE (20:35)
[2017-02-05] MEDS ORDERED: LASIX IV SCH (20:45)
[2017-02-05 21:10] LABS: URINE CULTURE NEEDED? NO; URINE MICRO REVIEW NEEDED? NO; URINE SOURCE CATH
[2017-02-05 21:14] LABS: BILIRUBIN URINE NEGATIVE (NEGATIVE); BLOOD URINE NEGATIVE (NEGATIVE); COLOR YELLOW; GLUCOSE URINE NEGATIVE (NEGATIVE); LEUKOCYTES URINE NEGATIVE (NEGATIVE); NITRITE URINE NEGATIVE (NEGATIVE); PROTEIN URINE NEGATIVE (NEGATIVE); SP GRAVITY URINE 1.017; TURBIDITY URINE CLEAR (CLEAR); UROBILINOGEN URINE NORMAL (NORMAL)
[2017-02-05 21:15] LABS: UR EPITHELIAL CELLS <10 /HPF (<10); URINE BACTERIA NEGATIVE /HPF; URINE RBC <10 /HPF (<10); URINE WBC <10 /HPF (<10)
[2017-02-05] MEDS: VANCOMYCIN 1,700 MG in NS 250 ML IV ONE ×2 (21:15→21:38)
[2017-02-05] MEDS: CARAFATE LIQUID PO SCH (21:38)
[2017-02-05] MEDS: SOLU-MEDROL IV SCH (21:39)
[2017-02-05] MEDS: NS 1,000 ML IV SCH (21:51)
[2017-02-06] MEDS: HUMULIN R SUBQ SCH ×5 (01:41→20:12)
[2017-02-06] MEDS: CARAFATE LIQUID PO SCH ×4 (02:00→20:12)
[2017-02-06] MEDS: ZOSYN 3.375 GM/NS 3.375 GM/50 ML IVPB IV SCH ×4 (02:01→21:30)
[2017-02-06] MEDS: SOLU-MEDROL IV SCH ×3 (02:01→16:48)
[2017-02-06] MEDS: XOPENEX NEB INH SCH ×6 (02:39→22:42)
[2017-02-06] MEDS: ATROVENT NEB INH SCH ×6 (02:39→22:42)
[2017-02-06] MEDS: PROTONIX 80 MG in NS 80 ML IV SCH ×3 (04:07→23:19)
--- NOTE | 2017-02-06 05:41 | EKG Report ---
Test Performed on : 02/05/2017 11:25:28 AM Test Reason : CP/Re-Ordered Blood Pressure : / mmHG Vent. Rate : 117 BPM Atrial Rate : 117 BPM P-R Int : 168 ms QRS Dur : 104 ms QT Int : 346 ms P-R-T Axes : 007 -41 102 degrees QTc Int : 482 ms Sinus tachycardia. with premature atrial complexes. with aberrant conduction. Left axis deviation Low voltage QRS Septal infarct , age undetermined Abnormal ECG When compared with ECG of 27-JAN-2017 20:49, aberrant conduction. is now present Vent. rate has increased BY 42 BPM Incomplete left bundle branch block is no longer present Unconfirmed Result
[2017-02-06] MEDS: PULMICORT INH SCH ×2 (10:48→19:00)
[2017-02-06] MEDS: NS 1,000 ML IV SCH (11:17)
--- NOTE | 2017-02-06 11:37 | CONSULTATION ---
DATE OF CONSULTATION: 02/06/2017 REQUESTING PHYSICIAN: Hospitalist service. REASON FOR CONSULTATION: Chest pain, shortness of breath. HISTORY: Mr. Salcido is an 82-year-old male who presented to the hospital at about 11:30 in the morning with complaints of increasing exertional dyspnea to minimal effort and a burning sensation in the middle of the chest that was very uncomfortable. Upon presentation, they did an electrocardiogram that shows sinus tachycardia with nonspecific ST abnormality in the lateral leads and left axis deviation. The patient received a blood count at the time of initial presentation that shows a hemoglobin of 6.0 and a white count of 20,000. He reported having some dark stools. His iron levels were low with a saturation of 11%. His ferritin level was also low. They went ahead and gave him 2 units of blood. This morning he is feeling somewhat better. He is not having any more chest pain, and his breathing is more comfortable. The patient is bothered by multiple bruises on the arms, and he was refusing to have blood draws. PAST MEDICAL HISTORY: His past history is positive for a recent admission to the hospital for surgical management of a broken hip. He was operated by Dr. Leon for a fracture of the left femoral neck, and at the time of discharge, he was placed on anticoagulant Eliquis plus the antiplatelet agents that he normally takes that are Plavix and aspirin. He was sent home on January 30. The patient has coronary heart disease. He has had previous coronary bypass. He has chronic kidney disease. He has peripheral artery disease with claudication. He has COPD from being a smoker. He has hypertension, hyperlipidemia, previous TIA, gastric reflux, and benign prostatic hypertrophy. He has also had paroxysmal atrial fibrillation at some point. SURGICAL HISTORY: He has had the triple coronary bypass. He has had abdominal aortic aneurysm repair percutaneously. He has had just the left hip surgery that we are talking about. He has had lower extremity arterial stents. SOCIAL HISTORY: He lives at home with his . He has been a smoker and a drinker. He does not use illicit drugs. FAMILY HISTORY: Positive for coronary heart disease in mother. REVIEW OF SYSTEMS: Positive for increasing dyspnea and weakness as well as pain in the left hip. HOME MEDICATIONS: At the time of this admission included Spiriva one puff daily, Micardis 30 mg daily, Flomax 0.4 mg at bedtime, oxycodone 5 mg q.3 h., metoprolol 50 twice a day, ipratropium 450 three times a day, hydralazine 25 mg three times a day, ferrous sulfate 325 with breakfast, famotidine 40 twice a day, Colace 200 mg at bedtime, Symbicort inhaler twice a day, Astepro nasal spray, aspirin 81 mg daily, apixaban 2.5 twice a day, amlodipine 2.5 twice a day , atorvastatin 10 mg daily. PHYSICAL EXAMINATION: Vital signs: Blood pressure is 140/74, pulse 117, temperature 97.3, respirations 20. General: He is elderly, covered in bruises. He is a awake. He seems to be cooperative. HEENT: Unremarkable. Chest: Diminished breath sounds diffusely , no wheezes. Cardiac: Heart sounds are tachycardic, regular. No gallop or murmur is noted. He has a midsternal scar of previous surgery. Abdomen: Not distended. Some bruises on the abdomen noted. Extremities: Showed multiple bruises on the left arm and also on the right arm. His pulses in the feet are palpable but they are diminished. Neurological: He appears to be awake, alert, cooperative, in no distress, and cranial nerves are normal. He follows commands. Moves four extremities. ADDITIONAL BLOOD WORK: His additional blood work from yesterday: Sodium 133, potassium 4.8, BUN 33, creatinine 1.8. His CPK is 229, troponin 0.325, proBNP 6445. Albumin is 3.3. Folate 12.1. IMPRESSION: 1. Patient presented to the hospital with increasing dyspnea and chest pain with elevation of troponin levels, abnormal EKG. Knowing that this patient has had previous coronary bypass surgery, this makes it suspicious for an acute coronary syndrome happening late in the postoperative stage of a left broken hip. Probable non ST elevation RI. 2. Severe coronary heart disease, previous bypass. 3. Severe peripheral vascular disease, previous abdominal aortic aneurysm repair and intervention to the legs. 4. History of chronic kidney disease. 5. Hypertension. 6. Hyperlipidemia. RECOMMENDATION: At this point in time, I would suggest to pursue conservative management. Let's try to optimize his hemoglobin. Put on hold the anticoagulants. We may have to cut down on the antiplatelet agents. His situation is complicated because of coronary ischemia and supposedly active GI bleeding. Gastroenterology needs to be summoned in the case. Further advice will be forthcoming. cc: Wayne Barfield MD MTDD
[2017-02-06 12:09] LABS: BASO% 0.1 % (0.0-0.8); HEMATOCRIT 26.1 % (42.0-52.0); HEMOGLOBIN 8.8 g/dL (14.0-18.0); IMM GRAN# 0.21 X1000 (0.0-0.04); IMM GRAN% 1.3 % (0.0-0.5); LYMPH% 6.1 % (20.5-51.1); MANUAL DIFF NEEDED? YES; MCH 29.9 PG (27-31); MCHC 33.7 g/dL (33-37); MCV 88.8 FL (81-99); MONO% 5.5 % (1.7-9.3); MPV 9.6 FL (7.4-10.4); PLT 432 X1000 (130-400); RBC 2.94 XMIL (4.7-6.1)
[2017-02-06 12:26] LABS: BANDS 1 % (0-1); LYMPHS 3 % (21-51); MONO 2 % (1-9); NRBC 1 % (0-0)
[2017-02-06 13:01] LABS: ALBUMIN 3.6 g/dL (3.5-5.0); CALCIUM 8.9 mg/dL (8.8-10.2); POTASSIUM 4.5 mmol/L (3.5-5.1); TOTAL BILIRUBIN 1.05 mg/dL (0.20-1.00); TOTAL PROTEIN 5.2 g/dL (6.3-8.3)
--- NOTE | 2017-02-06 13:32 | CONSULTATION ---
DATE OF CONSULTATION: 02/06/2017 CHIEF COMPLAINT: Left hip pain. HISTORY OF PRESENT ILLNESS: Mr. Salcido is an 82-year-old, male who is 9 days postoperative of a closed reduction percutaneous pinning of a left femoral neck fracture. He is complaining of left hip pain and we were asked for further evaluation. PRIMARY CARE PROVIDER: None. ALLERGIES: Sulfa. PAST MEDICAL HISTORY: 1. Iron deficiency anemia. 2. Chronic kidney disease stage 3. 3. Coronary artery disease status post CABG. 4. Peripheral artery disease. 5. COPD. 6. Grade 1 diastolic dysfunction. 7. Hypertension. 8. Hyperlipidemia. 9. TIA in 2009. 10. GERD. 11. BPH. PAST SURGICAL HISTORY: 1. Abdominal aortic aneurysm repair. 2. CABG 3. Closed reduction and percutaneous pinning of left femoral neck fracture. 4. Bilateral leg stents due to peripheral artery disease SOCIAL HISTORY: He is a prior smoker. Lives at home with his . HOME MEDICATION: See medication list in chart. REVIEW OF SYSTEMS: Ten point review with the patient. Otherwise negative other than mentioned in the HPI above. PHYSICAL EXAMINATION: HEENT: Head is normocephalic, atraumatic. Neck: Supple. Heart: Tachycardic rate and rhythm. No murmurs, rubs, or gallops. Lungs: Breathing is nonlabored. Abdomen: Nondistended. Neurological: He discerns soft touch to the affected extremity. Gross motor function is intact. Musculoskeletal: Left hip. The left hip reveals incision that is healing nicely with no sign of infection or drainage. He has good early range of motion of his hip. His left leg is neurovascularly intact. IMPRESSION: Postop day 9 of a closed reduction percutaneous pinning of a left femoral neck fracture. PLAN: We will remove his sarthak today and change his dressing. We will have him to continue working with physical therapy. We reviewed the CT of his pelvis and the fracture appears to be in acceptable position but we will obtain an x-ray of his pelvis to further determine the position of his fracture and the hardware. Dictated by ILANA Spears for Berny Kasper MD cc: ILANA Spears MD [facility]
--- NOTE | 2017-02-06 13:37 | Diag Imaging Result Doc PS360 ---
XRAY PELVIS W/HIP 2-3VW LT - 02/06/2017 INDICATION: post op left hip fracture TECHNIQUE: Two views COMPARISON: 01/27/2017 FINDINGS: There are three new internal fixation screws at the left femoral neck. There is otherwise little change in the mildly impacted subcapital left femoral neck fracture. No dislocation. No new fractures. IMPRESSION: New orthopedic hardware at the left hip fracture with no evidence of complication. Electronically signed by Keyshawn Lozoya 02/06/2017 1:35 PM
--- NOTE | 2017-02-06 18:43 | PROGRESS NOTE ---
DATE: 02/06/2017 SUBJECTIVE: Mr. Salcido was admitted on 02/05/2017. He is an 82-year-old admitted with shortness of breath and chest discomfort. His orthopedic surgeon is Dr. Leon. His primary care doctor is Dr. Pedrito Michelle. He is an 82-year-old with medical history of a recent femoral neck closed reduction and pinning 01/28/[address] Leon. His has a medical history of peripheral arterial disease, coronary artery disease status post CAB graft, COPD on home oxygen. Recently admitted on 01/27/2017 to 01/30/2017 secondary to a fall with left femoral neck fracture. He had a closed reduction and percutaneous pinning of left femoral neck on 01/28/[address] Leon. Upon discharge he had stable vital signs. Hemoglobin was 11. He returned with complaints shortness of breath, chest discomfort. On further evaluation it was found that he had an elevated white count of 20,000, hemoglobin was 6, hematocrit is 18. Creatinine 1.8. Elevated cardiac enzymes and troponin being 0.182 with a repeat 0.237. He was admitted and had a D-dimer of 1.24. Ruled out for PE via V/Q scan. Chest x-ray and V/Q scan showed COPD. No obvious sign of pneumonia. Temperature was normal. Vital signs unremarkable. The patient states that he has been having black tarry stools 1-2 a day but assumed this was from iron intake. Anyway, he was admitted with anemia, chronic kidney disease stage 3, coronary artery disease, peripheral artery disease, acute blood loss anemia. He has been on Eliquis, Plavix, and aspirin. We transfused him 2 units of packed red blood cells and then transfused him another 2. ASSESSMENT AND PLAN: 1. He appears to have an upper gastrointestinal bleed, black tarry stools. GI consulted. Plan to do an EGD I think in the morning. 2. Leukocytosis. He remains afebrile. May be stress induced. 3. Iron-deficiency anemia, most likely from blood loss anemia. 4. Elevated D-dimer. Ventilation perfusion scan was negative, so no sign of PTE. 5. Type 2 myocardial ischemia versus infarction. Elevated troponin. CPKs are normal. Suspect it represents oxygen tissue see mismatch, so we did give him another 2 units and have given him IV fluids. 6. Recent close reduction percutaneous pinning of left femoral neck fracture, performed by Dr. Leon. 7. History of chronic obstructive pulmonary disease. He was complaining of shortness of breath so he was getting some bronchodilators, O2 supplement. 8. Mild kidney insufficiency. We will watch. Give him fluids. 9. Thrombocytosis. 10. Hyperglycemia. 11. History of peripheral arterial disease. 12. Grade 1 diastolic dysfunction. 13. Benign prostatic hypertrophy. cc: Raul Cook MD
--- NOTE | 2017-02-06 19:32 | CONSULTATION ---
DATE OF CONSULTATION: 02/06/2017 ATTENDING PHYSICIAN: Raul Cook MD PRIMARY CARE PHYSICIAN: None. REASON FOR CONSULTATION: Gastrointestinal bleed. HISTORY OF PRESENT ILLNESS: Mr. Salcido is an 82-year-old male who was admitted on 02/05/2017 for shortness of breath and chest discomfort. He had a recent history of left femoral neck closed reduction with pinning on 01/28/[address] Leon. He also has a known history of peripheral artery disease, coronary artery disease, status post bypass, COPD, so he had been on aspirin, Plavix, and Eliquis. On presentation to the hospital, he was noted to have anemia with a hemoglobin of 6, hematocrit of 18. This had dropped from a level of 11 grams on 01/30/2017. The patient has been having some off and on dark stools, and he complains of epigastric discomfort. He was also noted to have some mild troponin leak, and he is being evaluated by Dr. Barfield. PAST MEDICAL HISTORY: 1. Iron deficiency anemia. 2. Chronic kidney disease stage 3. 3. Coronary artery disease, status post CABG. 4. Peripheral artery disease. 5. COPD. 6. Grade 1 diastolic dysfunction. 7. Hypertension. 8. Hyperlipidemia. 9. TIA. 10. GERD. 11. BPH. PAST SURGICAL HISTORY: 1. Abdominal aortic aneurysm repair. 2. CABG. 3. Recent left hip replacement with pins. 4. Closed reduction with percutaneous pinning to the left femoral neck. 5. Stents to the bilateral legs due to peripheral vessel artery disease. SOCIAL HISTORY: He is a remote smoker, quit in September 2007. Prior to that, he smoked 1 pack a day. Denies any alcohol or illicit drug abuse. He lives at home with his . FAMILY HISTORY: Two sons both with cancer, liver cancer and prostate cancer. No history of colon cancer in the family. REVIEW OF SYSTEMS: Limited as the patient was undergoing x-rays by the time I was there to interview and examine. ALLERGIES: Sulfa. MEDICATIONS AT HOME: The medications at home were reviewed on the chart. MEDICATIONS IN THE HOSPITAL: His medications in the hospital were reviewed on the chart. PHYSICAL EXAMINATION: Vital Signs: Temperature of 98.6 degrees, pulse rate of respiratory rate 19, blood pressure 123/64, saturating 94% on room air. Body weight of 189 pounds 9.6 ounces, BMI 24.3 kg. General: Moderately nourished, lying in bed, in no acute distress. HEENT: Pale conjunctivae. No icterus. Pupils equal, react to light. Neck: Supple. Chest: Decreased breath sounds. Cardiac: Tachycardic. No murmur. Abdomen: Soft, mild discomfort in the epigastrium region. No rebound or guarding. Bowel sounds are present. Extremities: No cyanosis, clubbing. Bruises noted on both upper extremities. Neurologic: He is alert, awake, oriented and answers simple questions. LABORATORY DATA: Hemoglobin and hematocrit are 8.8 and 26.1, white count 16.38 , platelet count of 432,000, MCV of 88.8. His hemoglobin and hematocrit on admission were 6 and 18.7. INR 1.04, PT of 10.9, PTT of 21.7. Sodium 140, potassium 4.5, chloride 98, bicarbonate 23, anion gap of 19, BUN of 38, creatinine 2, glucose of 143, calcium is 8.9, phosphorus 4.6, magnesium 2, total bilirubin is 1.05, AST 59, ALT 37, alkaline phosphatase 58, total protein 5.2, albumin of 3.6. Troponin is 0.523. Urine analysis clear. He had a chest, abdomen, and pelvis CT scan on 02/05/2017, which showed: (1) Diverticulosis coli. (2) Severe COPD. (3) Chronic (4) Left lower lobe pulmonary nodule. (5) Aortoiliac stent in good position. Aorta measures less than 2.9 cm. (6) CABG changes noted. (7) Moderate degenerative changes are noted. (8) Numerous diverticula noted in the sigmoid and descending colon. IMPRESSION: 1. Melena. 2. Anemia in the setting of use of aspirin, Plavix, and Eliquis. 3. Chronic obstructive pulmonary disease. 4. Coronary artery disease, status post coronary artery bypass grafting on aspirin and plavix. 5. Recent orthopedic surgery as described above and was placed on Eliquis on discharge. 6. Severe anemia requiring blood transfusion. 7.Colonic diverticulosis. RECOMMENDATIONS: 1. We will continue him on Protonix drip. 2. We will schedule for EGD tomorrow. The risks, benefits, indications, and alternatives of the procedure were discussed with the family at bedside. 3. We will type and cross, transfuse to keep hematocrit more than 25%. 4. The patient will continue Carafate 1 gram every 6 hours. 5. They will hold the anticoagulation as per the primary care team. 6. The patient will need to be on a bowel regimen once able to start orally. 7. He will continue on treatment for COPD and coronary artery disease by the primary care team. cc: MD Raul Alfaro MD Richard S. Sharp, MD Luis N. Villanueva, MD MTDD
[2017-02-06] MEDS: PERICOLACE PO SCH (20:12)
[2017-02-06 22:29] LABS: HEMATOCRIT 30.5 % (42.0-52.0); HEMOGLOBIN 10.4 g/dL (14.0-18.0)
[2017-02-07] MEDS: SOLU-MEDROL IV SCH ×3 (00:47→17:09)
[2017-02-07] MEDS: ZOSYN 3.375 GM/NS 3.375 GM/50 ML IVPB IV SCH ×4 (00:49→17:09)
[2017-02-07] MEDS: XOPENEX NEB INH SCH ×6 (02:57→23:33)
[2017-02-07] MEDS: ATROVENT NEB INH SCH ×6 (02:57→23:33)
[2017-02-07] MEDS: PROTONIX 80 MG in NS 80 ML IV SCH ×3 (03:16→20:00)
[2017-02-07] MEDS: CARAFATE LIQUID PO SCH ×4 (03:17→20:00)
[2017-02-07] MEDS ORDERED: VASELINE TOP PRN (04:58)
[2017-02-07 05:30] LABS: BASO% 0.1 % (0.0-0.8); HEMATOCRIT 33.3 % (42.0-52.0); HEMOGLOBIN 11.3 g/dL (14.0-18.0); IMM GRAN# 0.16 X1000 (0.0-0.04); IMM GRAN% 0.9 % (0.0-0.5); LYMPH# 0.68 X1000 (1.2-3.4); LYMPH% 3.8 % (20.5-51.1); MANUAL DIFF NEEDED? YES; MCH 29.8 PG (27-31); MCHC 33.9 g/dL (33-37); MCV 87.9 FL (81-99); MONO# 1.03 X1000 (0.11-0.59); MONO% 5.8 % (1.7-9.3); MPV 9.7 FL (7.4-10.4); NEUT% 89.4 % (42.2-75.2); PLT 398 X1000 (130-400); RBC 3.79 XMIL (4.7-6.1)
[2017-02-07 06:13] LABS: ALBUMIN 3.2 g/dL (3.5-5.0); CALCIUM 8.5 mg/dL (8.8-10.2); MAGNESIUM 2.2 mg/dL (1.5-2.7); POTASSIUM 3.5 mmol/L (3.5-5.1); TOTAL BILIRUBIN 0.99 mg/dL (0.20-1.00); TOTAL PROTEIN 5.6 g/dL (6.3-8.3)
[2017-02-07] MEDS ORDERED: LOPRESSOR PO ONE (06:27)
[2017-02-07] MEDS: HUMULIN R SUBQ SCH ×4 (06:33→22:00)
[2017-02-07 07:14] LABS: LYMPHS 2 % (21-51); MONO 4 % (1-9)
[2017-02-07] MEDS: PULMICORT INH SCH ×2 (07:55→20:19)
[2017-02-07] MEDS: PERICOLACE PO SCH ×2 (08:56→20:00)
[2017-02-07] MEDS ORDERED: VANCOMYCIN 1,400 MG in NS 250 ML IV SCH (09:00)
--- NOTE | 2017-02-07 10:36 | PROGRESS NOTE ---
DATE: 02/07/2017 CHIEF COMPLAINT: Shortness of breath and chest discomfort. SUBJECTIVE: Mr. Salcido had an uneventful night. He is not having any more discomfort in the chest. His CKs are coming down and his troponin is lingering around the same level. His EKG done at the time of admission showed no acute changes. He is comfortable right now. The patient is fasting for anticipated tests today. OBJECTIVE: Vital signs: Blood pressure is 121/54, temperature 98.6, pulse 94, and respirations 20. General: He is awake, alert, and follows commands. He has some nonspecific tremor. HEENT: Unremarkable. Chest: Diminished breath sounds at the bases. Cardiovascular: Heart sounds are regular and rhythmic. I do not hear any definite gallop or murmur. Abdomen: His abdomen is nontender and soft. Extremities: The extremities show decreased pulses. No edema. Neurological: Tremor. He follows commands. He is hard of hearing. LABORATORY DATA: CK is down to 136. Troponin is 0.531. His sodium is 137, potassium 3.5, BUN 33, and creatinine 2. Hemoglobin is 11.3 today. White count is 17,000. IMPRESSION: 1. Patient presented to the hospital with increasing dyspnea and chest pain with abnormal elevation of troponin and CKs consistent with a non-ST elevation myocardial infarction. 2. Severe anemia secondary to GI blood loss, chronic plus acute. 3. History of severe coronary artery disease with previous bypass surgery. 4. History of severe peripheral occlusive disease. 5. Previous abdominal aortic aneurysm repair. 6. History of claudication. 7. History of chronic kidney disease. 8. Hypertension. 9. Hyperlipidemia. RECOMMENDATIONS: From a cardiology viewpoint the patient appears to be stable. Would continue the present approach. He is suppose to go for an endoscopy today. We will make further recommendations after review of the results of the endoscopy. cc: Wayne Barfield MD
[2017-02-07] MEDS ORDERED: DIPRIVAN 1% ONE (12:08)
[2017-02-07] MEDS ORDERED: XYLOCAINE-MPF 2% ONE (12:08)
[2017-02-07] MEDS ORDERED: NARCAN ONE (12:41)
[2017-02-07] MEDS ORDERED: FENTANYL ONE (12:51)
[2017-02-07] MEDS ORDERED: CHLORASEPTIC SPRAY MT PRN (13:32)
--- NOTE | 2017-02-07 14:10 | PROGRESS NOTE ---
DATE: 02/07/2017 SUBJECTIVE: Ching Salcido is an 82-year-old male who is status post left hip pinning. He has no new complaints today. OBJECTIVE: He is a well-developed, well-nourished male. They have been getting him up with therapy with touch down weightbearing. He is weak and cannot make much progress but he has been doing well as far as moving in the bed. His incision has healed nicely, we removed his sarthak. X-rays of his hip yesterday show that there is some displacement of the fracture from the immediate postoperative x-rays. IMPRESSION: Left hip fracture with some displacement. PLAN: I am going to continue his therapy for now, touch down weightbearing, and discuss this with Dr. Leon, allow him to review the x-rays. It may be that we have to consider converting this over to a bipolar hemiarthroplasty if there is any more displacement. I have discussed this with his as well. cc: Berny Kasper MD
--- NOTE | 2017-02-07 15:58 | Extremity Venous Study ---
PROCEDURE NAME: Venous U/S Bilateral Legs - 02/05/2017 BILATERAL LOWER EXTREMITY VENOUS ULTRASOUND: [employer] OPERATOR: Ganesh. REQUESTING PHYSICIAN: < INC 00:00:09> INDICATION: Edema and elevated D-dimer. FINDINGS: The deep and superficial veins of the bilateral lower extremities were visualized along their course. All veins are compressible with forward flow and no evidence of intraluminal thrombus. SUMMARY: No deep or superficial venous thrombosis in bilateral lower extremities cc: MD Jazmín Real CRNP
[2017-02-07] MEDS: MYCOSTATIN SUSP PO SCH (16:39)
--- NOTE | 2017-02-07 16:44 | OPERATIVE NOTE ---
PROCEDURE DATE: 02/07/2017 PROCEDURES: Esophagogastroduodenoscopy. PREOPERATIVE DIAGNOSIS: Heme-positive stool. Rule out upper GI bleed. POSTOPERATIVE DIAGNOSIS: Roselia esophagitis, mild. Normal upper GI endoscopy otherwise. DESCRIPTION OF PROCEDURE: After informed consent and adequate intravenous sedation by Anesthesia, the scope introduced in the esophagus. Patient has Roselia in the distal esophagus. Cardia, fundus, body, antrum, pylorus, duodenal bulb and second portion normal. No fresh or old blood. No bleeding lesions seen. The scope was withdrawn. The patient tolerated the procedure well without any immediate complications. cc: Brenda Collazo MD
[2017-02-07] MEDS: TYLENOL PO PRN (20:02)
[2017-02-08] MEDS: SOLU-MEDROL IV SCH ×3 (01:45→16:08)
[2017-02-08] MEDS: CARAFATE LIQUID PO SCH ×4 (02:56→20:20)
[2017-02-08] MEDS: TYLENOL PO PRN (02:59)
[2017-02-08] MEDS: XOPENEX NEB INH SCH ×6 (04:37→23:17)
[2017-02-08] MEDS: ATROVENT NEB INH SCH ×6 (04:37→23:17)
[2017-02-08] MEDS: ZOSYN 3.375 GM/NS 3.375 GM/50 ML IVPB IV SCH ×2 (05:40)
[2017-02-08] MEDS: PROTONIX 80 MG in NS 80 ML IV SCH (06:04)
[2017-02-08] MEDS: HUMULIN R SUBQ SCH ×4 (06:05→20:21)
[2017-02-08] MEDS: MYCOSTATIN SUSP PO SCH ×3 (06:11→15:17)
[2017-02-08 06:22] LABS: MANUAL DIFF NEEDED? NO
[2017-02-08 06:39] LABS: BASO% 0.1 % (0.0-0.8); EOS# 0.02 X1000 (0.0-0.7); EOS% 0.1 % (0.0-10.0); HEMATOCRIT 32.3 % (42.0-52.0); HEMOGLOBIN 10.9 g/dL (14.0-18.0); IMM GRAN% 0.7 % (0.0-0.5); LYMPH# 0.86 X1000 (1.2-3.4); MCHC 33.7 g/dL (33-37); MONO# 1.28 X1000 (0.11-0.59); MPV 9.7 FL (7.4-10.4); NEUT% 84.1 % (42.2-75.2); PLT 400 X1000 (130-400); RBC 3.63 XMIL (4.7-6.1)
[2017-02-08 06:43] LABS: ALBUMIN 3.3 g/dL (3.5-5.0); CALCIUM 8.2 mg/dL (8.8-10.2); MAGNESIUM 2.2 mg/dL (1.5-2.7); TOTAL BILIRUBIN 0.96 mg/dL (0.20-1.00); TOTAL PROTEIN 5.2 g/dL (6.3-8.3)
[2017-02-08] MEDS: PULMICORT INH SCH ×2 (07:45→20:48)
--- NOTE | 2017-02-08 08:03 | Diag Imaging Result Doc PS360 ---
EXAM: CHEST-PORTABLE HISTORY: poss HF TECHNIQUE: Portable upright AP COMPARISON: 02/05/2017 FINDINGS: The lungs are hyperexpanded. Sternal wires are present. The heart is not enlarged. No consolidation. No pleural effusions identified. IMPRESSION: Stable chest. Electronically signed by Jeffery Farris 02/08/2017 8:00 AM
[2017-02-08] MEDS: PERICOLACE PO SCH ×2 (08:38→20:20)
[2017-02-08] MEDS: HYDROMET LIQUID PO PRN ×2 (08:57→21:04)
[2017-02-08] MEDS ORDERED: LOVENOX SUBQ SCH (09:00)
[2017-02-08] MEDS: ATIVAN PO PRN ×2 (10:52→21:04)
--- NOTE | 2017-02-08 11:32 | PROGRESS NOTE ---
DATE: 02/08/2017 SUBJECTIVE: He had a rough night. He has not slept well in the last several nights, very restless. He said he very anxious. He usually takes a little cough medicine and did not feel like he was able to swallow very good. OBJECTIVE: Temperature 98.5 degrees, pulse 108, respirations 22, blood pressure 152/77. The pupils are equal and round. CVP less than 6 cm. Lungs are clear in all lung whitney. Cardiovascular: Regular rhythm and rate without murmur or S3. Urine output over a 1000 mL. Blood sugar 130-93. LABORATORY DATA: White count down to 14,250. Hematocrit 32, platelet count 400,000. Sodium 140, potassium 3.0, chloride 104, bicarb 22. BUN 34, creatinine 1.8. Troponin was 0.531 and then bumped up to 1.130. Chest x-ray from today: Stable chest. Sternal wires present. Heart is not enlarged. No consolidation. No pleural effusions. ASSESSMENT AND PLAN: 1. Left hip fracture with some displacement. Continue his therapy for now and touchdown weightbearing. Dr. Kasper is following and this is discussed with Dr. Leon. Reviewed the x- rays and we may have to consider converting over to bipolar hemiarthroplasty if there is more displacement. 2. Roselia esophagitis. Trouble with swallowing. Gastrointestinal bleed. The patient getting nystatin 5 mL p.o. t.i.d. 3. Presented to the hospital with increasing dyspnea and chest pain. Abnormal elevation of troponin. CPK consistent with [id number] myocardial infarction. Suspect O2 myocardial mismatch. 4. Severe anemia secondary to gastrointestinal bleed. He has been given some blood. 5. History of severe coronary artery disease. Previous bypass surgery. 6. Previous abdominal aortic aneurysm repair. 7. History of claudication. 8. Chronic kidney disease which appears to be stable. Of note, his hip and pelvic x-ray from 02/06/2017, new orthopedic hardware at the left hip fracture. No evidence of complication. Noninvasive venous studies done on 02/05/2017: No deep or superficial venous thrombosis. cc: Raul Cook MD
--- NOTE | 2017-02-08 13:40 | PROGRESS NOTE ---
DATE: 02/08/2017 SUBJECTIVE: Patient reports some dyspnea earlier but this has just recently improved. There has been no chest pain. He is not taking oral intake very well. OBJECTIVE: Vital Signs: Blood pressure 148/77, heart rate 99, and regular. Oxygen saturation 97% on nasal cannula at 2 L. There is no significant jugular venous distention. Chest: Auscultation of chest reveals diminished breath sounds diffusely. Cardiac Exam: Reveals distant heart sounds and a regular rate and rhythm. No murmur or gallop could be appreciated. There is no evidence of peripheral edema. Support stockings in place. LABORATORY DATA: Noteworthy for a troponin of 1.13 which is increased from most recent value yesterday of 0.531. Hematocrit is stable at 32.3 and appears to have been stable for 48 hours now. Upper GI endoscopy reported no active bleeding and only mild Roselia esophagitis but otherwise normal. IMPRESSION: 1. Recent left hip fracture with some displacement. 2. Recent severe anemia, requiring transfusion. Source not clear. 3. Elevated troponin. Probably is stress-induced related to severe anemia. 4. History of coronary disease and previous coronary bypass. 5. COPD, severe. RECOMMENDATIONS: 1. Given that hematocrit appears to be consistently stable and no active bleeding evident on upper GI endoscopy, would resume Lovenox. 2. Followup echocardiography. 3. Aggressively treat severe COPD. Will resume Spiriva. 4. Patient appears somewhat volume depleted clinically. If echocardiography study okay, will consider adding intravenous hydration. cc: Jaspreet Downing MD
[2017-02-08] MEDS: SPIRIVA INH SCH (15:23)
[2017-02-08] MEDS: PROTONIX IV SCH (16:08)
[2017-02-08] MEDS ORDERED: MISC. PHARMACY COMMUNICATION SCH (20:15)
[2017-02-08 20:22] LABS: HEMATOCRIT 32.9 % (42.0-52.0); HEMOGLOBIN 11.3 g/dL (14.0-18.0)
--- NOTE | 2017-02-08 21:04 | ECHO REPORT ---
ORDER DATE: 02/08/2017 MEASUREMENTS: Left atrium 4.1, aortic root 3.1. SUMMARY: 1. Technically difficult study due to limited acoustic window quality. Intravenous echo contrast agent Definity was utilized to enhance endocardial definition for purposes of assessing left ventricular function and wall motion. 2. Aortic mitral and tricuspid valves are without gross structural abnormality. Pulmonic valves not well demonstrated. There is mild tricuspid regurgitation. Estimated systolic PA pressure by Doppler is approximately 45-50 mmHg. Aortic root is normal size. 3. Normal left ventricular dimensions suggested. Estimated left ventricular ejection fraction approximately 40%. There is akinesis of the mid to apical anteroseptal region and apex. The left atrium is mildly enlarged. Right atrium, right ventricle are normal in size with grossly preserved right ventricular systolic function. 4. No pericardial effusion. 5. Appearance of inferior vena cava suggests some elevation central venous pressure. cc: Jaspreet Downing MD
[2017-02-09] MEDS: CARAFATE LIQUID PO SCH ×4 (01:39→19:27)
[2017-02-09] MEDS: SOLU-MEDROL IV SCH ×3 (01:40→17:10)
[2017-02-09] MEDS: XOPENEX NEB INH SCH ×6 (03:34→23:31)
[2017-02-09] MEDS: ATROVENT NEB INH SCH ×6 (03:34→23:31)
[2017-02-09] MEDS: PROTONIX IV SCH ×2 (04:13→17:11)
[2017-02-09 06:26] LABS: IMM GRAN# 0.06 X1000 (0.0-0.04); IMM GRAN% 0.5 % (0.0-0.5); LYMPH# 0.29 X1000 (1.2-3.4); LYMPH% 2.4 % (20.5-51.1); MANUAL DIFF NEEDED? YES; MCH 29.7 PG (27-31); MCHC 33.3 g/dL (33-37); MCV 89.2 FL (81-99); MONO# 0.79 X1000 (0.11-0.59); MONO% 6.6 % (1.7-9.3); MPV 9.8 FL (7.4-10.4); NEUT% 90.5 % (42.2-75.2); PLT 420 X1000 (130-400)
[2017-02-09 06:31] LABS: CALCIUM 8.2 mg/dL (8.8-10.2); MAGNESIUM 2.5 mg/dL (1.5-2.7); TOTAL BILIRUBIN 0.64 mg/dL (0.20-1.00); TOTAL PROTEIN 5.1 g/dL (6.3-8.3)
[2017-02-09] MEDS: MYCOSTATIN SUSP PO SCH ×3 (06:36→17:10)
[2017-02-09] MEDS: HUMULIN R SUBQ SCH ×4 (06:37→20:03)
[2017-02-09 06:56] LABS: LYMPHS 2 % (21-51); MONO 8 % (1-9)
[2017-02-09] MEDS: PULMICORT INH SCH ×2 (07:54→19:39)
[2017-02-09] MEDS: SPIRIVA INH SCH (07:54)
[2017-02-09] MEDS: ATIVAN PO PRN ×2 (08:09→21:08)
[2017-02-09] MEDS: PERICOLACE PO SCH ×2 (08:09→20:02)
--- NOTE | 2017-02-09 12:18 | PROGRESS NOTE ---
DATE: 02/09/2017 SUBJECTIVE: Patient reports no dyspnea nor chest discomfort on room air. OBJECTIVE: Vital Signs: Blood pressure 174/92, heart rate 106 and regular with ECG monitor showing sinus rhythm. Neck: There is no significant jugular venous distention. Chest: Auscultation of the chest reveals diminished breath sounds diffusely. Cardiac: Reveals a regular rate and rhythm without appreciable murmur or gallop. There is no evidence of peripheral edema. LAB DATA: Demonstrates hematocrit 33.0 which is stable over several days now. Echocardiography technically difficult but suggests wall-motion abnormality in distal LAD territory which was not noted on previous study. IMPRESSIONS: 1. Recent left hip fracture with some displacement. 2. Recent severe anemia, requiring transfusion. Evaluation in progress regarding source. Upper GI endoscopy benign. 3. Atherosclerotic coronary disease with history of previous coronary bypass grafting. 4. Abnormal troponin. Suspect this is likely stress induced related to severity of anemia. 5. Severe chronic obstructive pulmonary disease. RECOMMENDATIONS: 1. Repeat troponin. 2. Review echocardiography. 3. Continue medical management from a standpoint of coronary disease in light of her recent severe anemia and possible recent blood loss. 4. DVT prophylaxis with low-dose Lovenox. cc: Jaspreet Downing MD
[2017-02-09] MEDS: ASPIRIN PO SCH (12:22)
[2017-02-09] MEDS: LOPRESSOR PO SCH ×3 (12:22→19:25)
--- NOTE | 2017-02-09 12:27 | PROGRESS NOTE ---
DATE: 02/08/2017 SUBJECTIVE: The patient is awake and oriented. Wants to go home. No chest pain. Tolerating liquids but not taking much. We thought we would add some Ensure. Family at bedside. OBJECTIVE: Vital Signs: Blood pressure 140/77, heart rate 99, O2 saturation 97% on 2 L. HEENT: There is conjunctival pallor present. Neck: Supple. Trachea midline. Heart: Normal first and second heart sounds. Lungs: Clear. Abdomen: Benign. LABORATORY DATA: Hematocrit is stable at 32.3. Upper endoscopy yesterday by me is negative. No signs of obvious bleeding. IMPRESSIONS: 1. Left hip fracture with some displacement. 2. Severe anemia requiring transfusion and heme-positive stool with upper GI endoscopy negative. 3. Coronary artery disease. 4. Chronic obstructive pulmonary disease. RECOMMENDATIONS: Continue PPI. Hematocrit is stable. Treating COPD. Patient is getting an echocardiogram. Dr. Downing has started him on Lovenox. Will watch carefully for any signs of active bleeding. cc: Brenda Collazo MD
--- NOTE | 2017-02-09 12:27 | PROGRESS NOTE ---
DATE: 02/09/2017 SUBJECTIVE: The patient feels fine. He had one dark stool followed by some maroon stool and some dark stool this morning. They talked to me last night and we held the Lovenox. We are following the hematocrit. We just kept him on clear liquids. OBJECTIVE: Vital signs: Blood pressure 140/77, heart rate 100, O2 saturation 97% on 2 L. HEENT: Conjunctival pallor. Neck: Supple. Trachea midline. Heart: Normal first and second heart sounds. Lungs: Clear. Abdomen: Again, benign. Bowel sounds are present and normal. Extremities: Evidence of recent fracture. LABS: This morning labs include white count 12,000 which is improving. Hematocrit is again stable from last night, 33. IMPRESSIONS: 1. Ongoing gastrointestinal bleed with starting of Lovenox. We have held it. 2. Severe anemia. Right now hematocrit is stable. 3. Coronary artery disease. 4. Chronic obstructive pulmonary disease. RECOMMENDATIONS: 1. Stop the Lovenox and just keep him on clear liquids. 2. Treating the COPD. He is actually improving. 3. Watch the hematocrit carefully. If there is any drop we will transfuse him. 4. It will be very hard to check his colon and I think at this point we will just hold the Lovenox and see how he tolerates it. He is at risk for PE. I think will discuss together and decide whether to do a colonoscopy or not. -5 cc: Brenda Collazo MD
--- NOTE | 2017-02-09 13:12 | PROGRESS NOTE ---
DATE: 02/09/2017 SUBJECTIVE: Mr. Salcido had a better night. Feeling better. He did have a large maroon stool yesterday. He saw Dr. Collazo. He put him back on clear liquids. OBJECTIVE: General: Today, he is a little frustrated. He wants leave the hospital. Feels better. Vital signs: Temp 97.8 degrees, pulse 108, respirations 18, blood pressure 174/92. HEENT: Pupils are equal, round. Lungs: Clear in all lung whitney. Cardiovascular: Regular rhythm and rate without murmur or S3. Abdomen: Soft. Skin: Warm and dry. Intake and output: Urine output 1500 mL. LABS: Blood sugar 164, 134. White count 12,030, hematocrit is 33, platelet count 420,000. Chemistries: Sodium 139, potassium 4.0, chloride 104, BUN 22, creatinine 1.4, blood sugar 108, 164, 129. Troponin initially was 1.130. ASSESSMENT AND PLAN: 1. Recent left hip fracture with some displacement. Hematocrit seems to be consistently stable but he did have a large maroon bowel movement yesterday. So he had an upper GI which revealed Roselia esophagitis. May have to the looked at lower GI. I think I would hold the Lovenox for now. 2. Recent severe anemia requiring transfusion. Suspect lower GI blood loss. 3. Elevated troponin. Probably stress-induced related to severe anemia, oxygen, myocardium mismatched. 4. History of coronary artery disease status post coronary artery bypass graft in the past. 5. Chronic obstructive pulmonary disease. We will see what Dr. Collazo wants to do. We did get an echocardiogram yesterday, technically difficult study. Normal left ventricular dimensions suggested. Estimated left ventricular ejection fraction approximately 40%. There is akinesis of the mid and apical anterior septal region and apex. Left atrium was mildly enlarged. Right atrium and right ventricle normal size. Grossly preserved right ventricular systolic function. cc: Raul Cook MD
[2017-02-09] MEDS: HYDROMET LIQUID PO PRN ×2 (13:53→21:08)
[2017-02-10] MEDS: LOPRESSOR PO SCH ×2 (01:58→18:18)
[2017-02-10] MEDS: SOLU-MEDROL IV SCH ×2 (01:58→13:18)
[2017-02-10] MEDS: CARAFATE LIQUID PO SCH ×4 (01:58→21:02)
[2017-02-10] MEDS: ATROVENT NEB INH SCH ×6 (03:31→23:35)
[2017-02-10] MEDS: XOPENEX NEB INH SCH ×6 (03:31→23:35)
[2017-02-10] MEDS: ATIVAN PO PRN (04:04)
[2017-02-10] MEDS: PROTONIX IV SCH ×2 (04:04→16:50)
[2017-02-10 06:08] LABS: BASO% 0.1 % (0.0-0.8); EOS# 0.03 X1000 (0.0-0.7); EOS% 0.2 % (0.0-10.0); HEMATOCRIT 33.8 % (42.0-52.0); HEMOGLOBIN 11.3 g/dL (14.0-18.0); IMM GRAN# 0.06 X1000 (0.0-0.04); IMM GRAN% 0.4 % (0.0-0.5); LYMPH# 0.33 X1000 (1.2-3.4); LYMPH% 2.2 % (20.5-51.1); MANUAL DIFF NEEDED? YES; MCH 30.1 PG (27-31); MCHC 33.4 g/dL (33-37); MCV 90.1 FL (81-99); MONO# 0.73 X1000 (0.11-0.59); MONO% 4.9 % (1.7-9.3); MPV 9.9 FL (7.4-10.4); NEUT% 92.2 % (42.2-75.2); PLT 483 X1000 (130-400); RBC 3.75 XMIL (4.7-6.1)
[2017-02-10] MEDS: HUMULIN R SUBQ SCH ×4 (06:28→20:43)
[2017-02-10] MEDS: MYCOSTATIN SUSP PO SCH ×3 (06:29→17:00)
[2017-02-10 06:43] LABS: LYMPHS 2 % (21-51); MONO 2 % (1-9)
[2017-02-10 06:57] LABS: ALBUMIN 3.4 g/dL (3.5-5.0); CALCIUM 8.7 mg/dL (8.8-10.2); MAGNESIUM 2.4 mg/dL (1.5-2.7); POTASSIUM 4.4 mmol/L (3.5-5.1); TOTAL BILIRUBIN 0.65 mg/dL (0.20-1.00); TOTAL PROTEIN 5.2 g/dL (6.3-8.3)
[2017-02-10] MEDS: SPIRIVA INH SCH (08:15)
[2017-02-10] MEDS: PULMICORT INH SCH ×2 (08:16→19:10)
--- NOTE | 2017-02-10 08:41 | PROGRESS NOTE ---
DATE: 02/10/2017 CHIEF COMPLAINT: Shortness of breath, chest discomfort. SUBJECTIVE: Mr. Salcido is very sedated today. He was given Ativan at 4:00 in the morning. I am seeing him at about 8:13 in the morning. He was agitated or anxious and got the Ativan. He is hard to arouse today. According to the nurses, his general status has not changed very much. Telemetry shows sinus rhythm. OBJECTIVE: Blood pressure is 154/93, pulse 89, temperature 98 degrees, respirations 19. He is sleepy, hard to arouse. No significant skin changes. Chest: Diminished breath sounds at the bases. Heart sounds are regular and rhythmic. No gallop or murmur. Abdomen is nontender, soft. No masses. No hepatomegaly. Extremities showed no edema. Neurologic: He is sleepy. DIAGNOSTIC DATA: White count is 15,000, hemoglobin 11.3, platelet count 483, 000. Sodium is 140, potassium 4.4, BUN is 23, creatinine 1.4. The patient is awake, alert. IMPRESSION: 1. The patient presented with chest discomfort and shortness of breath following a recent orthopedic procedure. He also had suggestion of GI bleeding based on black stools and low hemoglobin. The patient apparently suffered a [id number] myocardial infarction secondary to significant anemia. 2. History of previous coronary artery bypass surgery. 3. Severe peripheral vascular disease. 4. Previous AAA repair. 5. History of chronic kidney disease. 6. Hypertension. 7. Hyperlipidemia. 8. The patient underwent upper endoscopy on 02/07/2017 that showed mild esophageal candidiasis. RECOMMENDATIONS: At this point in time from a cardiology viewpoint, I do not anticipate doing any specific invasive evaluation. The patient's general condition is probably not going to allow us to do anything aggressive. He would be a poor candidate for intervention and mandatory dual antiplatelet therapy with suspected/ongoing GI bleeding. At this point in time, since he is not having any ongoing angina pectoris, I would suggest a very conservative approach to his case. We would be happy to see him down the road. At this point in time, I believe we are going to sign off and see him as needed. cc: MD EDGARD Infante
[2017-02-10] MEDS: LOVENOX SUBQ SCH (08:56)
[2017-02-10] MEDS: PERICOLACE PO SCH ×2 (08:56→21:02)
[2017-02-10] MEDS: ASPIRIN PO SCH (08:56)
--- NOTE | 2017-02-10 09:01 | PROGRESS NOTE ---
DATE: 02/10/2017 SUBJECTIVE: He got some Ativan about 4 o'clock this morning. He is very sleepy and difficult to arouse so we will hold the sedation. Not any further sign of bleeding. He did, on Friday, a large pushpa stool. EGD revealed Roselia esophagitis. PHYSICAL EXAMINATION: Vital Signs: Temperature 98.1 degrees, pulse 88, respirations 20, blood pressure 119/67. HEENT: The pupils are equal and round. Lungs: Are clear in all lung whitney. Cardiovascular Examination: Regular rhythm and rate without murmur or S3. Abdomen: Soft. Skin: Is warm and dry. Is and Os: Urine output is 1300 mL. LABORATORY DATA: Blood sugar 143 and 110. ASSESSMENT AND PLAN: 1. Recent left hip fracture with some displacement. Hematocrit seems to be consistently stable but he did come in with a potential gastrointestinal bleed. Large pushpa stool on Friday. We did find, on EGD, Roselia esophagitis. 2. Blood loss anemia. Did get a transfusion. His hematocrit is stable at 33. Chemistries looked good. Creatinine is 1.4. 3. We need to hold his sedation and see if we can get him to wake up a little better. Hopefully, can be discharged home. 4. Note, underlying chronic obstructive pulmonary disease and then presented with elevation in troponin suggestive of O2 cardiac mismatch. I think, at this point, we need to allow him to wake up and get him home unless gastroenterology feels strongly about doing a colonoscopy at this point. We will get set that up as an outpatient. cc: Raul Cook MD
--- NOTE | 2017-02-10 12:16 | PROGRESS NOTE ---
DATE: 02/10/2017 SUBJECTIVE: Patient is currently resting in bed. He is currently sleeping. His son is at the bedside. According to records, there is no nausea, vomiting, or vomiting blood reported. There is no evidence of blood in the stools reported. Today, he had 2 liquid brown stools. PHYSICAL EXAMINATION: Vital Signs: Temperature 98.1 degrees, pulse rate of 88, respiratory rate of 22, blood pressure 119/67, saturating 97% on 2 L. General Examination: Moderately built, moderately nourished, lying in bed, currently sleeping. HEENT: Pale conjunctivae. No icterus. Positive nasal cannula. Abdomen: Soft, nontender, and nondistended. Bowel sounds present. Extremities: No cyanosis, clubbing. Neurologic: He is currently sleeping. LABS: Hemoglobin and hematocrit 11.3 and 33.8, white count of 15.03, platelet count of 483,000, MCV of 90.1. Sodium 140, potassium 4.4, chloride 103, bicarb 23, anion gap of 14, BUN of 23, creatinine 1.4, glucose of 113, calcium is 8.7, phosphorus 2.6, magnesium 2.4. Total bilirubin is 0.65, AST 19, ALT 22, alkaline phosphatase 56, total protein 5.2, albumin of 3.4. Troponin is 1.69. ASSESSMENT AND PLAN: 1. Gastrointestinal bleed with negative EGD. Could be small-bowel source versus colonic source but so far his hematocrit has been stable and he is not showing any signs of active bleeding. We will hold off on any kind of intervention. We will continue to watch hemoglobin and hematocrit. We will continue him on proton pump inhibitors. 2. Coronary artery disease with a troponin leak. He is on aspirin and Lovenox. We have to be extra careful with the blood thinners as he had a recent massive gastrointestinal bleeding requiring 4 units of blood transfusion. 3. Gastrointestinal prophylaxis with proton pump inhibitors as have been doing. 4. Anemia. We will start him on Iron C b.i.d. and multivitamin once a day. 5. Bowel regimen with Marry-Colace to continue. 6. Chronic obstructive pulmonary disease, being managed by the primary team. 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 8. I discussed the plan of care with the patient's family at bedside. All questions were answered. Please call us with any questions. cc: MD Raul Alfaro MD
--- NOTE | 2017-02-10 12:32 | PROGRESS NOTE ---
DATE: 02/10/2017 SUBJECTIVE: Mr. Salcido is seen today for followup care regarding his hip pinning. Recent x- rays obtained after surgery show some transition or loss of fixation of the femoral neck fracture and percutaneous pinning. ASSESSMENT/PLAN: I have discussed with both him and his the possibility he will need to convert this to a bipolar in the future. We will consider revision hip surgery pending full medical clearance. At this point in time, he can be treated from a medical standpoint and released from the hospital and follow up with me in the office as an outpatient. At that time if he is fully medically stable, we will consider revision hip fixation. cc: Pedrito Leon MD
[2017-02-10] MEDS: TYLENOL PO PRN ×2 (13:19→21:59)
[2017-02-11] MEDS ORDERED: SODIUM BICARBONATE 8.4% ONE (00:20)
[2017-02-11] MEDS: CARAFATE LIQUID PO SCH ×2 (01:28→08:15)
[2017-02-11] MEDS: SOLU-MEDROL IV SCH (01:28)
[2017-02-11] MEDS ORDERED: ATIVAN IV ONE (01:52)
[2017-02-11] MEDS: ATROVENT NEB INH SCH ×3 (03:05→11:10)
[2017-02-11] MEDS: XOPENEX NEB INH SCH ×3 (03:05→11:10)
[2017-02-11] MEDS ORDERED: HYDROMET LIQUID PO PRN (04:12)
[2017-02-11] MEDS ORDERED: HYDROMET LIQUID PO ONE (04:12)
[2017-02-11] MEDS: PROTONIX IV SCH (04:18)
[2017-02-11] MEDS: LOPRESSOR PO SCH (05:12)
[2017-02-11 05:21] LABS: HEMATOCRIT 35.6 % (42.0-52.0); HEMOGLOBIN 11.7 g/dL (14.0-18.0); IMM GRAN% 0.6 % (0.0-0.5); LYMPH# 0.47 X1000 (1.2-3.4); MANUAL DIFF NEEDED? YES; MCH 29.8 PG (27-31); MCHC 32.9 g/dL (33-37); MCV 90.8 FL (81-99); MONO# 0.73 X1000 (0.11-0.59); MONO% 4.7 % (1.7-9.3); MPV 9.8 FL (7.4-10.4); NEUT% 91.7 % (42.2-75.2); PLT 569 X1000 (130-400); RBC 3.92 XMIL (4.7-6.1)
[2017-02-11 05:36] LABS: ALBUMIN 3.4 g/dL (3.5-5.0); CALCIUM 9.2 mg/dL (8.8-10.2); MAGNESIUM 2.4 mg/dL (1.5-2.7); POTASSIUM 4.3 mmol/L (3.5-5.1); TOTAL BILIRUBIN 0.67 mg/dL (0.20-1.00); TOTAL PROTEIN 5.7 g/dL (6.3-8.3)
[2017-02-11] MEDS: HUMULIN R SUBQ SCH ×2 (06:34→11:33)
[2017-02-11] MEDS: MYCOSTATIN SUSP PO SCH ×2 (06:38→11:57)
[2017-02-11 06:41] LABS: ALLEN TEST YES; BE -0.7 mmoll (-3.0-3.0); BLOOD TYPE ARTERIAL; DRAW SITE R RADIAL; METHB 1.2 % (0.0-1.5); O2(CT) 15.9 mL/dL (15.0-23.0); PCO2(98.6) 44 mmHg (35-45); PO2(98.6) 151 mmHg (60-100); SAMPLE BLOOD; SAO2 98.8 % (95.0-100.0); THB 11.5 g/dL (11.5-17.4); pH(98.6) 7.36 (7.35-7.45)
[2017-02-11 06:42] LABS: MODALITY VENTIMASK
[2017-02-11 07:18] LABS: BANDS 2 % (0-1); LYMPHS 6 % (21-51); MONO 6 % (1-9)
--- NOTE | 2017-02-11 07:36 | Diag Imaging Result Doc PS360 ---
EXAM: CHEST-PORTABLE INDICATION: shortness of breath TECHNIQUE: One view COMPARISON: 02/08/2017 FINDINGS: COPD changes are again noted. Atelectasis and/or scarring at the lung bases is approximately stable. There are no new consolidations. Cardiac silhouette is stable. IMPRESSION: Stable chest. Electronically signed by Pedrito Danielson 02/11/2017 7:33 AM
[2017-02-11] MEDS: PULMICORT INH SCH (07:57)
[2017-02-11] MEDS: SPIRIVA INH SCH (07:57)
[2017-02-11 08:15] VITALS: BP 164/79
[2017-02-11] MEDS: LOVENOX SUBQ SCH (08:15)
[2017-02-11] MEDS: PERICOLACE PO SCH (08:15)
[2017-02-11] MEDS: ASPIRIN PO SCH (08:15)
--- NOTE | 2017-02-11 10:22 | DISCHARGE SUMMARY ---
ADMISSION DATE: 02/05/2017 DISCHARGE DATE: 02/11/2017 HISTORY OF PRESENT ILLNESS: He presented with shortness of breath and chest discomfort. Mr. Salcido is an 82-year-old, ill-appearing, white male who presented with a medical history of recent left femoral neck closed reduction, just pins, 01/28/[address] Leon. A medical history of peripheral artery disease, coronary artery disease, status post CABG, COPD without home oxygen. He was admitted on 01/27/2017 to 01/30/2017. He had a fall with left femoral neck fracture. Closed reduction, percutaneous pinning of left femoral neck on 01/28/2017. His hemoglobin was 11. Creatinine was 1.5. He returned to the emergency room on 02/05/2017 with shortness of breath, chest discomfort. Upon further evaluation, he was found to have an elevated white count of 20,000, hemoglobin of 6, hematocrit of 18. Creatinine of 1.8. Elevated cardiac enzymes. Troponin was 0.182 and repeat was 0.237. The patient was discussed with cardiology. HOSPITAL COURSE: He was admitted to the unit. He had an elevated D-dimer of 1.24 but ruled out for a PE with a V/Q scan. Chest x-ray and V/Q scan showed COPD, no obvious sign of pneumonia. Temperature was normal on admission. Vital signs were stable except for tachycardia. Did have saturation, according to his , in the 80s prior to oxygen being placed on admission. ABGs were ordered. Results are from the lab and history, he had been having black tarry stools and hemoglobin was 6. He was given a total of 6 units of packed red blood cells and admitted. He is on aspirin, Plavix, and he was on Eliquis so he was put on a Protonix drip. EGD was performed. Found esophageal candidiasis. Otherwise no active bleeding. He did have another large maroon stool. I think he got a colonoscopy. However, patient was very anxious, required quite a bit of Ativan, and he slept most of the time. He had no further sign of bleeding. He wanted to go home. He did not want to pursue colonoscopy. He did not want to pursue a heart catheterization. The risks and benefits were explained to him. PAST MEDICAL HISTORY: 1. Iron-deficiency anemia. 2. Chronic kidney disease stage III. 3. Coronary artery disease, status post CABG. 4. Peripheral artery disease. 5. COPD, on home O2. 6. Grade 1 diastolic dysfunction. 7. Hypertension. 8. Hyperlipidemia. 9. Transient ischemic attack in 1999. 10. Gastroesophageal reflux disease. 11. Benign prostatic hypertrophy. DISPOSITION: Plan to discharge him home. LABORATORIES: From today, white count 15,680, hematocrit is 35, platelet count 569,000. Chemistry: Sodium 139, potassium 4.3, chloride 102, BUN 25, creatinine 0.5. Blood sugars have been 134, 138, 112. Albumin was 3.4. Chest x-ray was stable. PLAN: Dr. Leon was following. Dr. Leon felt continue his physical therapy. He may have to be converted to a bipolar in the future as far as his hip and consider revision of hip pending full medical clearance. At this point, he is insistent on going home. We will let him go home and continue Home Health. As far as his gastrointestinal bleed, negative EGD, candidiasis. His hematocrit is stable. As far as coronary artery disease, he had some troponin leak. He is on aspirin and has to be careful with blood thinners at this point so we will just continue the aspirin and leave him off of the Eliquis and Plavix now. General weakness and deconditioning. Encourage his physical therapy and home health. cc: Raul Cook MD
--- NOTE | 2017-02-11 12:37 | EKG Report ---
Test Performed on : 02/11/2017 07:50:56 AM Test Reason : SOB/ PE? right heart stress pattern? Blood Pressure : / mmHG Vent. Rate : 099 BPM Atrial Rate : 099 BPM P-R Int : 158 ms QRS Dur : 110 ms QT Int : 378 ms P-R-T Axes : 079 -56 128 degrees QTc Int : 485 ms Normal sinus rhythm. Left axis deviation Anterolateral infarct (cited on or before 05-FEB-2017) Abnormal ECG When compared with ECG of 05-FEB-2017 11:25, aberrant conduction. is no longer present Serial changes of Anterior infarct present Confirmed by Zaria Medina MD ([id number]) on 02/11/2017 2:08:02 PM
--- NOTE | 2017-02-16 10:54 | PROGRESS NOTE ---
DATE: 02/11/2017 SUBJECTIVE: The patient had another maroon stool. The patient was too sick to be prepped for colonoscopy and he does want to pursue colonoscopy. In any case, he wants to go home. He is getting restless. Dr. Leon is following about pinning his left hip. Currently, discharge planning is being done. OBJECTIVE: Vital Signs: Stable. HEENT: There is conjunctival pallor present. Neck: Supple. Trachea midline. Heart: Normal. Lungs: Normal. Abdomen: Benign. Extremities: Left hip has displaced fracture. Labs: Noted hematocrit. However, he did have a maroon stool recorded by the nurses. ASSESSMENT: 1. Past medical history of iron-deficiency anemia, chronic. 2. Hemoccult-positive stool. Initially melena with a negative EGD and now maroon stool with anemia as well. 3. Coronary artery disease, status post coronary artery bypass graft. 4. Peripheral arterial disease. 5. Chronic obstructive pulmonary disease. 6. Hypertension. 7. Transient ischemic attack. 8. Benign prostatic hyperplasia. 9. Left hip fracture. PLAN: If his is hematocrit is stable, he needs colonoscopy at some time. Currently, he is very anxious. I do recommend leaving him off Eliquis and Plavix until we get a colonoscopy at some time. He also needs rehab. It is a complicated patient but at this time holding off blood thinners and just leaving him on a small dose of aspirin is probably the best thing to do. Dr. Raul Cook is just going to do that. cc: Brenda Collazo MD
== END 2017-02-11 12:42 | disposition home health service (06) ==
LOC: ED 11:03 → ICU 17:50 → SUATTDRO 17:50
PROVIDERS: ATTEND Emergency Medicine

== ENCOUNTER 2017-03-25 04:23 | Inpatient (IN) ==
[2017-03-24 11:41] LABS: MANUAL DIFF NEEDED? NO
[2017-03-24 11:51] LABS: BASO% 0.4 % (0.0-0.8); EOS# 0.33 X1000 (0.0-0.7); EOS% 3.3 % (0.0-10.0); HEMATOCRIT 40.8 % (42.0-52.0); HEMOGLOBIN 13.8 g/dL (14.0-18.0); IMM GRAN# 0.02 X1000 (0.0-0.04); IMM GRAN% 0.2 % (0.0-0.5); LYMPH# 1.23 X1000 (1.2-3.4); LYMPH% 12.4 % (20.5-51.1); MCH 29.3 PG (27-31); MCHC 33.8 g/dL (33-37); MCV 86.6 FL (81-99); MONO# 0.68 X1000 (0.11-0.59); MONO% 6.9 % (1.7-9.3); MPV 10.6 FL (7.4-10.4); NEUT% 76.8 % (42.2-75.2); PLT 236 X1000 (130-400); RBC 4.71 XMIL (4.7-6.1)
[2017-03-24 11:54] LABS: URINE MICRO REVIEW NEEDED? NO; URINE SOURCE CLEAN CATCH
[2017-03-24 11:55] LABS: BILIRUBIN URINE NEGATIVE (NEGATIVE); BLOOD URINE NEGATIVE (NEGATIVE); COLOR YELLOW; GLUCOSE URINE NEGATIVE (NEGATIVE); LEUKOCYTES URINE NEGATIVE (NEGATIVE); NITRITE URINE NEGATIVE (NEGATIVE); PH URINE 5.5; PROTEIN URINE NEGATIVE (NEGATIVE); SP GRAVITY URINE 1.011; TURBIDITY URINE CLEAR (CLEAR); UROBILINOGEN URINE NORMAL (NORMAL)
[2017-03-24 11:57] LABS: UR EPITHELIAL CELLS <10 /HPF (<10); URINE BACTERIA NEGATIVE /HPF; URINE RBC <10 /HPF (<10); URINE WBC <10 /HPF (<10)
[2017-03-24 11:59] LABS: INR 1.02; PROTIME 10.7 Seconds (9.2-11.7)
[2017-03-24 12:27] LABS: CALCIUM 9.6 mg/dL (8.8-10.2); POTASSIUM 4.1 mmol/L (3.5-5.1)
[2017-03-25] MEDS ORDERED: COLACE ONE (07:31)
[2017-03-25] MEDS ORDERED: CELEBREX ONE (07:31)
[2017-03-25] MEDS ORDERED: PEPCID ONE (07:31)
[2017-03-25] MEDS ORDERED: LR 1,000 ML ONE (07:31)
[2017-03-25] MEDS ORDERED: REGLAN ONE (07:31)
[2017-03-25] MEDS ORDERED: LYRICA ONE (07:31)
[2017-03-25] MEDS ORDERED: KEFZOL 2 GM/D5W 2 GM/50 ML IVPB ONE (07:32)
[2017-03-25] MEDS ORDERED: DUONEB (A & A) MISC PRN (07:40)
[2017-03-25] MEDS ORDERED: HYDROMET LIQUID PO PRN (07:40)
[2017-03-25] MEDS ORDERED: VENTOLIN HFA INH PRN (07:40)
[2017-03-25] MEDS ORDERED: DURAMORPH ONE (07:41)
[2017-03-25] MEDS ORDERED: TORADOL ONE (07:41)
[2017-03-25] MEDS ORDERED: SENSORCAINE-MPF 0.5%/EPI 1:200,000 ONE (07:42)
[2017-03-25] MEDS ORDERED: EXPAREL 1.3% ONE (07:42)
[2017-03-25] MEDS ORDERED: CYKLOKAPRON 1,000 MG/NS 1,000 MG/100 ML IVPB ONE (07:42)
[2017-03-25] MEDS ORDERED: NEOSPORIN G.U. IRRIGANT ONE (07:42)
[2017-03-25] MEDS ORDERED: SODIUM CHLORIDE 0.9% ONE (07:42)
[2017-03-25] MEDS ORDERED: NEO-SYNEPHRINE ONE (08:15)
[2017-03-25] MEDS ORDERED: QUELICIN (DOSE) ONE (08:18)
[2017-03-25] MEDS ORDERED: FENTANYL ONE (08:19)
[2017-03-25] MEDS ORDERED: DIPRIVAN 1% ONE (08:19)
[2017-03-25] MEDS ORDERED: PEPCID PO SCH (09:00)
[2017-03-25] MEDS ORDERED: PLAVIX PO SCH (09:00)
[2017-03-25] MEDS ORDERED: DECADRON ONE (09:39)
[2017-03-25] MEDS ORDERED: ZOFRAN ONE (09:39)
[2017-03-25 09:42] LABS: URINE MICRO REVIEW NEEDED? NO; URINE SOURCE CATH
[2017-03-25 09:47] LABS: BILIRUBIN URINE NEGATIVE (NEGATIVE); BLOOD URINE NEGATIVE (NEGATIVE); COLOR YELLOW; GLUCOSE URINE NEGATIVE (NEGATIVE); LEUKOCYTES URINE NEGATIVE (NEGATIVE); NITRITE URINE NEGATIVE (NEGATIVE); PH URINE 5.5; PROTEIN URINE NEGATIVE (NEGATIVE); SP GRAVITY URINE 1.012; TURBIDITY URINE CLEAR (CLEAR); UR EPITHELIAL CELLS <10 /HPF (<10); URINE BACTERIA NEGATIVE /HPF; URINE RBC <10 /HPF (<10); URINE WBC <10 /HPF (<10); UROBILINOGEN URINE NORMAL (NORMAL)
--- NOTE | 2017-03-25 11:11 | OPERATIVE NOTE ---
PROCEDURE DATE: 03/25/2017 PREOPERATIVE DIAGNOSIS: Femoral neck nonunion, left hip. POSTOPERATIVE DIAGNOSIS: Femoral neck nonunion, left hip. PROCEDURE PERFORMED: 1. Left total hip replacement. 2. Removal of hardware, left hip. SURGEON: Catalino Leon MD. STOCKROOM INVENTORY CLERK: ILANA Segovia. ANESTHESIA: General. COMPLICATIONS: None. PROCEDURE IN DETAIL: This 82-year-old male presents for failure of a femoral neck fracture to heal, for a total hip replacement. Risks, benefits, and no guarantees were discussed, and he was willing to proceed. He was taken to the operating room and satisfactory anesthesia obtained. He was placed in the left lateral position and all bony prominences padded. Neutral alignment was maintained of the spine. The left hip was prepped and draped in the usual sterile fashion. A time-out was taken to confirm operative site, procedure, and patient. Posterior approach to the left hip was undertaken, starting at the previous incision for the percutaneous screws and carried proximally and posterolaterally over the hip. Dissection was carried down through the skin and deep fascia. A Charnley retractor was inserted. The 3 previous percutaneous screws were removed en bloc. A piriformis and external rotator release was performed off the back of the hip capsule and reflected to protect the sciatic nerve. A capsulotomy incision was made and the hip gently dislocated. A femoral neck osteotomy was made roughly 5-6 mm above the lesser trochanter. Retractors were placed over the front and back edge of the acetabulum. The acetabulum was exposed. Sequential reaming of the acetabulum was undertaken up to a 57 reamer. A DePuy O'Brien 58 outer diameter DuoFix cup was then impacted in the acetabulum in roughly 45 degrees of abduction and 20 degrees of anteversion. This was fully seated with press-fit fixation. An additional 25 length screw was placed in the 12 o'clock position of the cup. The trial liner was placed in the cup and the proximal femur elevated into the wound. Sequential broaching with a Zefanclub broach system was undertaken up to a size 15 stem. This had good axial and rotational stability with roughly 10 degrees of anteversion. High offset neck reproduced the best anatomy. Trial heads were performed and slight instability was noted at roughly 60 degrees. A 10 degree lip liner was inserted with improvement up to 80 degrees of internal rotation with the hip flexed at 90 degrees in neutral adduction. A +8 neck length was utilized to accommodate for leg- length discrepancy preoperatively with shortening of the leg. Trial implants were removed and a 10 degree liner impacted in the acetabular shell with secure fixation. Shell liner interface as well as the liner bone interface was checked with good stability. A size 15 high offset Corail was impacted in the proximal femur with secure axial and rotational stability in 10 degrees of anteversion. A ceramic +8 neck, 36 head ball was impacted on the Dinero taper and the hip reduced. Final range of motion was full extension with the knee at 90 degrees, no obvious impingement posteriorly, and hip flexion to 90 degrees with roughly 80 degrees internal rotation without dislocation of the hip. The wound was copiously irrigated with irrigant. The joint capsule was injected with Exparel for pain management. A Hemovac drain was placed. The deep fascia was closed with #1 Vicryl. The subcutaneous was closed with 2-0 Vicryl and the skin with skin sarthak. Sterile dressings completed the closure. The patient was recovered from anesthesia and transferred to the recovery room in stable condition. No intraoperative complications were noted. Instrument count and sponge count was correct at the time of closure. cc: Pedrito Leon MD
[2017-03-25] MEDS: DEMEROL ONE ×3 (11:21→11:58)
[2017-03-25] MEDS ORDERED: NS 1,000 ML ONE (11:54)
[2017-03-25] MEDS ORDERED: ZOFRAN IV PRN (12:45)
[2017-03-25] MEDS ORDERED: MORPHINE IV PRN (12:45)
[2017-03-25] MEDS ORDERED: AMBIEN PO PRN (12:45)
[2017-03-25] MEDS ORDERED: MILK OF MAGNESIA PO PRN (12:45)
[2017-03-25] MEDS: DEMEROL IV PRN ×2 (13:30→15:51)
[2017-03-25] MEDS ORDERED: AMIDATE ONE (13:58)
[2017-03-25] MEDS: MICARDIS PO SCH (14:18)
[2017-03-25] MEDS: NORVASC PO SCH (14:19)
[2017-03-25] MEDS: TOPROL XL PO SCH (14:19)
[2017-03-25] MEDS ORDERED: KEFZOL 2 GM/D5W 2 GM/50 ML IVPB IV SCH (14:30)
[2017-03-25] MEDS ORDERED: CYKLOKAPRON 1,000 MG in NS 100 ML IV ONE (14:45)
[2017-03-25] MEDS: NS 1,000 ML IV SCH (14:57)
[2017-03-25] MEDS: ULTRAM PO SCH ×2 (15:05→17:56)
[2017-03-25] MEDS: KEFZOL 2 GM/D5W 2 GM/50 ML IVPB IV SCH (15:51)
[2017-03-25] MEDS ORDERED: KEFZOL 1 GM/D5W 1 GM/50 ML IVPB IV SCH (16:30)
[2017-03-25] MEDS: TYLENOL PO SCH (17:56)
--- NOTE | 2017-03-25 19:18 | PROGRESS NOTE ---
DATE: 03/25/2017 Mr. Salcido is seen for postop status post conversion to hip replacement. Presently, he is resting quietly. He appears to be motor and sensory intact. Bandage is clean and dry. Vital signs are stable. We have discontinued the Xarelto due to his Plavix, which he has resumed. We will plan on mobilizing him tomorrow. At the present time, he appears to be stable. cc: Pedrito Leon MD
[2017-03-25] MEDS: SYMBICORT 160/4.5 MICROGM INHALER INH SCH (19:44)
[2017-03-26] MEDS: KEFZOL 2 GM/D5W 2 GM/50 ML IVPB IV SCH (00:17)
[2017-03-26] MEDS: NS 1,000 ML IV SCH ×2 (00:17→13:20)
[2017-03-26] MEDS: COLACE PO SCH ×2 (00:18→21:25)
[2017-03-26] MEDS: LIPITOR PO SCH ×2 (00:19→21:24)
[2017-03-26] MEDS: FLOMAX PO SCH ×3 (00:19→21:25)
[2017-03-26] MEDS: LYRICA PO SCH ×3 (00:19→21:24)
[2017-03-26] MEDS: NORVASC PO SCH ×3 (00:20→21:25)
[2017-03-26] MEDS: PERIDEX MT SCH ×3 (00:20→21:24)
[2017-03-26] MEDS: TYLENOL PO SCH ×6 (00:21→21:24)
[2017-03-26] MEDS: ULTRAM PO SCH ×5 (00:21→21:34)
[2017-03-26] MEDS: TOPROL XL PO SCH ×3 (00:22→21:24)
[2017-03-26] MEDS: XARELTO PO SCH ×2 (04:42→06:06)
[2017-03-26 06:30] LABS: HEMATOCRIT 31.6 % (42.0-52.0); HEMOGLOBIN 10.3 g/dL (14.0-18.0)
[2017-03-26 06:50] LABS: CALCIUM 8.3 mg/dL (8.8-10.2); POTASSIUM 4.9 mmol/L (3.5-5.1)
[2017-03-26] MEDS: SPIRIVA INH SCH (07:23)
[2017-03-26] MEDS: SYMBICORT 160/4.5 MICROGM INHALER INH SCH ×2 (07:23→19:40)
[2017-03-26] MEDS: ASTEPRO NASAL SPRAY NAS SCH (07:57)
--- NOTE | 2017-03-26 07:57 | PROGRESS NOTE ---
DATE: 03/26/2017 SUBJECTIVE: Mr. Salcido was seen postoperative day #1 of hip replacement. OBJECTIVE: Presently he is afebrile with stable vital signs. Hematocrit of 31. Incision is clean and dry. There are no signs of immediate complication. We will plan on mobilizing today. Depending on how he does, we will make discharge plans tomorrow for either home therapy or inpatient rehab. cc: Pedrito Leon MD
[2017-03-26] MEDS ORDERED: DECADRON IV ONE (09:00)
[2017-03-26] MEDS: MICARDIS PO SCH (09:01)
[2017-03-26] MEDS: PEPCID PO SCH (09:01)
[2017-03-26] MEDS: OXY IR PO PRN (13:20)
[2017-03-26 19:32] LABS: URINE MICRO REVIEW NEEDED? NO; URINE SOURCE CATH
[2017-03-26 19:37] LABS: BILIRUBIN URINE NEGATIVE (NEGATIVE); BLOOD URINE LARGE (NEGATIVE); COLOR YELLOW; GLUCOSE URINE NEGATIVE (NEGATIVE); LEUKOCYTES URINE TRACE (NEGATIVE); NITRITE URINE NEGATIVE (NEGATIVE); PH URINE 5.5; PROTEIN URINE TRACE mg/dL (NEGATIVE); SP GRAVITY URINE 1.019; TURBIDITY URINE CLEAR (CLEAR); UROBILINOGEN URINE NORMAL (NORMAL)
[2017-03-26 19:39] LABS: UR EPITHELIAL CELLS <10 /HPF (<10); URINE BACTERIA NEGATIVE /HPF; URINE CULTURE NEEDED? YES; URINE RBC 20-40 /HPF (<10); URINE WBC <10 /HPF (<10)
[2017-03-27] MEDS: TYLENOL PO SCH ×3 (02:11→12:04)
[2017-03-27] MEDS: OXY IR PO PRN (02:16)
[2017-03-27] MEDS: NS 1,000 ML IV SCH (03:17)
[2017-03-27] MEDS: ULTRAM PO SCH ×2 (05:11→09:36)
[2017-03-27] MEDS: XARELTO PO SCH (05:11)
[2017-03-27 06:31] LABS: HEMATOCRIT 26.6 % (42.0-52.0); HEMOGLOBIN 8.7 g/dL (14.0-18.0)
[2017-03-27] MEDS: SYMBICORT 160/4.5 MICROGM INHALER INH SCH (07:30)
[2017-03-27] MEDS: SPIRIVA INH SCH (07:30)
[2017-03-27] MEDS: MICARDIS PO SCH (09:35)
[2017-03-27] MEDS: NORVASC PO SCH (09:35)
[2017-03-27] MEDS: LYRICA PO SCH (09:36)
[2017-03-27] MEDS: PEPCID PO SCH (09:36)
[2017-03-27] MEDS: TOPROL XL PO SCH (09:36)
[2017-03-27] MEDS: PERIDEX MT SCH (09:38)
[2017-03-27] MEDS: ASTEPRO NASAL SPRAY NAS SCH (09:39)
[2017-03-27 13:04] VITALS: BP 125/57
--- NOTE | 2017-03-27 15:19 | DISCHARGE SUMMARY ---
ADMISSION DATE: 03/25/2017 DISCHARGE DATE: 03/27/2017 ADMITTING DIAGNOSIS: 1. Nonunion left hip/femoral neck fracture. 2. Degenerative joint disease. 3. Hypertension. DISCHARGE DIAGNOSES: 1. Nonunion left hip/femoral neck fracture. 2. Degenerative joint disease. 3. Hypertension. 4. Acute blood loss anemia. ADMITTING HISTORY AND HOSPITAL COURSE: This 82-year-old male, with a nonunion of a left femoral neck fracture, presents for surgical hip replacement. He was admitted to the hospital on 03/25/2017 and underwent a posterior left hip replacement with removal of previous hardware. Postoperatively, he is afebrile with stable vital signs. He has been mobilized well. He has had some urinary retention and had a Ball replaced. At the present time, he is doing well with the Ball. He is discharged home today for outpatient followup. He is to return in 12 days for followup. We have arranged for home therapy. DISCHARGE MEDICATIONS: Include Tylenol #3, one to 2 every 6 hours as needed for pain, Ventolin inhaler, albuterol, ipratropium inhaler, Norvasc 2.5 mg b.i.d., Lipitor 10 mg at bedtime, Symbicort 160/4.5 mcg mixed with formoterol fumarate 2 puffs b.i.d., Pepcid 20 mg daily, antacid of choice as needed, Toprol 50 mg b.i.d., Flomax 0.5 mg at bedtime, Micardis 80 mg daily, Spiriva 1 puff daily. FOLLOWUP: He is to return my office roughly 12 days' time for repeat examination. He is also on Plavix, which he is to take regularly. We will see him back in the interim for any worsening signs or symptoms. cc: Pedrito Leon MD
== END 2017-03-27 15:56 | disposition home or self-care (01) ==
LOC: SURHOLD 04:23 → 4N 09:21
PROVIDERS: ADMIT Orthopaedic Surgery Adult Reconstructive Orthopaedic Surgery; ATTEND Orthopaedic Surgery Adult Reconstructive Orthopaedic Surgery